=== PATIENT | male | born 1930 | race Hispanic/Latino ===

== ENCOUNTER 2017-12-21 03:59 | Inpatient (IN) | payer MEDICARE ==
[~2017-12-21] VITALS: Ht 188 cm; Wt 94.3 kg
[~2017-12-21 03:59] MED LIST: DIABETA5 M1; NOVOLOG100 UNIT/2; Z.0.DIOVAN160 MG; Z.0.NIASPAN500 MG; Z.0.PRINIVIL20 MG; [UNRECOGNIZED DRUG - OTHER]; [UNRECOGNIZED DRUG - OTHER]
[2017-12-21] MEDS ORDERED: LIDOCAINE JELLY 2% 10ML URO-JET TOP ONE (04:15)
[2017-12-21 04:27] LABS: BASOPHILS # (AUTO) 0.1 (0.0-0.1); BASOPHILS % 0.6 % (0.0-1.0); EOSINOPHILS # (AUTO) 0.3 (0.0-0.4); EOSINOPHILS % 3.3 % (0.0-6.0); HEMATOCRIT 40.2 % (38.2-49.6); HEMOGLOBIN 13.6 g/dL (14.0-18.0); LYMPHOCYTES # (AUTO) 3.2 (1.0-3.2); LYMPHOCYTES % 34.4 % (18.0-39.1); MEAN CORPUSCULAR HEMOGLOBIN 32.8 pg (28-32); MEAN CORPUSCULAR HGB CONC 33.8 g/dL (31-35); MEAN CORPUSCULAR VOLUME 96.9 fL (81-99); MONOCYTES % 10.9 % (4.4-11.3); NEUTROPHILS # (AUTO) 4.7 (2.1-6.9); NEUTROPHILS % 50.3 % (38.7-80.0); PLATELET COUNT 210 x10e3/uL (140-360); RED BLOOD COUNT 4.15 x10e6/uL (4.3-5.7)
[2017-12-21 04:31] LABS: INR 1.15; PROTHROMBIN TIME 13.8 seconds (11.9-14.5)
[2017-12-21 04:32] LABS: PARTIAL THROMBOPLASTIN TIME 32.1 seconds (23.8-35.5)
[2017-12-21 04:41] LABS: ANION GAP 17.8 mmol/L (8-16); CALCIUM 9.7 mg/dL (8.4-10.2); CREATININE, SERUM 2.23 mg/dL (0.72-1.25); POTASSIUM 3.8 mmol/L (3.5-5.1)
[2017-12-21] MEDS ORDERED: MORPHINE SULFATE 2 MG/ML SYR IV STA (05:17)
[2017-12-21] MEDS ORDERED: ONDANSETRON HCL INJ 2 MG/ML VIAL IV STA (05:20)
[2017-12-21] MEDS ORDERED: ONDANSETRON HCL INJ 2 MG/ML VIAL ONE (05:28)
[2017-12-21 05:29] LABS: CLARITY,URINE TURBID (CLEAR); COLOR,URINE RED (YELLOW); LEUKOCYTE ESTERASE ,URINE 1+ (NEGATIVE); NITRITE,URINE POSITIVE (NEGATIVE); PROTEIN,URINE DIPSTICK 3+ (NEGATIVE)
[2017-12-21 05:30] LABS: BACTERIA,URINE FEW /HPF; BILIRUBIN,URINE NEGATIVE (NEGATIVE); KETONES,URINE TRACE (NEGATIVE); RBC,URINE >50 /HPF (0-5); URINE UROBILINOGEN 1 mg/dL (0.2 - 1)
[2017-12-21] MEDS ORDERED: ONDANSETRON HCL 4 MG ORAL DISINTEGRATING TAB PO ONE (05:30)
[2017-12-21] MEDS: LEVOFLOXACIN 250MG/D5W 50ML 50 ML IV SCH (06:10)
[2017-12-21] MEDS ORDERED: DEXTROSE 50% SYRINGE 50 ML IV PRN (06:15)
[2017-12-21] MEDS ORDERED: NIFEDIPINE ER30 M1 PO (06:28)
[2017-12-21] MEDS ORDERED: ALLOPURINOL300 MG PO (06:28)
[2017-12-21] MEDS ORDERED: LORAZEPAM0.5 MG PO (06:28)
[2017-12-21] MEDS ORDERED: HYDRALAZINE HCL10 MG PO (06:28)
[2017-12-21] MEDS ORDERED: FUROSEMIDE20 MG PO (06:28)
[2017-12-21] MEDS ORDERED: DETROL LA4 MG PO (06:28)
[2017-12-21] MEDS ORDERED: MIRALAX17 GM (06:28)
[2017-12-21] MEDS ORDERED: TRADJENTA5 MG PO (06:28)
[2017-12-21] MEDS ORDERED: AVODART0.5 MG PO (06:28)
[2017-12-21] MEDS: INSULIN REGULAR, HUMAN 100 UNIT/1 ML 3ML VIAL SQ SCH ×4 (07:30→21:00)
[2017-12-21 08:00] VITALS: BP 157/72
[2017-12-21] MEDS: MORPHINE SULFATE 2 MG/ML SYR IV PRN ×2 (10:20→14:45)
[2017-12-21 12:00] VITALS: BP 133/62
[2017-12-21] MEDS: SODIUM CHLORIDE 0.9% 1000ML 1,000 ML IV SCH ×2 (12:24→14:45)
[2017-12-21] MEDS ORDERED: POLYETHYLENE GLYCOL 3350 17 GM PACK PO ONE (13:30)
[2017-12-21] MEDS ORDERED: DOCUSATE SODIUM 100 MG CAP PO ONE (13:30)
[2017-12-21 16:00] VITALS: BP 192/85
[2017-12-21] MEDS: HYDRALAZINE HCL 10 MG TAB PO SCH ×2 (17:15→20:59)
[2017-12-21] MEDS: LORAZEPAM 0.5 MG TAB PO SCH (17:44)
[2017-12-21 18:43] LABS: HEMATOCRIT 33.1 % (38.2-49.6); HEMOGLOBIN 11.1 g/dL (14.0-18.0)
[2017-12-21 20:00] VITALS: BP 152/67
--- NOTE | 2017-12-21 20:22 | History and Physical ---
CHIEF COMPLAINT: Bloody urination. 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 He came to us for further evaluation and management and also, had pelvic pain. PAST MEDICAL HISTORY: Prostate cancer, status post radiation therapy about 10 years ago, radiation cystitis with hematuria, diabetes mellitus type 2, hypertension, cigarette use. PAST SURGICAL HISTORY: Appendectomy, hernia repair. ALLERGIES: PER ELECTRONIC MEDICAL RECORD. FAMILY HISTORY/SOCIAL HISTORY: Patient is . He has 6 children. No illicit, alcohol. Remote history of smoking. MEDICATIONS: Per electronic medical record. REVIEW OF SYSTEMS: Denies any dizziness, chest pain, shortness of breath, fever, chills, nausea, vomiting, diarrhea, leg pain, back pain, headache, blurred vision. PHYSICAL EXAMINATION VITAL SIGNS: Reviewed. GENERAL: A tired-appearing man resting in bed. HEENT: Anicteric. Pupils react to light. No oral lesions. CARDIOVASCULAR: Normal S1, S2. He has a 3/6 systolic murmur most prominent in the left chest wall. LUNGS: Moderate breath sounds. ABDOMEN: Soft, nontender. : Benitez in place with pink to red-colored urine. EXTREMITIES: No edema. SKIN: Dry. PSYCHIATRIC: Flat affect. NEUROLOGIC: Alert and oriented times 3. Moving all extremities. LABS: Reviewed. MEDICATIONS: Reviewed. ASSESSMENT AND PLAN: An 87-year-old man. 1. Hematuria. 2. Radiation cystitis. 3. History of prostate cancer. 4. Normocytic anemia. 5. Acute kidney injury. 6. Urinary tract infection. 7. Hypertension. 8. Diabetes mellitus, type 2. 9. Overweight state. PLAN 1. Continue irrigation with Benitez. 2. Urology on board. 3. Follow up blood counts. 4. Continue antibiotics for treatment of the urinary tract infection. 5. Follow up cultures. 6. Use SCD, Pepcid for prophylaxis. 7. Disposition: Follow up labs. Reassess. Job#: [id number] CQ
[2017-12-21 23:45] VITALS: BP 157/72
[2017-12-22] VITALS (10 sets, daily range): BP systolic 126–176; BP diastolic 58–84
[2017-12-22] MEDS: SODIUM CHLORIDE 0.9% 1000ML 1,000 ML IV SCH ×4 (00:35→22:10)
[2017-12-22 05:03] LABS: BASOPHILS % 0.4 % (0.0-1.0); EOSINOPHILS # (AUTO) 0.2 (0.0-0.4); EOSINOPHILS % 2.2 % (0.0-6.0); HEMATOCRIT 33.3 % (38.2-49.6); HEMOGLOBIN 11.3 g/dL (14.0-18.0); LYMPHOCYTES # (AUTO) 2.9 (1.0-3.2); LYMPHOCYTES % 31.1 % (18.0-39.1); MEAN CORPUSCULAR HGB CONC 33.9 g/dL (31-35); MEAN CORPUSCULAR VOLUME 97.4 fL (81-99); MONOCYTES # (AUTO) 0.9 (0.2-0.8); MONOCYTES % 9.7 % (4.4-11.3); NEUTROPHILS # (AUTO) 5.3 (2.1-6.9); NEUTROPHILS % 56.2 % (38.7-80.0); PLATELET COUNT 184 x10e3/uL (140-360); RED BLOOD COUNT 3.42 x10e6/uL (4.3-5.7); RED CELL DISTRIBUTION WIDTH 13.2 % (11.7-14.4)
[2017-12-22] MEDS: MORPHINE SULFATE 2 MG/ML SYR IV PRN ×3 (05:16→19:10)
[2017-12-22] MEDS: LEVOFLOXACIN 250MG/D5W 50ML 50 ML IV SCH (05:20)
[2017-12-22 05:31] LABS: ALBUMIN 3.2 g/dL (3.5-5.0); ANION GAP 12.9 mmol/L (8-16); CALCIUM 8.4 mg/dL (8.4-10.2); CREATININE, SERUM 1.7 mg/dL (0.72-1.25); POTASSIUM 3.9 mmol/L (3.5-5.1)
[2017-12-22] MEDS: FAMOTIDINE 20 MG TAB PO SCH ×2 (07:30→16:30)
[2017-12-22] MEDS: INSULIN REGULAR, HUMAN 100 UNIT/1 ML 3ML VIAL SQ SCH ×4 (07:30→20:17)
[2017-12-22] MEDS: NIFEDIPINE CR 30 MG TAB PO SCH (08:51)
[2017-12-22] MEDS: DUTASTERIDE 0.5 MG CAP PO SCH (08:51)
[2017-12-22] MEDS: TOLTERODINE TARTRATE 4 MG CAPCR PO SCH (08:51)
[2017-12-22] MEDS: POLYETHYLENE GLYCOL 3350 17 GM PACK PO SCH (08:51)
[2017-12-22] MEDS: HYDRALAZINE HCL 10 MG TAB PO SCH ×3 (08:51→20:17)
[2017-12-22] MEDS: DOCUSATE SODIUM 100 MG CAP PO SCH (08:51)
[2017-12-22] MEDS: LORAZEPAM 0.5 MG TAB PO SCH ×2 (08:51→16:36)
[2017-12-22] MEDS: ALLOPURINOL 300 MG TAB PO SCH (08:52)
[2017-12-22] MEDS: ONDANSETRON HCL INJ 2 MG/ML VIAL IV PRN ×2 (14:20→19:10)
[2017-12-22] MEDS: OXYBUTYNIN CHLORIDE 5 MG TAB PO SCH (20:17)
[2017-12-23] VITALS (8 sets, daily range): BP systolic 134–189; BP diastolic 66–82
[2017-12-23] MEDS: MORPHINE SULFATE 2 MG/ML SYR IV PRN ×2 (00:13→09:50)
[2017-12-23] MEDS: LEVOFLOXACIN 250MG/D5W 50ML 50 ML IV SCH (05:45)
[2017-12-23] MEDS: SODIUM CHLORIDE 0.9% 1000ML 1,000 ML IV SCH ×3 (06:40→22:10)
[2017-12-23] MEDS: INSULIN REGULAR, HUMAN 100 UNIT/1 ML 3ML VIAL SQ SCH ×4 (07:30→20:32)
[2017-12-23] MEDS: FAMOTIDINE 20 MG TAB PO SCH ×2 (07:30→16:30)
[2017-12-23] MEDS: POLYETHYLENE GLYCOL 3350 17 GM PACK PO SCH (09:00)
[2017-12-23] MEDS: OXYBUTYNIN CHLORIDE 5 MG TAB PO SCH ×2 (09:00→17:00)
[2017-12-23] MEDS: DOCUSATE SODIUM 100 MG CAP PO SCH ×2 (09:00→17:00)
[2017-12-23] MEDS: NIFEDIPINE CR 30 MG TAB PO SCH (09:00)
[2017-12-23] MEDS: ALLOPURINOL 300 MG TAB PO SCH (09:00)
[2017-12-23] MEDS: LORAZEPAM 0.5 MG TAB PO SCH ×2 (09:00→17:00)
[2017-12-23] MEDS: DUTASTERIDE 0.5 MG CAP PO SCH (09:00)
[2017-12-23] MEDS: HYDRALAZINE HCL 10 MG TAB PO SCH ×3 (09:00→20:32)
[2017-12-23] MEDS: TOLTERODINE TARTRATE 4 MG CAPCR PO SCH (09:00)
[2017-12-23] MEDS: ONDANSETRON HCL INJ 2 MG/ML VIAL IV PRN (09:50)
[2017-12-23] MEDS: BISACODYL 5 MG TAB EC PO SCH (12:00)
[2017-12-23] MEDS: SENNA-S TABLET PO SCH ×2 (12:00→17:00)
[2017-12-23] MEDS ORDERED: COLACE100 M1 PO (16:57)
[2017-12-23] MEDS ORDERED: DULCOLAX5 MG PO (16:57)
[2017-12-23] MEDS ORDERED: FAMOTIDINE20 MG PO (16:57)
[2017-12-23] MEDS ORDERED: SENNA S TABLET1 EACH PO (16:57)
--- NOTE | 2017-12-23 17:05 | Progress Note ---
DATE: December 22, 2017 TIME: 8:15 a.m. OVERNIGHT: Less bloody urine. REVIEW OF SYSTEMS: Denies any dizziness, chest pain. VITAL SIGNS: Reviewed. PHYSICAL EXAMINATION GENERAL: A tired-appearing man resting in bed. HEENT: Anicteric. CARDIOVASCULAR: Normal S1, S2. LUNGS: Moderate breath sounds. ABDOMEN: Soft, nontender. : He has a Benitez in place with more yellow-colored urine. EXTREMITIES: No edema. SKIN: Dry. PSYCHIATRIC: Normal affect. LABS: Reviewed. MEDICATIONS: Reviewed. ASSESSMENT AND PLAN: An 87-year-old man. 1. Hematuria. 2. Radiation cystitis. 3. History of prostate cancer. 4. Normocytic anemia. 5. Acute kidney injury. 6. Urinary tract infection. 7. Hypertension. 8. Diabetes mellitus, type 2. 9. Overweight state. PLAN 1. Renal function improving. 2. Continue Benitez. 3. Follow up urology's recommendations. 4. Follow up cultures. Job#: [id number]
--- NOTE | 2017-12-23 17:13 | Progress Note ---
DATE: December 23, 2017 MEDICINE PROGRESS NOTE TIME OF SERVICE: 8:15 a.m. SUBJECTIVE: Overnight no events. REVIEW OF SYSTEMS: Denies any dizziness, chest pain, shortness of breath, fever, chills, sweats, nausea, vomiting, diarrhea. VITAL SIGNS: Reviewed. PHYSICAL EXAMINATION GENERAL APPEARANCE: A tired-appearing man resting in bed. HEENT: Anicteric. CARDIOVASCULAR: Normal S1/S2. A 3/6 systolic murmur. LUNGS: Moderate breath sounds. ABDOMEN: Soft, nontender. : He has Benitez in place with yellow-colored urine. EXTREMITIES: No edema. SKIN: Dry. PSYCHIATRIC: Normal affect. LABS: Reviewed. MEDICATIONS: Reviewed. ASSESSMENT: An 87-year-old man. 1. Hematuria. 2. Radiation cystitis. 3. History of prostate cancer. 4. Normocytic anemia. 5. Acute kidney injury. 6. Hypertension. 7. Diabetes mellitus type 2. 8. Overweight state. PLAN 1. Continue supportive care. 2. Urine is better. 3. Continue Benitez. 4. Will need to follow up outpatient. 5. Hemoglobin yesterday was stable. 6. Glucoses are stable. 7. Obtain labs today. If renal function continues to improve and hemoglobin is stable, patient can theoretically be discharged home later today. Job#: [id number] EV
[2017-12-23 17:16] LABS: HEMATOCRIT 32.3 % (38.2-49.6); HEMOGLOBIN 10.9 g/dL (14.0-18.0)
[2017-12-23 17:31] LABS: ANION GAP 15.2 mmol/L (8-16); CALCIUM 8.7 mg/dL (8.4-10.2); CREATININE, SERUM 1.64 mg/dL (0.72-1.25); POTASSIUM 4.2 mmol/L (3.5-5.1)
[2017-12-24] MEDS: SODIUM CHLORIDE 0.9% 1000ML 1,000 ML IV SCH ×4 (02:04→22:10)
[2017-12-24] MEDS: MORPHINE SULFATE 2 MG/ML SYR IV PRN ×2 (03:50→10:15)
[2017-12-24 04:05] VITALS: BP 135/65
[2017-12-24] MEDS: LEVOFLOXACIN 250MG/D5W 50ML 50 ML IV SCH (05:25)
[2017-12-24] MEDS: FAMOTIDINE 20 MG TAB PO SCH ×2 (07:45→17:25)
[2017-12-24 08:00] VITALS: BP 148/68
[2017-12-24] MEDS: INSULIN REGULAR, HUMAN 100 UNIT/1 ML 3ML VIAL SQ SCH ×4 (08:00→21:00)
[2017-12-24] MEDS: BISACODYL 5 MG TAB EC PO SCH (08:20)
[2017-12-24] MEDS: DUTASTERIDE 0.5 MG CAP PO SCH (08:20)
[2017-12-24] MEDS: TOLTERODINE TARTRATE 4 MG CAPCR PO SCH (08:20)
[2017-12-24] MEDS: ALLOPURINOL 300 MG TAB PO SCH (08:20)
[2017-12-24] MEDS: DOCUSATE SODIUM 100 MG CAP PO SCH ×2 (08:20→17:25)
[2017-12-24] MEDS: HYDRALAZINE HCL 10 MG TAB PO SCH ×3 (08:20→21:10)
[2017-12-24] MEDS: LORAZEPAM 0.5 MG TAB PO SCH ×2 (08:20→17:25)
[2017-12-24] MEDS: NIFEDIPINE CR 30 MG TAB PO SCH (08:20)
[2017-12-24] MEDS: POLYETHYLENE GLYCOL 3350 17 GM PACK PO SCH (08:20)
[2017-12-24] MEDS: OXYBUTYNIN CHLORIDE 5 MG TAB PO SCH ×2 (08:20→17:25)
[2017-12-24] MEDS: SENNA-S TABLET PO SCH ×2 (08:20→17:25)
[2017-12-24] MEDS: ONDANSETRON HCL INJ 2 MG/ML VIAL IV PRN (10:15)
[2017-12-24 12:00] VITALS: BP 153/67
[2017-12-24] MEDS ORDERED: MORPHINE SULFATE INJ 4 MG/ML INJ IV PRN (14:15)
[2017-12-24] MEDS: TRAMADOL/APAP 37.5MG-325MG TAB PO PRN (15:44)
[2017-12-24 16:00] VITALS: BP 183/88
--- NOTE | 2017-12-24 17:54 | Diagnostic Imaging Report ---
EXAMINATION: Renal ultrasound. CLINICAL HISTORY :Hematuria, bladder irrigation COMPARISON: <None available.> TECHNIQUE: Grayscale and color Doppler evaluation of the kidneys and bladder was performed in transverse and longitudinal planes. DISCUSSION: RIGHT KIDNEY: The right kidney measures 9.9 cm in length and shows increased echogenicity. No hydronephrosis, shadowing calculi or solid mass lesions. 2 cm and 1.8 cm renal cyst. LEFT KIDNEY: The left kidney measures 10.2 cm in length and shows increased echogenicity. No hydronephrosis, shadowing calculi or solid mass lesions. 2.4 cm renal cyst. BLADDER: Unremarkable. IMPRESSION: Mildly increased renal cortical echogenicity can be seen in medical renal disease. No obstruction. Simple renal cysts. Signed by: Dr. Antonio Medina M.D. on 12/24/2017 5:50 PM
[2017-12-24 20:00] VITALS: BP 155/69
[2017-12-24 20:25] VITALS: BP 155/69
[2017-12-25] VITALS (7 sets, daily range): BP systolic 126–172; BP diastolic 59–79
[2017-12-25] MEDS: TRAMADOL/APAP 37.5MG-325MG TAB PO PRN ×2 (03:43→10:50)
[2017-12-25] MEDS: LEVOFLOXACIN 250MG/D5W 50ML 50 ML IV SCH (05:40)
[2017-12-25] MEDS: SODIUM CHLORIDE 0.9% 1000ML 1,000 ML IV SCH ×3 (06:10→22:25)
[2017-12-25 06:39] LABS: HEMATOCRIT 29.1 % (38.2-49.6); HEMOGLOBIN 9.8 g/dL (14.0-18.0)
[2017-12-25 06:56] LABS: ANION GAP 13.2 mmol/L (8-16); CALCIUM 8.5 mg/dL (8.4-10.2); CREATININE, SERUM 1.63 mg/dL (0.72-1.25); POTASSIUM 4.2 mmol/L (3.5-5.1)
[2017-12-25] MEDS: INSULIN REGULAR, HUMAN 100 UNIT/1 ML 3ML VIAL SQ SCH ×4 (08:00→21:00)
[2017-12-25] MEDS: SENNA-S TABLET PO SCH ×2 (09:00→15:19)
[2017-12-25] MEDS: POLYETHYLENE GLYCOL 3350 17 GM PACK PO SCH (09:00)
[2017-12-25] MEDS: DOCUSATE SODIUM 100 MG CAP PO SCH ×2 (09:00→15:19)
[2017-12-25] MEDS: BISACODYL 5 MG TAB EC PO SCH (09:00)
[2017-12-25] MEDS: HYDRALAZINE HCL 10 MG TAB PO SCH ×3 (09:54→22:25)
[2017-12-25] MEDS: FAMOTIDINE 20 MG TAB PO SCH ×2 (09:54→17:02)
[2017-12-25] MEDS: DUTASTERIDE 0.5 MG CAP PO SCH (09:54)
[2017-12-25] MEDS: TOLTERODINE TARTRATE 4 MG CAPCR PO SCH (09:54)
[2017-12-25] MEDS: OXYBUTYNIN CHLORIDE 5 MG TAB PO SCH ×2 (09:54→15:19)
[2017-12-25] MEDS: LORAZEPAM 0.5 MG TAB PO SCH ×2 (09:54→17:02)
[2017-12-25] MEDS: NIFEDIPINE CR 30 MG TAB PO SCH (09:54)
[2017-12-25] MEDS: ALLOPURINOL 300 MG TAB PO SCH (09:54)
[2017-12-26] VITALS (10 sets, daily range): BP systolic 121–160; BP diastolic 57–76
[2017-12-26] MEDS: LEVOFLOXACIN 250MG/D5W 50ML 50 ML IV SCH (05:44)
[2017-12-26] MEDS: SODIUM CHLORIDE 0.9% 1000ML 1,000 ML IV SCH ×2 (06:10→13:11)
[2017-12-26] MEDS: INSULIN REGULAR, HUMAN 100 UNIT/1 ML 3ML VIAL SQ SCH ×4 (08:30→21:31)
[2017-12-26] MEDS: HYDRALAZINE HCL 10 MG TAB PO SCH ×3 (08:50→21:29)
[2017-12-26] MEDS: OXYBUTYNIN CHLORIDE 5 MG TAB PO SCH ×2 (08:50→16:51)
[2017-12-26] MEDS: TOLTERODINE TARTRATE 4 MG CAPCR PO SCH (08:50)
[2017-12-26] MEDS: BISACODYL 5 MG TAB EC PO SCH (08:50)
[2017-12-26] MEDS: LORAZEPAM 0.5 MG TAB PO SCH ×2 (08:50→16:51)
[2017-12-26] MEDS: DOCUSATE SODIUM 100 MG CAP PO SCH ×2 (08:50→11:15)
[2017-12-26] MEDS: DUTASTERIDE 0.5 MG CAP PO SCH (08:50)
[2017-12-26] MEDS: FAMOTIDINE 20 MG TAB PO SCH ×2 (08:50→16:51)
[2017-12-26] MEDS: SENNA-S TABLET PO SCH ×2 (08:51→11:15)
[2017-12-26] MEDS: ALLOPURINOL 300 MG TAB PO SCH (08:51)
[2017-12-26] MEDS: POLYETHYLENE GLYCOL 3350 17 GM PACK PO SCH (08:51)
[2017-12-26] MEDS: NIFEDIPINE CR 30 MG TAB PO SCH (08:51)
--- NOTE | 2017-12-26 12:41 | Progress Note ---
DATE: December 24, 2017 TIME: 07:15 a.m. SUBJECTIVE: Overnight, some blood-tinged urine. Has had constipation. No bowel movement. REVIEW OF SYSTEMS: Denies any dizziness, chest pain, shortness of breath, fever, chills, and sweats. PHYSICAL EXAMINATION VITAL SIGNS: Reviewed. GENERAL: A tired-appearing man, resting in bed. HEENT: Anicteric. CARDIOVASCULAR: Normal S1, S2. He has a 3/6 systolic murmur. LUNGS: Bilateral breath sounds. ABDOMEN: Soft, nontender. : He has a Benitez in place, pink-colored urine. EXTREMITIES: No edema. SKIN: Dry. PSYCHIATRIC: Flat affect. LABORATORY DATA: Reviewed. MEDICATIONS: Reviewed. ASSESSMENT: An 87-year-old man with; 1. Hematuria. 2. Radiation cystitis. 3. History of prostate cancer. 4. Normocytic anemia. 5. Acute kidney injury. 6. Hypertension. 7. Diabetes mellitus type 2. 8. Overweight state. PLAN 1. Obtain renal ultrasound. 2. Continue bladder irrigation. 3. Continue to monitor blood counts. 4. Keep hospitalized and monitor. Job#: [id number] TIFFANIE
--- NOTE | 2017-12-26 12:53 | Progress Note ---
DATE: December 26, 2017 TIME: 07:30 a.m. SUBJECTIVE: Overnight, had some spasms of the GI tract with the bowel regimen. REVIEW OF SYSTEMS: Denies any dizziness, chest pain, shortness of breath, fever, chills, sweats, nausea, vomiting, or headache. PHYSICAL EXAMINATION VITAL SIGNS: Have been reviewed. GENERAL: A tired-appearing man, resting in bed. HEENT: Anicteric. CARDIOVASCULAR: Normal S1, S2. He has a 3/6 systolic murmur. LUNGS: Moderate breath sounds. ABDOMEN: Soft, nontender. : He has Benitez in place. EXTREMITIES: No edema. SKIN: Dry. PSYCHIATRIC: Normal affect. LABORATORY DATA: Reviewed. MEDICATIONS: Reviewed. ASSESSMENT: An 87-year-old man with; 1. Hematuria. 2. Radiation cystitis. 3. History of prostate cancer. 4. Normocytic anemia. 5. Constipation. 6. Acute kidney injury. 7. Hypertension. 8. Diabetes mellitus type 2. 9. Overweight state. PLAN 1. Continue bladder irrigation. 2. Reduce bowel regimen as he is having some mild bowel spasms. 3. Renal ultrasound showed increased renal cortical echogenicity suggestive of medical renal disease. 4. 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 We will continue to monitor. 5. Continue irrigations and follow up per urology. Job#: [id number] TIFFANIE
--- NOTE | 2017-12-26 12:56 | Progress Note ---
DATE: December 25, 2017 TIME: 06:15 a.m. SUBJECTIVE: Overnight, no events. REVIEW OF SYSTEMS: Denies any dizziness, chest pain, shortness of breath, fever, chills, sweats, nausea, vomiting, or diarrhea. PHYSICAL EXAMINATION VITAL SIGNS: Reviewed. GENERAL: A tired-appearing man, resting in bed. HEENT: Anicteric. CARDIOVASCULAR: Normal S1 and S2. LUNGS: Moderate breath sounds. ABDOMEN: Soft and nontender. : He has a Benitez in place. EXTREMITIES: No edema or calf tenderness. NEUROLOGICAL: Alert and appropriate. Moving all extremities. SKIN: Dry. PSYCHIATRIC: Flat affect. LABORATORY DATA: Reviewed. MEDICATIONS: Reviewed. ASSESSMENT AND PLAN: An 87-year-old man with; 1. Hematuria. 2. Radiation cystitis. 3. History of prostate cancer. 4. Normocytic anemia. 5. Acute kidney injury. 6. Hypertension. 7. Diabetes mellitus type 2. 8. Overweight state. 9. Constipation. PLAN 1. Augment bowel regimen. 2. Continue bladder irrigation. 3. Continue monitor blood counts. 4. Follow up urology recommendation. 5. Continue Benitez. Job#: [id number] FRANNY
[2017-12-27] VITALS (7 sets, daily range): BP systolic 144–171; BP diastolic 71–89
[2017-12-27] MEDS: TRAMADOL/APAP 37.5MG-325MG TAB PO PRN (00:30)
[2017-12-27] MEDS: SODIUM CHLORIDE 0.9% 1000ML 1,000 ML IV SCH ×4 (01:32→23:33)
[2017-12-27] MEDS: LEVOFLOXACIN 250MG/D5W 50ML 50 ML IV SCH (05:34)
[2017-12-27] MEDS: INSULIN REGULAR, HUMAN 100 UNIT/1 ML 3ML VIAL SQ SCH ×4 (07:30→20:37)
[2017-12-27] MEDS: LORAZEPAM 0.5 MG TAB PO SCH ×2 (08:16→17:15)
[2017-12-27] MEDS: FAMOTIDINE 20 MG TAB PO SCH ×2 (08:16→17:15)
[2017-12-27] MEDS: HYDRALAZINE HCL 10 MG TAB PO SCH ×3 (08:16→20:38)
[2017-12-27] MEDS: SENNA-S TABLET PO SCH ×2 (08:22→17:15)
[2017-12-27] MEDS: POLYETHYLENE GLYCOL 3350 17 GM PACK PO SCH (08:22)
[2017-12-27] MEDS: ALLOPURINOL 300 MG TAB PO SCH (08:22)
[2017-12-27] MEDS: BISACODYL 5 MG TAB EC PO SCH (08:22)
[2017-12-27] MEDS: TOLTERODINE TARTRATE 4 MG CAPCR PO SCH (08:22)
[2017-12-27] MEDS: DOCUSATE SODIUM 100 MG CAP PO SCH ×2 (08:22→17:15)
[2017-12-27] MEDS: OXYBUTYNIN CHLORIDE 5 MG TAB PO SCH ×2 (08:22→17:15)
[2017-12-27] MEDS: DUTASTERIDE 0.5 MG CAP PO SCH (08:22)
[2017-12-27] MEDS: NIFEDIPINE CR 30 MG TAB PO SCH (08:22)
[2017-12-27 09:02] LABS: BASOPHILS % 0.4 % (0.0-1.0); EOSINOPHILS # (AUTO) 0.5 (0.0-0.4); EOSINOPHILS % 5.2 % (0.0-6.0); HEMATOCRIT 29.9 % (38.2-49.6); HEMOGLOBIN 10.1 g/dL (14.0-18.0); LYMPHOCYTES # (AUTO) 1.2 (1.0-3.2); LYMPHOCYTES % 11.8 % (18.0-39.1); MEAN CORPUSCULAR HEMOGLOBIN 33.1 pg (28-32); MEAN CORPUSCULAR HGB CONC 33.8 g/dL (31-35); MONOCYTES # (AUTO) 1.1 (0.2-0.8); MONOCYTES % 10.3 % (4.4-11.3); NEUTROPHILS # (AUTO) 7.5 (2.1-6.9); NEUTROPHILS % 71.6 % (38.7-80.0); PLATELET COUNT 254 x10e3/uL (140-360); RED BLOOD COUNT 3.05 x10e6/uL (4.3-5.7); RED CELL DISTRIBUTION WIDTH 13.7 % (11.7-14.4)
[2017-12-27 09:18] LABS: CREATININE, SERUM 1.68 mg/dL (0.72-1.25)
[2017-12-27] MEDS: ROPINIROLE HCL 1 MG TAB PO SCH (20:38)
[2017-12-27] MEDS: ZOLPIDEM TARTRATE 5 MG TAB PO SCH (20:38)
[2017-12-28] VITALS (7 sets, daily range): BP systolic 122–156; BP diastolic 63–83
[2017-12-28] MEDS: SODIUM CHLORIDE 0.9% 1000ML 1,000 ML IV SCH ×2 (07:17→14:11)
[2017-12-28] MEDS: INSULIN REGULAR, HUMAN 100 UNIT/1 ML 3ML VIAL SQ SCH ×4 (07:30→20:24)
[2017-12-28] MEDS: FAMOTIDINE 20 MG TAB PO SCH ×2 (08:28→16:36)
[2017-12-28] MEDS: BISACODYL 5 MG TAB EC PO SCH (08:50)
[2017-12-28] MEDS: OXYBUTYNIN CHLORIDE 5 MG TAB PO SCH ×2 (08:50→16:36)
[2017-12-28] MEDS: HYDRALAZINE HCL 10 MG TAB PO SCH ×3 (08:50→20:42)
[2017-12-28] MEDS: DUTASTERIDE 0.5 MG CAP PO SCH (08:50)
[2017-12-28] MEDS: TOLTERODINE TARTRATE 4 MG CAPCR PO SCH (08:50)
[2017-12-28] MEDS: LORAZEPAM 0.5 MG TAB PO SCH ×2 (08:50→20:42)
[2017-12-28] MEDS: DOCUSATE SODIUM 100 MG CAP PO SCH ×2 (08:50→16:36)
[2017-12-28] MEDS: NIFEDIPINE CR 30 MG TAB PO SCH (08:51)
[2017-12-28] MEDS: POLYETHYLENE GLYCOL 3350 17 GM PACK PO SCH (08:51)
[2017-12-28] MEDS: ROPINIROLE HCL 1 MG TAB PO SCH (08:51)
[2017-12-28] MEDS: SENNA-S TABLET PO SCH ×2 (08:51→16:36)
[2017-12-28] MEDS: ALLOPURINOL 300 MG TAB PO SCH (08:51)
[2017-12-28] MEDS: ZOLPIDEM TARTRATE 5 MG TAB PO SCH (16:56)
[2017-12-29] VITALS (34 sets, daily range): BP systolic 75–175; BP diastolic 48–87
[2017-12-29] MEDS: SODIUM CHLORIDE 0.9% 1000ML 1,000 ML IV SCH ×3 (01:01→14:10)
[2017-12-29 04:34] LABS: BASOPHILS % 0.5 % (0.0-1.0); EOSINOPHILS # (AUTO) 0.2 (0.0-0.4); EOSINOPHILS % 2.8 % (0.0-6.0); HEMATOCRIT 28.8 % (38.2-49.6); HEMOGLOBIN 9.6 g/dL (14.0-18.0); LYMPHOCYTES # (AUTO) 1.1 (1.0-3.2); LYMPHOCYTES % 12.1 % (18.0-39.1); MEAN CORPUSCULAR HEMOGLOBIN 32.1 pg (28-32); MEAN CORPUSCULAR HGB CONC 33.3 g/dL (31-35); MEAN CORPUSCULAR VOLUME 96.3 fL (81-99); MONOCYTES % 11.2 % (4.4-11.3); NEUTROPHILS # (AUTO) 6.3 (2.1-6.9); NEUTROPHILS % 72.7 % (38.7-80.0); PLATELET COUNT 296 x10e3/uL (140-360); RED BLOOD COUNT 2.99 x10e6/uL (4.3-5.7); RED CELL DISTRIBUTION WIDTH 13.4 % (11.7-14.4)
[2017-12-29 04:54] LABS: ANION GAP 14.6 mmol/L (8-16); CALCIUM 8.8 mg/dL (8.4-10.2); CREATININE, SERUM 1.42 mg/dL (0.72-1.25); POTASSIUM 3.6 mmol/L (3.5-5.1)
[2017-12-29] MEDS: INSULIN REGULAR, HUMAN 100 UNIT/1 ML 3ML VIAL SQ SCH ×3 (07:30→21:00)
[2017-12-29] MEDS: FAMOTIDINE 20 MG TAB PO SCH ×2 (07:30→16:30)
[2017-12-29] MEDS: HYDRALAZINE HCL 10 MG TAB PO SCH ×3 (09:00→21:00)
[2017-12-29] MEDS: LORAZEPAM 0.5 MG TAB PO SCH ×3 (09:35→21:00)
[2017-12-29] MEDS: POLYETHYLENE GLYCOL 3350 17 GM PACK PO SCH (09:35)
[2017-12-29] MEDS: DOCUSATE SODIUM 100 MG CAP PO SCH ×2 (09:35→17:00)
[2017-12-29] MEDS: DUTASTERIDE 0.5 MG CAP PO SCH (09:35)
[2017-12-29] MEDS: BISACODYL 5 MG TAB EC PO SCH (09:35)
[2017-12-29] MEDS: OXYBUTYNIN CHLORIDE 5 MG TAB PO SCH ×2 (09:35→17:00)
[2017-12-29] MEDS: TOLTERODINE TARTRATE 4 MG CAPCR PO SCH (09:35)
[2017-12-29] MEDS: ALLOPURINOL 300 MG TAB PO SCH (09:36)
[2017-12-29] MEDS: ROPINIROLE HCL 1 MG TAB PO SCH (09:36)
[2017-12-29] MEDS: NIFEDIPINE CR 30 MG TAB PO SCH (09:36)
[2017-12-29] MEDS: SENNA-S TABLET PO SCH ×2 (09:36→17:00)
[2017-12-29] MEDS: PROPOFOL IV EMULSION 10MG/ML 100 ML IV SCH ×2 (14:00→19:25)
[2017-12-29] MEDS ORDERED: PROPOFOL IV EMULSION 10MG/ML 100 ML IV SCH (14:15)
[2017-12-29] MEDS ORDERED: VANCOMYCIN 1GM/NS 250 ML 250 ML IV ONE (14:15)
[2017-12-29] MEDS ORDERED: CEFEPIME HCL 1 GM VIAL IV SCH (14:30)
[2017-12-29] MEDS ORDERED: SUCCINYLCHOLINE CHLORIDE 20 MG/ML 10ML VIAL ONE (14:31)
[2017-12-29] MEDS ORDERED: ETOMIDATE 40 MG/ 20ML VIAL IV ONE (14:31)
[2017-12-29] MEDS ORDERED: AZTREONAM 1 GM VIAL IV SCH (15:00)
[2017-12-29 15:04] LABS: BASOPHILS # (AUTO) 0.1 (0.0-0.1); BASOPHILS % 0.5 % (0.0-1.0); EOSINOPHILS # (AUTO) 0.1 (0.0-0.4); EOSINOPHILS % 0.8 % (0.0-6.0); HEMATOCRIT 30.6 % (38.2-49.6); HEMOGLOBIN 10.3 g/dL (14.0-18.0); LYMPHOCYTES # (AUTO) 2.7 (1.0-3.2); LYMPHOCYTES % 20.3 % (18.0-39.1); MEAN CORPUSCULAR HEMOGLOBIN 33.3 pg (28-32); MEAN CORPUSCULAR HGB CONC 33.7 g/dL (31-35); MONOCYTES # (AUTO) 1.4 (0.2-0.8); NEUTROPHILS # (AUTO) 9.1 (2.1-6.9); NEUTROPHILS % 67.4 % (38.7-80.0); PLATELET COUNT 338 x10e3/uL (140-360); RED BLOOD COUNT 3.09 x10e6/uL (4.3-5.7); RED CELL DISTRIBUTION WIDTH 13.6 % (11.7-14.4)
[2017-12-29 15:10] LABS: INR 1.33; PROTHROMBIN TIME 15.5 seconds (11.9-14.5)
[2017-12-29 15:16] LABS: ALBUMIN/GLOBULIN RATIO 0.8 (0.8-2.0); ANION GAP 16.3 mmol/L (8-16); CREATININE, SERUM 1.58 mg/dL (0.72-1.25); POTASSIUM 4.3 mmol/L (3.5-5.1)
[2017-12-29 16:06] LABS: CREATINE KINASE MB 9.1 ng/mL (0-5.0)
[2017-12-29 16:16] LABS: ABG HCO3 21 mmol/L (23-28); ABG PCO2 48 mmHg (41-51); ABG PH 7.26 (7.31-7.41); ABG PO2 298 mmHg (80-105)
[2017-12-29 16:48] LABS: ABG HCO3 22 mmol/L (23-28); ABG PCO2 37 mmHg (41-51); ABG PH 7.38 (7.31-7.41); ABG PO2 158 mmHg (80-105)
[2017-12-29] MEDS ORDERED: ENOXAPARIN SOD INJ 40 MG/0.4 ML SYR SC SCH (17:00)
--- NOTE | 2017-12-29 18:06 | Diagnostic Imaging Report ---
History: Unresponsive, CODE BLUE Comparison studies: None Technique: Axial images were obtained from the skull base to the vertex. Coronal and sagittal reconstructions obtained from the axial data. Dose modulation, iterative reconstruction, and/or weight based adjustment of the mA/kV was utilized to reduce the radiation dose to as low as reasonably achievable. Findings: Scalp/skull: No abnormalities. No fractures, blastic or lytic lesions. Extra-axial spaces: No masses. No fluid collections. Brain sulci: Mildly prominent. Ventricles: Mild compensatory dilatation. No hydrocephalus. Parenchyma: Ill defined confluent hypodensities in the supratentorial white matter are small vessel ischemic changes. No masses, hemorrhage, acute or chronic cortical vascular insults. Sellar/suprasellar region: No abnormalities Craniocervical junction: Patent foramen magnum. No Chiari one malformation. Incidental findings: Focal nonspecific inflammatory changes in the right mastoid cavity and in multiple mastoid air cells. Atherosclerotic calcifications in the carotid siphons. IMPRESSION: No acute abnormalities. Chronic findings: 1. Mild generalized volume loss. 2. Moderate supratentorial white matter small vessel ischemic changes. Signed by: Dr. Eben Hilario M.D. on 12/29/2017 6:02 PM
--- NOTE | 2017-12-29 18:09 | Consultation ---
DATE OF CONSULTATION: PULMONARY/CRITICAL CARE CONSULTATION REASON FOR CONSULTATION: Status post cardiac arrest and code. ATTENDING PHYSICIAN: Dr. Vidal Samson. HISTORY OF PRESENT ILLNESS: The patient is an 87-year-old man with a history of prostate cancer and radiation therapy about 10 years ago, who came in with hematuria, painful voiding, and lower abdominal pain. He was getting bladder irrigations. Apparently there was a plan to send him to care home. However, apparently over the past couple of days the patient has been having more and more anxiety and then today got very agitated. According to the daughter, there was some change in how he was breathing but he was able to get up, he was able to walk. His speech did change number operator the previous days, but again he could walk. There were no complaints of cough, sputum, chest pain, shortness of breath. Ultimately today at about 1310 a code was called. Initially he had no pulse. CPR was started, and at 1312 he had a pulse, a blood pressure of 120/67, a heart rate of 136, and his saturation was 92%. An IV was started, and he was subsequently intubated. He is now on the ventilator. PAST MEDICAL HISTORY: Again includes hypertension, diabetes mellitus, prostate cancer with radiation therapy, and radiation cystitis with subsequent hematuria. PAST SURGICAL HISTORY: Includes herniorrhaphy and appendectomy. DRUG ALLERGIES: NOTED. CURRENT MEDICATIONS: Reviewed. SOCIAL HISTORY: Smoked in the distant past, no alcohol. He is , has multiple children. FAMILY HISTORY: Noncontributory. REVIEW OF SYSTEMS: Unobtainable. PHYSICAL EXAMINATION VITAL SIGNS: Currently he is afebrile. His heart rate is 90 with a 1st-degree AV block on the greenkeeper. His saturation is 100%. His blood pressure is 125/69. He is receiving propofol infusion. GENERAL APPEARANCE: This is an elderly man. He does open his eyes to tactile stimuli. He does withdraw from pain. He does grimace to noxious stimuli. HEENT: His pupils are reactive. Sclerae are anicteric. He is orally intubated with an 8 endotracheal tube. NECK: Supple. Trachea is midline. CHEST: Has a few basilar crackles, more on the left than the right. HEART: Has a regular rate and rhythm with an apical murmur. ABDOMEN: Soft, nontender, nondistended. EXTREMITIES: Have no cyanosis, clubbing or edema. NEUROLOGICALLY: Again, he is sedated. X-ray shows endotracheal tube in place. There is a vague opacity at the right base. LABORATORY DATA: White count is 13, hemoglobin and hematocrit are 10 and 30 with platelets of 338,000. His coags today: His INR is 1.33. ABG has a pH of 7.26, pCO2 of 48, pO2 of 298 on 100%. Sodium 138, potassium 4.3, chloride 100, carbon dioxide 19, BUN and creatinine are 18 and 1.58 with an estimated GFR of 42. Glucose 194. AST mildly elevated at 36, ALT is normal, alk phos normal. He did have a CK of 335, a CK-MB of 9 and a troponin of 0.016 (normal) at 1340 immediately post arrest. Albumin is mildly low at 3.4. Urinalysis when he came in had greater than 50 red blood cells, 11-20 white blood cells, a few bacteria, nitrite positive with proteinuria and glucosuria. IMPRESSION 1. Cardiopulmonary arrest, possible acute respiratory arrest, status post cardiopulmonary resuscitation without requiring advanced cardiac drugs. 2. Acute respiratory failure. 3. Right lower lobe pneumonia, possible. 4. Chronic kidney disease. 5. Metabolic acidosis. 6. Hematuria with history of radiation cystitis. 7. Diabetes mellitus. 8. Dysphonia. RECOMMENDATIONS AND PLAN: He will be kept sedated. We have adjusted the ventilator. We will give him nebulized bronchodilators, culture his sputum and put him on Zosyn for aspiration pneumonia. He will get DVT prophylaxis with Lovenox 40. He will have a CT of the chest and head as well as an echocardiogram. He will have cardiac enzymes to rule out RI. We will evaluate him for weaning in the morning, and if he is not better during rounds we will start him on nutrition. Case was discussed with the nurse and respiratory therapist. The daughter and were also interviewed to the events of the preceding days. A chest x-ray and labs were reviewed. Total time spent in direct care of this patient 55 minutes. Job#: [id number] EV
--- NOTE | 2017-12-29 18:16 | Diagnostic Imaging Report ---
EXAM: CT Chest WITHOUT contrast INDICATION: \S\resp failure \[id number] \S\1720 COMPARISON: Chest x-ray of the same day TECHNIQUE: Chest was scanned utilizing a multidetector helical scanner from the lung apex through the level of the adrenal glands without administration of IV contrast. Absence of intravenous contrast decreases sensitivity for detection of lymphadenopathy and vascular pathology. Coronal and sagittal reformations were obtained. Routine protocol was performed. IV CONTRAST: None COMPLICATIONS: None RADIATION DOSE: Total DLP: 1606.4 mGy*cm Estimated effective dose: (DLP x 0.014 x size factor) mSv CTDIvol has been reviewed. It is below the limits set by the Radiation Protocol Committee (RPC). FINDINGS: Limited ascites and streak artifacts. LINES/ TUBES: Endotracheal tube in place with tip terminating in mid trachea. LUNGS AND AIRWAYS: Bilateral lower lobe consolidations with air bronchograms. There is also mild bibasilar scarring. 4 mm left apical nodule (series 3, image 22). 4 mm lingular nodule (3/78). Airways are normal. PLEURA: No significant pleural effusion or evidence of pneumothorax. Possible trace bilateral pleural effusions. Evaluation is limited due to streak artifacts. HEART AND MEDIASTINUM: The thyroid gland is normal. No mediastinal, hilar or axillary lymphadenopathy. Nonspecific scattered subcentimeter mediastinal lymph nodes. The heart is normal in size.. There is no pericardial effusion. Main pulmonary artery measures 3.8 cm, suggestive of pulmonary hypertension. Moderate atherosclerotic calcification of aortic arch and mild coronary artery calcification. Calcification aortic annulus. UPPER ABDOMEN: Right hepatic lobe calcified granuloma. Partially imaged 3 cm left renal superior pole hypodensity, likely a cyst. Partially imaged 1.2 cm left adrenal base nodule with internal density of 3 Hounsfield units, representing an adenoma. BONES: Degenerative changes of thoracic spine and shoulder joints. SOFT TISSUES: Unremarkable. IMPRESSION: 1. Bilateral lower lobe consolidations with air bronchograms, representing atelectasis and/or aspiration/pneumonia. 2. Enlarged main pulmonary artery, suggestive of pulmonary hypertension. 3. Nonspecific left lung nodules. Without risk factors, no follow-up is necessary. With risk factors, follow-up with low-dose chest CT in one year is recommended. Signed by: Dr. Ld Alarcon MD on 12/29/2017 6:12 PM
--- NOTE | 2017-12-29 18:22 | Diagnostic Imaging Report ---
EXAMINATION: CHEST SINGLE (PORTABLE) INDICATION: \S\post ett placement \S\[id number] \S\1415 COMPARISON: None FINDINGS: AP view TUBES and LINES: Endotracheal tube in place with tip terminating 4.9 cm above candy. LUNGS: Lungs are well inflated. Bilateral lower lung field consolidation. Mild vascular congestion. PLEURA: No significant pleural effusion or pneumothorax. HEART AND MEDIASTINUM: The cardiomediastinal silhouette is enlarged on this AP view. BONES AND SOFT TISSUES: No acute osseous lesion. Soft tissues are unremarkable. UPPER ABDOMEN: No free air under the diaphragm. IMPRESSION: Bilateral lower lung field consolidations, representing atelectasis and/or pneumonia. Enlarged cardiomediastinal silhouette on this AP view. Signed by: Dr. Ld Alarcon MD on 12/29/2017 6:19 PM
[2017-12-29] MEDS ORDERED: PROPOFOL IV EMULSION 10MG/ML 100 ML ONE (19:04)
[2017-12-29] MEDS ORDERED: VANCOMYCIN 1GM/NS 250 ML 250 ML ONE (19:12)
[2017-12-29] MEDS ORDERED: AZTREONAM 1 GM VIAL ONE ×2 (19:12→21:26)
[2017-12-29] MEDS ORDERED: SODIUM CHLORIDE 0.9% 250ML 250 ML ONE (19:13)
[2017-12-29] MEDS: AZTREONAM (AZACTAM) 0.5 GM in SODIUM CHLORIDE 0.9% 50ML 50 ML IV SCH ×2 (19:25→22:35)
[2017-12-29] MEDS: IPRATROPIUM BROMIDE 0.02% 2.5 ML NEB NEB SCH (19:50)
--- NOTE | 2017-12-29 21:13 | Progress Note ---
DATE: December 27, 2017 TIME: 7:00 a.m. Overnight, patient has restless legs and some confusion overnight. REVIEW OF SYSTEMS: Unreliable. PHYSICAL EXAMINATION VITAL SIGNS: Reviewed. GENERAL: A tired-appearing man, resting in bed. HEENT: Anicteric. CARDIOVASCULAR: Normal S1, S2. Without murmurs. ABDOMEN: Soft, nontender, nondistended. : Benitez has been removed. EXTREMITIES: No edema. SKIN: Dry. PSYCHIATRIC: Flat affect. NEUROLOGIC: Awake. Moves all extremities. LABS: Reviewed. MEDICATIONS: Reviewed. ASSESSMENT AND PLAN: An 87-year-old man. 1. Restless legs syndrome. 2. Sundowning. 3. Insomnia. 4. Hematuria. 5. Radiation cystitis. 6. History of prostate cancer. 7. Normocytic anemia. 8. Constipation. 9. Acute kidney injury. 10. Hypertension. 11. Diabetes mellitus, type 2. 12. Overweight state. PLAN 1. Will start him on Requip for restless legs syndrome. 2. Benitez has been removed. Will continue monitor for any further hematuria. 3. Avoid anticoagulants. 4. Consider Ambien for insomnia. 5. Physical therapy. 6. Discharge planning. Job#: [id number] CQ
--- NOTE | 2017-12-29 21:20 | Progress Note ---
DATE: December 28, 2017 TIME: 10:00 a.m. OVERNIGHT: No events. REVIEW OF SYSTEMS: Unreliable. PHYSICAL EXAMINATION: VITAL SIGNS: Reviewed. GENERAL APPEARANCE: Tired-appearing man resting in bed. HEENT: Anicteric. CARDIOVASCULAR: Normal S1 and S2. LUNGS: Moderate breath sounds. ABDOMEN: Soft, nontender. : Benitez is absent. EXTREMITIES: No edema. SKIN: Dry. PSYCHIATRIC: Flat affect, confused appearing. LABS: Reviewed. MEDICATIONS: Reviewed. ASSESSMENT: This is an 87-year-old man. 1. Restless leg syndrome. 2. Insomnia. 3. Hematuria. 4. Radiation cystitis. 5. History of prostate cancer. 6. Normocytic anemia. 7. Constipation. 8. Acute kidney injury. 9. Hypertension. 10. Diabetes mellitus type 2. 11. Overweight state. 12. Sundowning. PLAN: 1. Monitor closely. 2. Continue medications for sundowning, and lorazepam re-initiation per his . 3. Continue physical therapy. 4. No further hematuria at this time. 5. Discharge planning, possible discharge tomorrow. Job#: [id number]
--- NOTE | 2017-12-29 21:23 | Progress Note ---
DATE: December 29, 2017 TIME: 3:00 p.m. Overnight, patient had a cardiac arrest on the floor. Cheryle dhaliwal was called. Patient intubated, moved to the ICU. REVIEW OF SYSTEMS: Unobtainable. PHYSICAL EXAMINATION VITAL SIGNS: Reviewed. GENERAL: A tired-appearing man, resting in bed. HEENT: ET tube in place. CARDIOVASCULAR: Normal S1, S2. LUNGS: He has moderate breath sounds, reduced at the base. ABDOMEN: Soft, nontender. : Benitez absent. EXTREMITIES: No edema. SKIN: Dry. PSYCHIATRIC: Unable to assess. NEUROLOGIC: Not interactive. LABS: Reviewed. MEDICATIONS: Reviewed. ASSESSMENT AND PLAN: An 87-year-old man. 1. Hematuria. 2. Radiation cystitis. 3. History of prostate cancer. 4. Normocytic anemia. 5. Constipation. 6. Acute kidney injury. 7. Hypertension. 8. Diabetes mellitus, type 2. 9. Overweight state. 10. Restless legs syndrome. 11. cardiac arrest . 12. Insomnia. 13. Sundowning. PLAN 1. Continue vent support. 2. Follow up labs. 3. Imaging pending. 4. Avoid anticoagulants. This could lead to recurrence of hematuria. 5. Consider condom catheter. Will avoid Benitez catheter if not needed. 6. Monitor closely in the ICU. CRITICAL CARE TIME: More than 35 minutes. Job#: [id number] CQ
[2017-12-29] MEDS ORDERED: NS IV SCH (22:00)
[2017-12-29] MEDS ORDERED: AZTREONAM IV SCH (22:00)
[2017-12-29] MEDS: PIPERACILLIN/TAZO 2.25 GM 50 ML IV SCH (23:57)
[2017-12-30] VITALS (94 sets, daily range): BP systolic 92–140; BP diastolic 50–93
[2017-12-30] MEDS: IPRATROPIUM BROMIDE 0.02% 2.5 ML NEB NEB SCH ×4 (01:25→20:35)
[2017-12-30] MEDS: PROPOFOL IV EMULSION 10MG/ML 100 ML IV SCH ×2 (01:42→07:48)
[2017-12-30] MEDS ORDERED: PROPOFOL IV EMULSION 10 MG/ML 50 ML VIAL IV SCH (01:45)
[2017-12-30] MEDS: AZTREONAM (AZACTAM) 0.5 GM in SODIUM CHLORIDE 0.9% 50ML 50 ML IV SCH ×3 (05:00→22:00)
[2017-12-30 05:03] LABS: BASOPHILS % 0.3 % (0.0-1.0); EOSINOPHILS # (AUTO) 0.2 (0.0-0.4); EOSINOPHILS % 2.2 % (0.0-6.0); HEMATOCRIT 27.2 % (38.2-49.6); HEMOGLOBIN 9.2 g/dL (14.0-18.0); LYMPHOCYTES # (AUTO) 1.5 (1.0-3.2); LYMPHOCYTES % 14.5 % (18.0-39.1); MEAN CORPUSCULAR HGB CONC 33.8 g/dL (31-35); MEAN CORPUSCULAR VOLUME 97.5 fL (81-99); MONOCYTES # (AUTO) 1.2 (0.2-0.8); MONOCYTES % 11.5 % (4.4-11.3); NEUTROPHILS # (AUTO) 7.5 (2.1-6.9); NEUTROPHILS % 70.9 % (38.7-80.0); PLATELET COUNT 308 x10e3/uL (140-360); RED BLOOD COUNT 2.79 x10e6/uL (4.3-5.7); RED CELL DISTRIBUTION WIDTH 13.6 % (11.7-14.4)
[2017-12-30 05:41] LABS: CREATINE KINASE MB 5.1 ng/mL (0-5.0)
[2017-12-30 05:57] LABS: ANION GAP 12.6 mmol/L (8-16); CALCIUM 8.8 mg/dL (8.4-10.2); CREATININE, SERUM 1.64 mg/dL (0.72-1.25); POTASSIUM 3.6 mmol/L (3.5-5.1)
[2017-12-30 06:02] LABS: ABG HCO3 23 mmol/L (23-28); ABG PCO2 39 mmHg (41-51); ABG PH 7.37 (7.31-7.41); ABG PO2 59 mmHg (80-105)
[2017-12-30] MEDS: SODIUM CHLORIDE 0.9% 1000ML 1,000 ML IV SCH ×2 (06:10→15:47)
[2017-12-30] MEDS: PIPERACILLIN/TAZO 2.25 GM 50 ML IV SCH ×3 (06:13→22:00)
--- NOTE | 2017-12-30 06:29 | Diagnostic Imaging Report ---
EXAMINATION: CHEST SINGLE (PORTABLE) INDICATION: Respiratory failure COMPARISON: 12/29/2017 FINDINGS: AP view TUBES and LINES: Endotracheal tube in place with tip terminating 6.2 cm above candy. LUNGS: Lungs are well inflated. Interval improvement in bibasilar predominantly right consolidation. There is mild prominence of the central pulmonary vasculature, consistent with pulmonary venous congestion. PLEURA: No significant pleural effusion or pneumothorax. HEART AND MEDIASTINUM: Cardiac size is moderately enlarged. The aorta is ectatic with atherosclerotic calcifications. BONES AND SOFT TISSUES: No acute osseous lesion. Soft tissues are unremarkable. UPPER ABDOMEN: No free air under the diaphragm. IMPRESSION: 1. Improving lower lung field consolidations, representing atelectasis and/or pneumonia. 2. Stable cardiomediastinal silhouette on this AP view. Signed by: Dr. Jose Juan George M.D. on 12/30/2017 6:26 AM
--- NOTE | 2017-12-30 07:23 | Progress Note ---
DATE: December 30, 2017 TIME: 6:09 a.m. SUBJECTIVE: Overnight, no change. Remains intubated. REVIEW OF SYSTEMS: Unobtainable. PHYSICAL EXAMINATION VITAL SIGNS: Reviewed. GENERAL: A tired-appearing man, resting in bed. HEENT: ET tube in place. CARDIOVASCULAR: Normal S1, S2. LUNGS: Moderate breath sounds. ABDOMEN: Soft, nontender, nondistended. : No Benitez in place. EXTREMITIES: SCDs. SKIN: Dry. PSYCHIATRIC: Unable to assess. NEUROLOGIC: Sedated. LABS: Reviewed. MEDICATIONS: Reviewed. ASSESSMENT: An 87-year-old man. 1. Acute respiratory failure. 2. Cardiopulmonary arrest. 3. Hematuria. 4. Right lung healthcare associated pneumonia. 5. Hematuria. 6. Radiation cystitis. 7. History of prostate cancer. 8. Normocytic anemia. 9. Acute kidney injury. 10. Diabetes mellitus type 2. Hemoglobin A1c is 6.7, LDL 107. 11. Restless legs syndrome. 12. Sundowning. 13. Urinary tract infection. PLAN 1. Continue vent support. 2. Patient is currently on 50% FiO2. 3. Continue to follow renal function when stable. 4. If the patient needs Benitez, will need to contact urology. 5. Cardiac enzymes are negative. 6. Leukocytosis has resolved on IV aztreonam and 1 dose of vancomycin. The patient has also received Zosyn. 7. Cultures remain negative today. 8. Continue supportive care in the ICU. CRITICAL CARE TIME: More than 35 minutes. Job#: [id number]
[2017-12-30] MEDS: INSULIN REGULAR, HUMAN 100 UNIT/1 ML 3ML VIAL SQ SCH ×4 (07:30→21:00)
[2017-12-30] MEDS: FAMOTIDINE 20 MG TAB PO SCH ×2 (07:30→16:30)
[2017-12-30] MEDS: HYDRALAZINE HCL 10 MG TAB PO SCH ×3 (08:16→21:00)
[2017-12-30] MEDS: TOLTERODINE TARTRATE 4 MG CAPCR PO SCH (08:17)
[2017-12-30] MEDS: BISACODYL 5 MG TAB EC PO SCH (08:17)
[2017-12-30] MEDS: OXYBUTYNIN CHLORIDE 5 MG TAB PO SCH ×2 (08:17→16:35)
[2017-12-30] MEDS: LORAZEPAM 0.5 MG TAB PO SCH ×3 (08:17→21:00)
[2017-12-30] MEDS: SENNA-S TABLET PO SCH ×2 (08:17→16:35)
[2017-12-30] MEDS: NIFEDIPINE CR 30 MG TAB PO SCH (08:17)
[2017-12-30] MEDS: DUTASTERIDE 0.5 MG CAP PO SCH (08:17)
[2017-12-30] MEDS: POLYETHYLENE GLYCOL 3350 17 GM PACK PO SCH (08:17)
[2017-12-30] MEDS: DOCUSATE SODIUM 100 MG CAP PO SCH ×2 (08:17→16:35)
[2017-12-30] MEDS: ALLOPURINOL 300 MG TAB PO SCH (08:18)
[2017-12-30] MEDS: ROPINIROLE HCL 1 MG TAB PO SCH (08:18)
[2017-12-30 08:57] LABS: ABG HCO3 25 mmol/L (23-28); ABG PCO2 40 mmHg (41-51); ABG PH 7.39 (7.31-7.41); ABG PO2 164 mmHg (80-105)
[2017-12-30 12:40] LABS: CREATINE KINASE MB 3.3 ng/mL (0-5.0)
[2017-12-30 16:50] LABS: ABG HCO3 20 mmol/L (23-28); ABG PCO2 29 mmHg (41-51); ABG PH 7.44 (7.31-7.41); ABG PO2 86 mmHg (80-105)
[2017-12-30] MEDS ORDERED: ACETAMINOPHEN 1000 MG/100 ML IV PRN (20:45)
[2017-12-30] MEDS ORDERED: VANCOMYCIN 1GM/NS 250 ML 250 ML IV ONE (22:30)
[2017-12-30 23:34] LABS: CREATINE KINASE MB 1.7 ng/mL (0-5.0)
[2017-12-31] VITALS (50 sets, daily range): BP systolic 76–151; BP diastolic 49–85
[2017-12-31] MEDS: SODIUM CHLORIDE 0.9% 1000ML 1,000 ML IV SCH ×2 (00:38→08:53)
[2017-12-31] MEDS: IPRATROPIUM BROMIDE 0.02% 2.5 ML NEB NEB SCH ×4 (02:20→19:55)
[2017-12-31 04:56] LABS: BASOPHILS % 0.3 % (0.0-1.0); EOSINOPHILS # (AUTO) 0.1 (0.0-0.4); EOSINOPHILS % 0.9 % (0.0-6.0); HEMATOCRIT 26.1 % (38.2-49.6); HEMOGLOBIN 8.8 g/dL (14.0-18.0); LYMPHOCYTES # (AUTO) 1.5 (1.0-3.2); LYMPHOCYTES % 12.8 % (18.0-39.1); MEAN CORPUSCULAR HEMOGLOBIN 33.2 pg (28-32); MEAN CORPUSCULAR HGB CONC 33.7 g/dL (31-35); MEAN CORPUSCULAR VOLUME 98.5 fL (81-99); MONOCYTES # (AUTO) 1.6 (0.2-0.8); MONOCYTES % 13.8 % (4.4-11.3); NEUTROPHILS # (AUTO) 8.2 (2.1-6.9); NEUTROPHILS % 71.6 % (38.7-80.0); PLATELET COUNT 313 x10e3/uL (140-360); RED BLOOD COUNT 2.65 x10e6/uL (4.3-5.7)
[2017-12-31 05:24] LABS: ANION GAP 13.6 mmol/L (8-16); CALCIUM 8.2 mg/dL (8.4-10.2); CREATININE, SERUM 1.67 mg/dL (0.72-1.25); POTASSIUM 3.6 mmol/L (3.5-5.1)
[2017-12-31] MEDS: AZTREONAM (AZACTAM) 0.5 GM in SODIUM CHLORIDE 0.9% 50ML 50 ML IV SCH ×3 (06:00→21:11)
[2017-12-31] MEDS: PIPERACILLIN/TAZO 2.25 GM 50 ML IV SCH ×3 (06:00→21:11)
[2017-12-31] MEDS: INSULIN REGULAR, HUMAN 100 UNIT/1 ML 3ML VIAL SQ SCH ×4 (07:30→20:59)
[2017-12-31] MEDS: LORAZEPAM 0.5 MG TAB PO SCH ×3 (08:26→20:43)
[2017-12-31] MEDS: TOLTERODINE TARTRATE 4 MG CAPCR PO SCH (08:26)
[2017-12-31] MEDS: DOCUSATE SODIUM 100 MG CAP PO SCH ×2 (08:26→17:06)
[2017-12-31] MEDS: OXYBUTYNIN CHLORIDE 5 MG TAB PO SCH ×2 (08:26→17:06)
[2017-12-31] MEDS: POLYETHYLENE GLYCOL 3350 17 GM PACK PO SCH (08:27)
[2017-12-31] MEDS: FAMOTIDINE 20 MG TAB PO SCH ×2 (08:27→16:45)
[2017-12-31] MEDS: ROPINIROLE HCL 1 MG TAB PO SCH (08:27)
[2017-12-31] MEDS: DUTASTERIDE 0.5 MG CAP PO SCH (08:27)
[2017-12-31] MEDS: NIFEDIPINE CR 30 MG TAB PO SCH (08:27)
[2017-12-31] MEDS: ALLOPURINOL 300 MG TAB PO SCH (08:28)
[2017-12-31] MEDS: SENNA-S TABLET PO SCH ×2 (08:59→17:06)
[2017-12-31] MEDS: BISACODYL 5 MG TAB EC PO SCH (08:59)
[2017-12-31] MEDS: HYDRALAZINE HCL 10 MG TAB PO SCH ×3 (09:00→20:43)
[2017-12-31] MEDS ORDERED: POTASSIUM CHLORIDE 20 MEQ TAB CR PO STA (10:32)
--- NOTE | 2017-12-31 13:11 | Diagnostic Imaging Report ---
Examination: MRI BRAIN WITHOUT CONTRAST History: Left-sided weakness. Comparison studies: Head CT performed March 30, 2018 Technique: Sagittal T2; axial DWI, FLAIR, GRE or SWI, T1, Coronal FLAIR. Intravenous contrast: None Findings: Scalp: No abnormal signal. No masses. Bone marrow: Normal in signal intensity. Brain volume: Mild volume loss. Ventricles: Ex vacuo dilatation. No hydrocephalus. Extra-axial spaces: No abnormalities. Parenchyma: There are patchy and confluent areas of T2/FLAIR hyperintensity in the periventricular and subcortical white matter, nonspecific. No masses, hemorrhage, or acute vascular insults. Suprasellar and sellar region: No abnormalities. Craniocervical junction: No abnormalities. The foramen magnum is patent. No Chiari malformations. Vessels: Normal flow-voids in the arteries and sinuses. Additional findings:Opacified right mastoid air cells. Mild T2 signal in the left mastoid air cells. Partially visualized grade I anterolisthesis of C3 on C4. IMPRESSION: 1. No acute intracranial abnormality, specifically, no acute infarct. 2. Unchanged mild chronic microvascular ischemic change. 3. Unchanged moderate volume loss. Signed by: Dr. Kesha Brock M.D. on 12/31/2017 1:07 PM
[2017-12-31] MEDS ORDERED: SUCCINYLCHOLINE CHLORIDE 20 MG/ML 10ML VIAL ONE (14:31)
[2017-12-31] MEDS ORDERED: SODIUM CHLORIDE FLUSH 10 ML SYR ONE (14:31)
[2018-01-01] VITALS (17 sets, daily range): BP systolic 101–159; BP diastolic 56–91
[2018-01-01] MEDS: IPRATROPIUM BROMIDE 0.02% 2.5 ML NEB NEB SCH ×3 (02:00→13:48)
[2018-01-01 04:46] LABS: HEMATOCRIT 28.6 % (38.2-49.6); HEMOGLOBIN 9.5 g/dL (14.0-18.0); MEAN CORPUSCULAR HEMOGLOBIN 32.3 pg (28-32); MEAN CORPUSCULAR HGB CONC 33.2 g/dL (31-35); MEAN CORPUSCULAR VOLUME 97.3 fL (81-99); PLATELET COUNT 345 x10e3/uL (140-360); RED BLOOD COUNT 2.94 x10e6/uL (4.3-5.7); RED CELL DISTRIBUTION WIDTH 13.6 % (11.7-14.4)
[2018-01-01 05:14] LABS: ANION GAP 14.6 mmol/L (8-16); CALCIUM 8.8 mg/dL (8.4-10.2); CREATININE, SERUM 1.37 mg/dL (0.72-1.25); POTASSIUM 3.6 mmol/L (3.5-5.1)
[2018-01-01] MEDS: PIPERACILLIN/TAZO 2.25 GM 50 ML IV SCH ×3 (05:48→22:11)
[2018-01-01] MEDS: AZTREONAM (AZACTAM) 0.5 GM in SODIUM CHLORIDE 0.9% 50ML 50 ML IV SCH ×3 (05:48→22:00)
[2018-01-01] MEDS: INSULIN REGULAR, HUMAN 100 UNIT/1 ML 3ML VIAL SQ SCH ×4 (07:30→21:44)
--- NOTE | 2018-01-01 08:12 | Progress Note ---
DATE: December 31, 2017 TIME: 7:15 a.m. OVERNIGHT: The patient was extubated yesterday. He had fever overnight. Chest x-ray shows improvement. REVIEW OF SYSTEMS: Unobtainable. PHYSICAL EXAMINATION VITAL SIGNS: Reviewed. GENERAL: A tired-appearing man, resting in bed. HEENT: Pupils are responsive to light. No oral lesions. CARDIOVASCULAR: Normal S1, S2. LUNGS: Moderate breath sounds. ABDOMEN: Soft, nontender, nondistended. EXTREMITIES: SCDs bilaterally. SKIN: Dry. PSYCHIATRIC: Flat affect. NEUROLOGIC: Awake, but not interactive. LABS: Reviewed. MEDICATIONS: Reviewed. ASSESSMENT: This is an 87-year-old man. 1. Acute respiratory failure. 2. Cardiopulmonary arrest. 3. Hematuria. 4. Right lung healthcare associated pneumonia. 5. Radiation cystitis. 6. History of prostate cancer. 7. Normocytic anemia. 8. Acute kidney injury. 9. Diabetes mellitus, type 2. Hemoglobin A1c is 6.7. 10. Restless legs syndrome. 11. . 12. Urinary tract infection. PLAN 1. Continue supportive care. 2. He was extubated yesterday. Continue oxygen support via nasal cannula. 3. Physical therapy. 4. Continue antibiotics. 5. Keep in the ICU today. Monitor closely. 6. Critical care time more than 35 minutes. Job#: [id number]
[2018-01-01] MEDS: LORAZEPAM 0.5 MG TAB PO SCH ×3 (08:16→20:36)
[2018-01-01] MEDS: FAMOTIDINE 20 MG TAB PO SCH ×2 (08:16→16:11)
[2018-01-01] MEDS: DOCUSATE SODIUM 100 MG CAP PO SCH ×2 (08:16→16:13)
[2018-01-01] MEDS: DUTASTERIDE 0.5 MG CAP PO SCH (08:16)
[2018-01-01] MEDS: TOLTERODINE TARTRATE 4 MG CAPCR PO SCH (08:16)
[2018-01-01] MEDS: HYDRALAZINE HCL 10 MG TAB PO SCH ×3 (08:16→20:36)
[2018-01-01] MEDS: SENNA-S TABLET PO SCH ×2 (08:17→16:11)
[2018-01-01] MEDS: ROPINIROLE HCL 1 MG TAB PO SCH (08:17)
[2018-01-01] MEDS: POLYETHYLENE GLYCOL 3350 17 GM PACK PO SCH (08:17)
[2018-01-01] MEDS: BISACODYL 5 MG TAB EC PO SCH (08:17)
[2018-01-01] MEDS: ALLOPURINOL 300 MG TAB PO SCH (08:17)
[2018-01-01] MEDS: NIFEDIPINE CR 30 MG TAB PO SCH (08:17)
[2018-01-01] MEDS: OXYBUTYNIN CHLORIDE 5 MG TAB PO SCH ×2 (08:17→16:13)
--- NOTE | 2018-01-01 08:34 | Progress Note ---
DATE: January 01, 2018 TIME: 7:47 a.m. OVERNIGHT: No events. Patient had physical therapy yesterday. REVIEW OF SYSTEMS: Unreliable at this time. PHYSICAL EXAMINATION: GENERAL APPEARANCE: Tired-appearing man resting in bed. HEENT: Anicteric. CARDIOVASCULAR: Normal S1 and S2. LUNGS: Moderate breath sounds. ABDOMEN: Soft, nontender. EXTREMITIES: No edema or calf tenderness. : No Benitez. EXTREMITIES: SCDs. SKIN: Dry. PSYCHIATRIC: Flat affect. NEUROLOGICAL: Awake. Moving extremities, not fully interactive. Still having some cognitive deficits. LABS: Reviewed. MEDICATIONS: Reviewed. ASSESSMENT: An 87-year-old man. 1. Acute respiratory failure. 2. Cardiopulmonary arrest. 3. Hematuria. 4. Right lung healthcare-associated pneumonia. 5. Radiation cystitis. 6. History of prostate cancer. 7. Normocytic anemia. 8. Acute kidney injury. 9. Diabetes mellitus type 2. Hemoglobin A1c 6.7, LDL 107. 10. Restless leg syndrome. 11. ing. 12. Urinary tract infection. PLAN: 1. Continue supportive care. 2. Continue oxygen support. 3. Transition to the medical floor with . 4. Continue physical therapy. 5. Continue antibiotics. 6. Discharge planning. 7. No leukocytosis at this time. Renal function continues to improve. Job#: [id number]
[2018-01-01] MEDS ORDERED: POTASSIUM CHLORIDE 20 MEQ TAB CR PO NR (12:00)
[2018-01-01] MEDS ORDERED: SODIUM CHLORIDE 0.9% 250ML 250 ML ONE (21:01)
--- NOTE | 2018-01-01 21:44 | Diagnostic Imaging Report ---
EXAMINATION: CHEST 2 VIEWS INDICATION: Pneumonia COMPARISON: 12/30/2017 FINDINGS: TUBES and LINES: Endotracheal tube has been removed. LUNGS: Lungs are not well inflated. Persistent, relatively unchanged predominantly right lower lobe airspace disease with air bronchogram. There is mild prominence of the central pulmonary vasculature, consistent with pulmonary venous congestion. PLEURA: No pleural effusion or pneumothorax. HEART AND MEDIASTINUM: Cardiac size is mildly enlarged. The aorta is ectatic with atherosclerotic calcifications. BONES AND SOFT TISSUES: No acute osseous lesion. Soft tissues are unremarkable. UPPER ABDOMEN: No free air under the diaphragm. IMPRESSION: Stable confluence predominantly involving the right lower lobe suggestive of persistent infection. Signed by: Dr. Jose Juan George M.D. on 01/01/2018 9:41 PM
[2018-01-02] VITALS: BP 127/68
[2018-01-02 02:30] VITALS: BP 149/66
[2018-01-02 03:30] VITALS: BP 139/89
[2018-01-02 04:30] VITALS: BP 106/48
[2018-01-02] MEDS: PIPERACILLIN/TAZO 2.25 GM 50 ML IV SCH (05:30)
[2018-01-02 06:00] VITALS: BP 138/68
[2018-01-02] MEDS: AZTREONAM (AZACTAM) 0.5 GM in SODIUM CHLORIDE 0.9% 50ML 50 ML IV SCH (06:04)
[2018-01-02] MEDS: INSULIN REGULAR, HUMAN 100 UNIT/1 ML 3ML VIAL SQ SCH (07:30)
[2018-01-02 08:00] VITALS: BP 171/72
[2018-01-02] MEDS: POLYETHYLENE GLYCOL 3350 17 GM PACK PO SCH (09:00)
[2018-01-02] MEDS: FAMOTIDINE 20 MG TAB PO SCH (09:02)
[2018-01-02] MEDS: TOLTERODINE TARTRATE 4 MG CAPCR PO SCH (09:03)
[2018-01-02] MEDS: NIFEDIPINE CR 30 MG TAB PO SCH (09:03)
[2018-01-02] MEDS: DUTASTERIDE 0.5 MG CAP PO SCH (09:03)
[2018-01-02] MEDS: LORAZEPAM 0.5 MG TAB PO SCH (09:03)
[2018-01-02] MEDS: BISACODYL 5 MG TAB EC PO SCH (09:03)
[2018-01-02] MEDS: ROPINIROLE HCL 1 MG TAB PO SCH (09:03)
[2018-01-02] MEDS: DOCUSATE SODIUM 100 MG CAP PO SCH (09:03)
[2018-01-02] MEDS: OXYBUTYNIN CHLORIDE 5 MG TAB PO SCH (09:03)
[2018-01-02] MEDS: HYDRALAZINE HCL 10 MG TAB PO SCH (09:03)
[2018-01-02] MEDS: ALLOPURINOL 300 MG TAB PO SCH (09:04)
[2018-01-02] MEDS: SENNA-S TABLET PO SCH (09:04)
== END 2018-01-02 11:44 | DRG 698 ==
LOC: ER 03:59 → ERHOLD 06:22 → MED/SURG2 07:14 → ICU 12-29 13:57 → IMCU 01-01 14:43
PROVIDERS: ADMIT Internal Medicine; ATTEND Internal Medicine
PROC: 0BH17EZ Insertion of Endotracheal Airway into Trachea, Via Natural or Artificial Opening (ICD-10-PCS; principal; 2017-12-29)
PROC: 5A1935Z Respiratory Ventilation, Less than 24 Consecutive Hours (ICD-10-PCS; 2017-12-29)
DX: N30.41 Irradiation cystitis with hematuria (principal); I46.9 Cardiac arrest, cause unspecified; J18.9 Pneumonia, unspecified organism; J96.01 Acute respiratory failure with hypoxia; J69.0 Pneumonitis due to inhalation of food and vomit; N17.9 Acute kidney failure, unspecified; F05 Delirium due to known physiological condition; E87.2 Acidosis; R31.0 Gross hematuria; G25.81 Restless legs syndrome; Z85.46 Personal history of malignant neoplasm of prostate; D64.9 Anemia, unspecified; Z79.891 Long term (current) use of opiate analgesic; R49.0 Dysphonia; E66.9 Obesity, unspecified; Z68.26 Body mass index [BMI] 26.0-26.9, adult; K59.00 Constipation, unspecified; N40.1 Benign prostatic hyperplasia with lower urinary tract symptoms; G47.00 Insomnia, unspecified; N13.9 Obstructive and reflux uropathy, unspecified; R33.9 Retention of urine, unspecified; E11.22 Type 2 diabetes mellitus with diabetic chronic kidney disease; I12.9 Hypertensive chronic kidney disease with stage 1 through stage 4 chronic kidney disease, or unspecified chronic kidney disease; N18.9 Chronic kidney disease, unspecified; Z79.4 Long term (current) use of insulin
CPT/HCPCS: 31500; 36415; 36600; 51703; 70450; 70551; 71045; 71046; 71250; 76770; 80048; 80053; 80061; 81001; 82550; 82553; 82805; 82948; 83036; 83880; 84484; 85007; 85014; 85018; 85025; 85027; 85610; 85730; 87040; 87070; 87086; 87205; 92950; 93005; 93306; 94002; 94003; 94640; 96360; 96361; 97139; 99284; J0330; J1650; J1956; J2270; J2405; J2543; J3370; J7030; J7050

== ENCOUNTER 2018-02-28 08:09 | Inpatient (IN) | payer MEDICARE ==
[~2018-02-28] VITALS: Ht 188 cm; Wt 89.9 kg
[~2018-02-28 08:09] MED LIST changes: +ALLOPURINOL300 MG PO; +AVODART0.5 MG PO; +COLACE100 M1 PO; +DETROL LA4 MG PO; +DULCOLAX5 MG PO; +FAMOTIDINE20 MG PO; +FUROSEMIDE20 MG PO; +HYDRALAZINE HCL10 MG PO; +LORAZEPAM0.5 MG PO; +MIRALAX17 GM; +NIFEDIPINE ER30 M1 PO; +SENNA S TABLET1 EACH PO; +TRADJENTA5 MG PO
[2018-02-28 09:24] LABS: CLARITY,URINE CLOUDY (CLEAR); COLOR,URINE RED (YELLOW); LEUKOCYTE ESTERASE ,URINE 2+ (NEGATIVE); NITRITE,URINE POSITIVE (NEGATIVE); PROTEIN,URINE DIPSTICK 3+ (NEGATIVE)
[2018-02-28 09:25] LABS: BILIRUBIN,URINE NEGATIVE (NEGATIVE); KETONES,URINE 1+ (NEGATIVE); URINE UROBILINOGEN 4 mg/dL (0.2 - 1)
--- NOTE | 2018-02-28 09:25 | Diagnostic Imaging Report ---
EXAM: XR CHEST 1 VIEW DATE: 02/28/2018 8:32 AM INDICATION: Pain COMPARISON: 01/01/2018 radiograph and 12/29/2017 CT, no report available FINDINGS: Lines and Tubes: None Heart and Mediastinum: The heart is mildly enlarged. Mild aortic vascular calcifications are present. Prominence of the mediastinum and right peritracheal soft tissues correspond with confluent vascular structures. Pulmonary arteries dilated. Lungs and Pleura: Patchy basilar opacities. Bones and Soft Tissues: No acute findings. IMPRESSION: 1. Basilar opacities could represent atelectasis or pneumonia. Component of mild edema possible. 2. Dilated pulmonary arteries suggesting pulmonary hypertension. Signed by: Dr. Jose Lee MD on 02/28/2018 9:22 AM
[2018-02-28 09:29] LABS: BACTERIA,URINE FEW /HPF; EPITHELIAL CELLS,URINE FEW /LPF; RBC,URINE >50 /HPF (0-5)
[2018-02-28 09:30] LABS: MUCUS,URINE FEW (RARE)
[2018-02-28 09:36] LABS: BASOPHILS # (AUTO) 0.1 (0.0-0.1); BASOPHILS % 0.8 % (0.0-1.0); EOSINOPHILS # (AUTO) 0.1 (0.0-0.4); EOSINOPHILS % 2.2 % (0.0-6.0); HEMATOCRIT 33.3 % (38.2-49.6); HEMOGLOBIN 11.1 g/dL (14.0-18.0); INR 1.06; LYMPHOCYTES # (AUTO) 1.3 (1.0-3.2); LYMPHOCYTES % 20.7 % (18.0-39.1); MEAN CORPUSCULAR HEMOGLOBIN 31.7 pg (28-32); MEAN CORPUSCULAR HGB CONC 33.3 g/dL (31-35); MEAN CORPUSCULAR VOLUME 95.1 fL (81-99); MONOCYTES # (AUTO) 0.6 (0.2-0.8); MONOCYTES % 9.3 % (4.4-11.3); NEUTROPHILS # (AUTO) 4.3 (2.1-6.9); NEUTROPHILS % 66.5 % (38.7-80.0); PLATELET COUNT 227 x10e3/uL (140-360); PROTHROMBIN TIME 14.8 seconds (11.9-14.5)
[2018-02-28 09:37] LABS: PARTIAL THROMBOPLASTIN TIME 30.3 seconds (23.8-35.5)
[2018-02-28 09:45] LABS: ALBUMIN/GLOBULIN RATIO 1.1 (0.8-2.0); ANION GAP 16.1 mmol/L (8-16); CALCIUM 9.6 mg/dL (8.4-10.2); CREATININE, SERUM 1.92 mg/dL (0.72-1.25); MAGNESIUM 2.9 MG/DL (1.3-2.1); POTASSIUM 4.1 mmol/L (3.5-5.1)
[2018-02-28 09:51] LABS: CREATINE KINASE MB 0.7 ng/mL (0-5.0)
[2018-02-28] MEDS ORDERED: MEROPENEM 1GRAM 1 GM in SODIUM CHLORIDE 0.9% 100 ML 100 ML IV SCH (10:00)
[2018-02-28] MEDS ORDERED: MEROPENEM 1 GM VIAL ONE (10:21)
[2018-02-28] MEDS ORDERED: SODIUM CHLORIDE 0.9% 1000ML 1,000 ML IV ONE (10:30)
[2018-02-28] MEDS ORDERED: DEXTROSE 50% SYRINGE 50 ML IV PRN (10:30)
[2018-02-28] MEDS ORDERED: TRAMADOL HCL 50 MG TAB PO PRN (10:30)
[2018-02-28] MEDS ORDERED: ONDANSETRON HCL INJ 2 MG/ML VIAL IV PRN (10:30)
[2018-02-28] MEDS: MEROPENEM 1 GM VIAL IV SCH ×2 (11:19→22:30)
[2018-02-28 11:40] VITALS: BP 161/72
[2018-02-28] MEDS: INSULIN LISPRO 100 UNIT/1 ML 3ML VIAL SQ SCH ×4 (12:00→21:56)
[2018-02-28 12:30] VITALS: BP 161/72
[2018-02-28] MEDS ORDERED: FINASTERIDE5 MG PO (13:59)
[2018-02-28] MEDS ORDERED: CRESTOR10 MG PO (13:59)
[2018-02-28 16:00] VITALS: BP 162/72
[2018-02-28] MEDS ORDERED: DIPHENHYDRAMINE HCL 25 MG CAP PO PRN (16:15)
[2018-02-28] MEDS ORDERED: DIPHENHYDRAMINE HCL INJ 50 MG/ML VIAL IV PRN (16:15)
[2018-02-28] MEDS: DOCUSATE SODIUM 100 MG CAP PO SCH (17:00)
[2018-02-28] MEDS: SENNA-S TABLET PO SCH (17:00)
[2018-02-28] MEDS ORDERED: LORAZEPAM 0.5 MG TAB PO SCH (17:00)
[2018-02-28] MEDS: BELLADONNA/OPIUM 60 MG SUPP PR PRN (17:34)
[2018-02-28] MEDS: FUROSEMIDE 20 MG TAB PO SCH (17:34)
[2018-02-28] MEDS: HYDRALAZINE HCL 10 MG TAB PO SCH (17:35)
[2018-02-28] MEDS: FAMOTIDINE 20 MG TAB PO SCH (17:36)
[2018-02-28 20:00] VITALS: BP 134/62
[2018-02-28] MEDS: SIMVASTATIN 20 MG TAB PO SCH (21:55)
[2018-02-28] MEDS: LORAZEPAM 0.5 MG TAB PO SCH (21:55)
[2018-03-01] VITALS (8 sets, daily range): BP systolic 133–156; BP diastolic 62–69
[2018-03-01] MEDS: FAMOTIDINE 20 MG TAB PO SCH ×2 (05:44→17:35)
[2018-03-01 06:26] LABS: BASOPHILS % 0.3 % (0.0-1.0); EOSINOPHILS # (AUTO) 0.1 (0.0-0.4); EOSINOPHILS % 1.8 % (0.0-6.0); HEMATOCRIT 29.2 % (38.2-49.6); HEMOGLOBIN 9.5 g/dL (14.0-18.0); LYMPHOCYTES # (AUTO) 2.4 (1.0-3.2); LYMPHOCYTES % 31.1 % (18.0-39.1); MEAN CORPUSCULAR HGB CONC 32.5 g/dL (31-35); MEAN CORPUSCULAR VOLUME 95.4 fL (81-99); MONOCYTES # (AUTO) 0.8 (0.2-0.8); MONOCYTES % 10.8 % (4.4-11.3); NEUTROPHILS # (AUTO) 4.2 (2.1-6.9); NEUTROPHILS % 55.6 % (38.7-80.0); PLATELET COUNT 208 x10e3/uL (140-360); RED BLOOD COUNT 3.06 x10e6/uL (4.3-5.7); RED CELL DISTRIBUTION WIDTH 13.3 % (11.7-14.4)
[2018-03-01 06:43] LABS: ALANINE AMINOTRANSFERASE < 6 IU/L (0-55); ALBUMIN 3.2 g/dL (3.5-5.0); ALKALINE PHOSPHATASE 59 IU/L (40-150); ANION GAP 12.9 mmol/L (8-16); BLOOD UREA NITROGEN 22 mg/dL (7-26); BUN/CREATININE RATIO 15 (6-25); CARBON DIOXIDE 24 mmol/L (22-29); CHLORIDE 103 mmol/L (98-107); EST GLOMERULAR FILTRATION RATE 44 ML/MIN (60-); GLUCOSE 136 mg/dL (74-118); POTASSIUM 3.9 mmol/L (3.5-5.1); SODIUM 136 mmol/L (136-145)
[2018-03-01] MEDS: INSULIN LISPRO 100 UNIT/1 ML 3ML VIAL SQ SCH ×4 (07:30→21:00)
[2018-03-01] MEDS: SENNA-S TABLET PO SCH ×2 (09:00→17:00)
[2018-03-01] MEDS: DOCUSATE SODIUM 100 MG CAP PO SCH ×2 (09:00→17:00)
[2018-03-01] MEDS: BISACODYL 10 MG SUPP PR SCH (09:00)
[2018-03-01] MEDS: FUROSEMIDE 20 MG TAB PO SCH ×2 (09:07→17:36)
[2018-03-01] MEDS: HYDRALAZINE HCL 10 MG TAB PO SCH ×2 (09:07→17:36)
[2018-03-01] MEDS: TOLTERODINE TARTRATE 4 MG CAPCR PO SCH (09:07)
[2018-03-01] MEDS: DUTASTERIDE 0.5 MG CAP PO SCH (09:07)
[2018-03-01] MEDS: LORAZEPAM 0.5 MG TAB PO SCH ×2 (09:07→21:18)
[2018-03-01] MEDS: ALLOPURINOL 300 MG TAB PO SCH (09:08)
[2018-03-01] MEDS: NIFEDIPINE CR 30 MG TAB PO SCH (09:08)
[2018-03-01] MEDS: FINASTERIDE 5 MG TAB PO SCH (09:08)
[2018-03-01] MEDS: BELLADONNA/OPIUM 60 MG SUPP PR PRN (11:00)
[2018-03-01] MEDS: MEROPENEM 1 GM VIAL IV SCH ×2 (11:45→23:40)
[2018-03-01] MEDS: SIMVASTATIN 20 MG TAB PO SCH (21:18)
[2018-03-02] VITALS: BP 138/63
[2018-03-02 04:00] VITALS: BP 124/60
[2018-03-02] MEDS: INSULIN LISPRO 100 UNIT/1 ML 3ML VIAL SQ SCH ×4 (07:30→21:00)
[2018-03-02 07:39] VITALS: BP 131/63
[2018-03-02 09:21] VITALS: BP 131/63
[2018-03-02] MEDS: TOLTERODINE TARTRATE 4 MG CAPCR PO SCH (09:37)
[2018-03-02] MEDS: FAMOTIDINE 20 MG TAB PO SCH ×2 (09:37→16:36)
[2018-03-02] MEDS: DOCUSATE SODIUM 100 MG CAP PO SCH ×2 (09:37→16:37)
[2018-03-02] MEDS: HYDRALAZINE HCL 10 MG TAB PO SCH ×2 (09:37→16:37)
[2018-03-02] MEDS: LORAZEPAM 0.5 MG TAB PO SCH ×2 (09:37→21:05)
[2018-03-02] MEDS: DUTASTERIDE 0.5 MG CAP PO SCH (09:37)
[2018-03-02] MEDS: SENNA-S TABLET PO SCH ×2 (09:38→16:37)
[2018-03-02] MEDS: ALLOPURINOL 300 MG TAB PO SCH (09:38)
[2018-03-02] MEDS: FUROSEMIDE 20 MG TAB PO SCH ×2 (09:38→16:37)
[2018-03-02] MEDS: FINASTERIDE 5 MG TAB PO SCH (09:38)
[2018-03-02] MEDS: NIFEDIPINE CR 30 MG TAB PO SCH (09:38)
[2018-03-02] MEDS: BISACODYL 10 MG SUPP PR SCH (09:48)
[2018-03-02] MEDS: MEROPENEM 1 GM VIAL IV SCH ×2 (12:54→23:37)
[2018-03-02 13:11] VITALS: BP 141/60
[2018-03-02 15:28] LABS: CHOL/HDL RATIO 3.1 (3.9-4.7)
[2018-03-02 20:32] VITALS: BP 128/61
[2018-03-02] MEDS: SIMVASTATIN 20 MG TAB PO SCH (21:05)
[2018-03-03 00:53] VITALS: BP 112/54
[2018-03-03 06:41] VITALS: BP 110/59
[2018-03-03] MEDS: DUTASTERIDE 0.5 MG CAP PO SCH (08:05)
[2018-03-03] MEDS: FAMOTIDINE 20 MG TAB PO SCH ×2 (08:05→17:40)
[2018-03-03] MEDS: DOCUSATE SODIUM 100 MG CAP PO SCH ×2 (08:05→17:40)
[2018-03-03] MEDS: TOLTERODINE TARTRATE 4 MG CAPCR PO SCH (08:05)
[2018-03-03] MEDS: FUROSEMIDE 20 MG TAB PO SCH ×2 (08:05→17:40)
[2018-03-03] MEDS: NIFEDIPINE CR 30 MG TAB PO SCH (08:05)
[2018-03-03] MEDS: LORAZEPAM 0.5 MG TAB PO SCH ×2 (08:05→20:47)
[2018-03-03] MEDS: HYDRALAZINE HCL 10 MG TAB PO SCH ×2 (08:05→17:00)
[2018-03-03] MEDS: SENNA-S TABLET PO SCH ×2 (08:06→17:40)
[2018-03-03] MEDS: ALLOPURINOL 300 MG TAB PO SCH (08:06)
[2018-03-03] MEDS: BISACODYL 10 MG SUPP PR SCH (08:06)
[2018-03-03] MEDS: FINASTERIDE 5 MG TAB PO SCH (08:06)
[2018-03-03] MEDS: INSULIN LISPRO 100 UNIT/1 ML 3ML VIAL SQ SCH ×4 (08:39→20:50)
[2018-03-03 11:47] VITALS: BP 107/57
[2018-03-03] MEDS: MEROPENEM 1 GM VIAL IV SCH ×2 (12:36→23:52)
[2018-03-03 16:38] VITALS: BP 141/60
[2018-03-03 20:18] VITALS: BP 142/60
[2018-03-03] MEDS: SIMVASTATIN 20 MG TAB PO SCH (20:47)
[2018-03-04 00:35] VITALS: BP 129/59
[2018-03-04 05:59] VITALS: BP 120/56
[2018-03-04] MEDS ORDERED: LEVAQUIN500 MG PO (07:33)
[2018-03-04 08:00] VITALS: BP 108/55
[2018-03-04] MEDS: DOCUSATE SODIUM 100 MG CAP PO SCH (09:49)
[2018-03-04] MEDS: LORAZEPAM 0.5 MG TAB PO SCH (09:49)
[2018-03-04] MEDS: SENNA-S TABLET PO SCH (09:49)
[2018-03-04] MEDS: ALLOPURINOL 300 MG TAB PO SCH (09:49)
[2018-03-04] MEDS: TOLTERODINE TARTRATE 4 MG CAPCR PO SCH (09:49)
[2018-03-04] MEDS: FAMOTIDINE 20 MG TAB PO SCH (09:49)
[2018-03-04] MEDS: DUTASTERIDE 0.5 MG CAP PO SCH (09:49)
[2018-03-04] MEDS: HYDRALAZINE HCL 10 MG TAB PO SCH (09:49)
[2018-03-04] MEDS: FINASTERIDE 5 MG TAB PO SCH (09:49)
[2018-03-04] MEDS: FUROSEMIDE 20 MG TAB PO SCH (09:49)
[2018-03-04] MEDS: NIFEDIPINE CR 30 MG TAB PO SCH (09:49)
[2018-03-04 10:00] VITALS: BP 108/55
== END 2018-03-04 10:46 | disposition home or self-care (01) | DRG 699 ==
LOC: ER 08:15 → ERHOLD 09:38 → MED/SURG2 11:40
PROVIDERS: ADMIT Internal Medicine; ATTEND Internal Medicine
DX: N30.41 Irradiation cystitis with hematuria (principal); N17.9 Acute kidney failure, unspecified; D64.9 Anemia, unspecified; E83.41 Hypermagnesemia; N40.0 Benign prostatic hyperplasia without lower urinary tract symptoms; N32.89 Other specified disorders of bladder; I12.9 Hypertensive chronic kidney disease with stage 1 through stage 4 chronic kidney disease, or unspecified chronic kidney disease; E11.22 Type 2 diabetes mellitus with diabetic chronic kidney disease; N18.3 Chronic kidney disease, stage 3 (moderate); K59.00 Constipation, unspecified; E78.5 Hyperlipidemia, unspecified; I45.10 Unspecified right bundle-branch block; Z85.46 Personal history of malignant neoplasm of prostate; E66.3 Overweight; Z68.25 Body mass index [BMI] 25.0-25.9, adult
CPT/HCPCS: 36415; 51700; 71045; 80053; 80061; 81001; 82550; 82553; 82948; 83036; 83735; 84484; 85025; 85610; 85730; 86850; 86870; 86880; 86900; 86905; 87086; 93005; 99001; 99284; J2185; J7030

== ENCOUNTER 2018-04-12 08:42 | Emergency (ER) | payer MEDICARE ==
[~2018-04-12] VITALS: Ht 188 cm; Wt 90.3 kg
[~2018-04-12 08:42] MED LIST changes: +CRESTOR10 MG PO; +FINASTERIDE5 MG PO; +LEVAQUIN500 MG PO
--- NOTE | 2018-04-12 09:42 | Diagnostic Imaging Report ---
EXAMINATION: CHEST 2 VIEWS INDICATION: ^SOB ^[id number] ^[id number] COMPARISON: 02/28/2018 FINDINGS: PA and lateral views TUBES and LINES: None. LUNGS: Lungs are well inflated. Mild left basilar hazy opacification. PLEURA: No pleural effusion or pneumothorax. HEART AND MEDIASTINUM: The cardiomediastinal silhouette is unremarkable. BONES AND SOFT TISSUES: No acute osseous lesion. Degenerative changes of thoracic spine and right glenohumeral joint. Soft tissues are unremarkable. UPPER ABDOMEN: No free air under the diaphragm. IMPRESSION: Mild left basilar hazy opacification, likely subsegmental atelectasis. Otherwise, unremarkable. Signed by: Dr. Ld Alarcon MD on 04/12/2018 9:39 AM
--- NOTE | 2018-04-12 09:59 | NUR ---
RT notified of ordered breathing treatment.
[2018-04-12] MEDS ORDERED: ALBUTEROL/IPRATROPIUM 3 ML NEB NEB ONE (10:00)
[2018-04-12 10:33] LABS: BASOPHILS % 0.5 % (0.0-1.0); EOSINOPHILS # (AUTO) 0.2 (0.0-0.4); EOSINOPHILS % 2.6 % (0.0-6.0); HEMATOCRIT 34.1 % (38.2-49.6); HEMOGLOBIN 11.1 g/dL (14.0-18.0); LYMPHOCYTES # (AUTO) 1.8 (1.0-3.2); LYMPHOCYTES % 23.9 % (18.0-39.1); MEAN CORPUSCULAR HEMOGLOBIN 29.9 pg (28-32); MEAN CORPUSCULAR HGB CONC 32.6 g/dL (31-35); MEAN CORPUSCULAR VOLUME 91.9 fL (81-99); MONOCYTES # (AUTO) 0.6 (0.2-0.8); MONOCYTES % 8.2 % (4.4-11.3); NEUTROPHILS # (AUTO) 4.8 (2.1-6.9); NEUTROPHILS % 64.5 % (38.7-80.0); PLATELET COUNT 247 x10e3/uL (140-360); RED BLOOD COUNT 3.71 x10e6/uL (4.3-5.7); RED CELL DISTRIBUTION WIDTH 13.4 % (11.7-14.4)
[2018-04-12 10:58] LABS: ANION GAP 14.4 mmol/L (8-16); CALCIUM 9.4 mg/dL (8.4-10.2); CREATININE, SERUM 1.92 mg/dL (0.72-1.25); POTASSIUM 4.4 mmol/L (3.5-5.1)
[2018-04-12 11:06] LABS: CREATINE KINASE MB 1.6 ng/mL (0-5.0)
[2018-04-12 11:35] VITALS: BP 133/65
== END 2018-04-12 11:55 | disposition home or self-care (01) ==
LOC: ER 08:42
DX: R05 Cough (principal); R06.00 Dyspnea, unspecified; J20.8 Acute bronchitis due to other specified organisms; N18.9 Chronic kidney disease, unspecified; I10 Essential (primary) hypertension; E11.9 Type 2 diabetes mellitus without complications; I25.10 Atherosclerotic heart disease of native coronary artery without angina pectoris
CPT/HCPCS: 36415; 71046; 80048; 82550; 82553; 83880; 84484; 85025; 93005; 94640; 99284

== ENCOUNTER 2018-07-09 08:59 | Inpatient (IN) | payer MEDICARE ==
[~2018-07-09] VITALS: Ht 188 cm; Wt 90.3 kg
[2018-07-09] MEDS ORDERED: LIDOCAINE JELLY 2% 10ML URO-JET TOP ONE (10:15)
--- NOTE | 2018-07-09 11:00 | NUR ---
GOLDBERG CATHETER INSERTED FOR BLOOD AND BLOOD CLOTS IN URINE CONTINUOUS IRRIGATION TILL CLEAR PER MD GOLDBERG INSERTED AND CONTINUOUS IRRIGATION STARTED NO ADVERSE REACTIONS NOTED PER TAUGHT TO NOTIFY NURSE IMMEDIATELY IF HE STARTS TO FEEL PAIN OR IF BLADDER FEELS FULL
[2018-07-09 11:38] LABS: CLARITY,URINE TURBID (CLEAR); COLOR,URINE RED (YELLOW); PROTEIN,URINE DIPSTICK 3+ (NEGATIVE)
[2018-07-09 11:39] LABS: BILIRUBIN,URINE NEGATIVE (NEGATIVE); KETONES,URINE NEGATIVE (NEGATIVE); LEUKOCYTE ESTERASE ,URINE NEGATIVE (NEGATIVE); NITRITE,URINE NEGATIVE (NEGATIVE); URINE UROBILINOGEN 0.2 mg/dL (0.2 - 1)
[2018-07-09 11:50] LABS: RBC,URINE >50 /HPF (0-5)
[2018-07-09] MEDS ORDERED: SODIUM CHLORIDE FLUSH 10 ML SYR INJ PRN (12:45)
--- NOTE | 2018-07-09 15:17 | NUR ---
CONTINUOUS BLADDER IRRIGATION WITH NS RESTARTED PER MD ORDERS
[2018-07-09] MEDS: HYOSCYAMINE 0.125 MG TAB PO PRN ×2 (16:24→20:18)
--- NOTE | 2018-07-09 19:15 | NUR ---
Report received from AM RN. Patient admitted unit @ 3652 by stretcher. Patient alert/oriented x3. Patient complained around bladder are. patient had continuous bladder irrigation,had bright red urine in Benitez bag. Assisted to irrigation with 50ml syringe. large blood clot noted during irrigation. V/S WNL. Given pain medicines ordered. at the bedside. Head to toe assessment completed. No skin breakdown noted.Bed in lower position,locked. Call ralph within reach.
--- NOTE | 2018-07-09 21:36 | NUR ---
Assisted multiple times to irrigated bladder, still large clots noted during irrigation. Patient tolerated well. Will continue to monitor.
[2018-07-09 22:23] VITALS: BP 121/82
[2018-07-09 23:11] VITALS: BP 121/82
--- NOTE | 2018-07-09 23:17 | NUR ---
Patient urine turn pink in color and more clear in Benitez catheter bag at this time. Will continue to monitor.
[2018-07-10] VITALS (8 sets, daily range): BP systolic 129–159; BP diastolic 70–81
[2018-07-10] MEDS: HYOSCYAMINE 0.125 MG TAB PO PRN ×2 (03:05→10:52)
--- NOTE | 2018-07-10 04:43 | NUR ---
H&P CHIEF COMPLAINT: Bloody urination HISTORY OF PRESENT ILLNESS: This is an 87-year-old man with the history of radiation cystitis after radiation treatment for prostate cancer about 10 years ago, and multiple admissions for hematuria, now with recurrence of hematuria. PAST MEDICAL HISTORY: Prostate cancer, status post radiation therapy about 10 years ago, radiation cystitis with hematuria, diabetes mellitus type 2, hypertension, cigarette use, Hematuria due to radiation cystitis, acute respiratory failure, CKD3 PAST SURGICAL HISTORY: Appendectomy, hernia repair. ALLERGIES: PER ELECTRONIC MEDICAL RECORD. FAMILY HISTORY/SOCIAL HISTORY: Patient is . He has 6 children. No illicit, alcohol. Remote history of smoking. MEDICATIONS: Per electronic medical record. REVIEW OF SYSTEMS: Denies any dizziness, chest pain, shortness of breath, fever, chills, nausea, vomiting, diarrhea, leg pain, back pain, headache, blurred vision. PHYSICAL EXAMINATION VITAL SIGNS: Reviewed. GENERAL: A tired-appearing man resting in bed. HEENT: Anicteric. Pupils react to light. No oral lesions. CARDIOVASCULAR: Normal S1, S2. He has a 3/6 systolic murmur most prominent in the left chest wall. LUNGS: Moderate breath sounds. ABDOMEN: Soft, nontender. : Benitez in place with pink to red-colored urine. EXTREMITIES: No edema. SKIN: Dry. PSYCHIATRIC: Flat affect. NEUROLOGIC: Alert and oriented times 3. Moving all extremities. LABS: Reviewed. MEDICATIONS: Reviewed. ASSESSMENT AND PLAN: An 87-year-old man. 1. Hematuria. 2. Radiation cystitis. 3. History of prostate cancer. 4. Normocytic anemia. 5. CKD3 due to DM2 6. Hypertension. 7.Overweight state. 8. HLD 9.COnstipation PLAN 1. Bladder irrigation 2.urology consult 3. Use SCD, Pepcid for prophylaxis. Disposition: Follow up labs this am. Vidal Samson MD, PhD.
[2018-07-10 05:22] LABS: BASOPHILS % 0.3 % (0.0-1.0); EOSINOPHILS # (AUTO) 0.1 (0.0-0.4); EOSINOPHILS % 0.9 % (0.0-6.0); HEMATOCRIT 32.9 % (38.2-49.6); HEMOGLOBIN 10.6 g/dL (14.0-18.0); LYMPHOCYTES % 22.5 % (18.0-39.1); MEAN CORPUSCULAR HEMOGLOBIN 29.8 pg (28-32); MEAN CORPUSCULAR HGB CONC 32.2 g/dL (31-35); MEAN CORPUSCULAR VOLUME 92.4 fL (81-99); MONOCYTES % 11.3 % (4.4-11.3); NEUTROPHILS # (AUTO) 5.7 (2.1-6.9); NEUTROPHILS % 64.7 % (38.7-80.0); PLATELET COUNT 227 x10e3/uL (140-360); RED BLOOD COUNT 3.56 x10e6/uL (4.3-5.7); RED CELL DISTRIBUTION WIDTH 14.5 % (11.7-14.4)
--- NOTE | 2018-07-10 05:31 | NUR ---
Dr.James contreras in the patient room.
[2018-07-10 05:32] LABS: INR 1.01; PARTIAL THROMBOPLASTIN TIME 30.1 seconds (23.8-35.5); PROTHROMBIN TIME 13.8 seconds (11.9-14.5)
[2018-07-10 05:39] LABS: ANION GAP 9.5 mmol/L (8-16); CALCIUM 9.7 mg/dL (8.4-10.2); CREATININE, SERUM 2.07 mg/dL (0.72-1.25); POTASSIUM 4.5 mmol/L (3.5-5.1)
--- NOTE | 2018-07-10 07:20 | NUR ---
Walking rounds done. CBI infusing, patient c/o supra pubic pain, and manual irrigation done with several clots removed. POC discussed. Patient instructed to call for assistance as needed and verbalized understanding. Call ralph within reach.
--- NOTE | 2018-07-10 07:28 | NUR ---
Report given to AM RN,walking round done.
[2018-07-10] MEDS: LINAGLIPTIN 5 MG PO SCH (08:18)
[2018-07-10] MEDS ORDERED: DEXTROSE 50% SYRINGE 50 ML IV PRN (08:30)
[2018-07-10] MEDS: DOCUSATE SODIUM 100 MG CAP PO SCH ×2 (08:39→16:40)
[2018-07-10] MEDS: FAMOTIDINE 20 MG TAB PO SCH ×2 (08:39→16:39)
[2018-07-10] MEDS: HYDRALAZINE HCL 10 MG TAB PO SCH ×2 (08:39→16:40)
[2018-07-10] MEDS: DUTASTERIDE 0.5 MG CAP PO SCH (08:39)
[2018-07-10] MEDS: FINASTERIDE 5 MG TAB PO SCH (08:40)
[2018-07-10] MEDS: TOLTERODINE TARTRATE 4 MG CAPCR PO SCH (08:40)
[2018-07-10] MEDS: NIFEDIPINE CR 30 MG TAB PO SCH (08:40)
[2018-07-10] MEDS: ALLOPURINOL 300 MG TAB PO SCH (08:40)
[2018-07-10] MEDS: BISACODYL 5 MG TAB EC PO SCH (08:40)
[2018-07-10] MEDS: FUROSEMIDE 20 MG TAB PO SCH ×2 (08:40→16:40)
--- NOTE | 2018-07-10 08:41 | NUR ---
Patient refused insulin states he would call to bring his Tradjenta.
[2018-07-10] MEDS ORDERED: NON-FORMULARY MEDICATION (Linagliptin (Tradjenta) 5 MG) PO SCH (09:00)
[2018-07-10] MEDS ORDERED: BISACODYL 10 MG PO SCH (09:00)
[2018-07-10 09:04] LABS: CHOL/HDL RATIO 2.9 (3.9-4.7)
[2018-07-10] MEDS: INSULIN REGULAR, HUMAN 100 UNIT/1 ML 3ML VIAL SQ SCH ×3 (11:30→20:35)
--- NOTE | 2018-07-10 16:46 | NUR ---
WOUND CARE CONSULTATION: THIS IS AN 87 YEAR OLD MALE ADMITTED TO [facility] FOR HEMATURIA, AND URINARY RETENTION. HEAD TO TOE SKIN ASSESSMENT PERFORMED. PATIENT HAS A RESOLVING RASH TO HIS UPPER BACK; RASH IS BARELY VISIBLE. PATIENT STATED "THE ITCHING HAS RESOLVED AND THE RASH IS PRETTY MUCH GONE". NO OTHER WOUND NOTED WITH ASSESSMENT. LABS: WBC 8.75 [id number] URINE CULTURE PENDING. RECOMMENDATION: -APPLY ALTERNATING PRESSURE RELIEF MATTRESS. -APPLY BILATERAL HEEL PROTECTORS WITH PILLOW SUSPENSION. -ENCOURAGE PATIENT TO TURN EVERY 2 HOURS AND PRN. -NURSING TO APPLY HYDROCORTISONE CREAM TO UPPER BACK TID PRN FOR ITCHING. THANK YOU FOR THIS WOUND CARE CONSULT. Addendum: 07/10/18 at 1656 by Edilia Collazo RN Amended: Links added.
[2018-07-10] MEDS ORDERED: HYDROCORTISONE 1% CREAM 30 GM TUBE TOP PRN (17:00)
--- NOTE | 2018-07-10 18:00 | NUR ---
Patient moved to room 101 via bed with all belongings. Patient will call to notify of room change later
--- NOTE | 2018-07-10 18:05 | NUR ---
Patient arrived on unit via hospital bed. A&Ox3. Lungs clear. Bowel sounds active. Continuous Bladder Irrigation in place at low rate. Extra materials and fluids at bedside. Urine draining clear, no blood noted. No pain reported at this time. Patient reports pain from bladder spasms when passing gas. Skin intact - some irritation noted on back, relieved with moisturizing cream. Hydrocortisone cream ordered for future use. Patient oriented to room, bed locked in lowest position, call light in reach, personal items close, anti-skid socks on feet.
--- NOTE | 2018-07-10 19:00 | NUR ---
received patient aaox3, resting in bed. walker cath intact to CBI- urine clear and yellow. denies pain, denies needs. call light within easy reach, bed locked and in lowest position.
[2018-07-10] MEDS: SIMVASTATIN 20 MG TAB PO SCH (20:35)
[2018-07-10] MEDS ORDERED: SIMVASTATIN 40 MG TAB PO SCH (21:00)
[2018-07-11] VITALS (9 sets, daily range): BP systolic 119–151; BP diastolic 59–73
[2018-07-11] MEDS: INSULIN REGULAR, HUMAN 100 UNIT/1 ML 3ML VIAL SQ SCH ×4 (07:30→21:00)
[2018-07-11] MEDS: FAMOTIDINE 20 MG TAB PO SCH ×2 (07:30→17:04)
[2018-07-11] MEDS: HYDRALAZINE HCL 10 MG TAB PO SCH ×2 (08:31→17:05)
[2018-07-11] MEDS: FUROSEMIDE 20 MG TAB PO SCH ×2 (08:32→17:05)
[2018-07-11] MEDS: ALLOPURINOL 300 MG TAB PO SCH (08:32)
[2018-07-11] MEDS: LINAGLIPTIN 5 MG PO SCH (08:32)
[2018-07-11] MEDS: DOCUSATE SODIUM 100 MG CAP PO SCH ×2 (08:32→17:05)
[2018-07-11] MEDS: NIFEDIPINE CR 30 MG TAB PO SCH (08:32)
[2018-07-11] MEDS: TOLTERODINE TARTRATE 4 MG CAPCR PO SCH (08:32)
[2018-07-11] MEDS: DUTASTERIDE 0.5 MG CAP PO SCH (08:32)
[2018-07-11] MEDS: FINASTERIDE 5 MG TAB PO SCH (08:32)
[2018-07-11] MEDS: BISACODYL 5 MG TAB EC PO SCH (08:32)
[2018-07-11] MEDS ORDERED: MAGNESIUM HYDROXIDE 30 ML UDC PO ONE (10:00)
--- NOTE | 2018-07-11 10:33 | NUR ---
Patient medicated with MOM PO due to 3 days no BM, OOB and assisted to bathroom at this time, slow steady gait with walker, on CBI and walker in place, clear urine output, will monitor
--- NOTE | 2018-07-11 13:53 | NUR ---
IMprogress note O/N; no events REVIEW OF SYSTEMS: Denies any dizziness, chest pain, shortness of breath, fever, chills, nausea, vomiting, diarrhea, leg pain, back pain, headache, blurred vision. PHYSICAL EXAMINATION VITAL SIGNS: Reviewed. GENERAL: A tired-appearing man resting in bed. HEENT: Anicteric. Pupils react to light. No oral lesions. CARDIOVASCULAR: Normal S1, S2. He has a 3/6 systolic murmur most prominent in the left chest wall. LUNGS: Moderate breath sounds. ABDOMEN: Soft, nontender. : Benitez in place with pink to red-colored urine. EXTREMITIES: No edema. SKIN: Dry. PSYCHIATRIC: Flat affect. NEUROLOGIC: Alert and oriented times 3. Moving all extremities. LABS: Reviewed. MEDICATIONS: Reviewed. ASSESSMENT AND PLAN: An 87-year-old man. 1. Hematuria. 2. Radiation cystitis. 3. History of prostate cancer. 4. Normocytic anemia. 5. CKD3 due to DM2 6. Hypertension. 7.Overweight state. 8. HLD 9.COnstipation PLAN 1. Bladder irrigation 2.urology consult 3. Use SCD, Pepcid for prophylaxis. Disposition: Follow up labs this am. 07/11 check labs; Vidal Samson MD, PhD.
--- NOTE | 2018-07-11 14:02 | NUR ---
Nutrition Screen Note RD Recommendation for Physician: Continue diet as ordered Plan of Care: RD following, monitoring for adequacy and tolerance Nutrition reason for involvement: Nutrition Risk Trigger - MST Primary Diagnose(s):hematuria Ht:74 in Wt:199lbs BMI:25.5 kg/m2 IBW:190lbs RD Assessment:(07/11/18) Initial encounter with patient. Pt is eating well. Pt denies any difficulty chewing or swallowing nor has any N,V,D. Pt states he has experienced some wt loss. Current Diet: Cardiac Malnutrition Evaluation (07/11/18l) The patient does not meet criteria for a specified degree of malnutrition at this time. Will re-evaluate at follow-up as appropriate. Diet Education Needs Assessment: Diet education not indicated. Diet Adequacy: Meeting calorie needs, Meeting protein needs, Meeting fluid needs Tolerance: Tolerating PO Nutrition Care Level:Prashanth Miranda RD, LD, CNSC
[2018-07-11 15:14] LABS: BASOPHILS # (AUTO) 0.1 (0.0-0.1); BASOPHILS % 0.5 % (0.0-1.0); EOSINOPHILS # (AUTO) 0.1 (0.0-0.4); EOSINOPHILS % 1.2 % (0.0-6.0); HEMATOCRIT 36.3 % (38.2-49.6); LYMPHOCYTES # (AUTO) 1.4 (1.0-3.2); LYMPHOCYTES % 14.4 % (18.0-39.1); MEAN CORPUSCULAR HEMOGLOBIN 30.2 pg (28-32); MEAN CORPUSCULAR HGB CONC 33.1 g/dL (31-35); MEAN CORPUSCULAR VOLUME 91.2 fL (81-99); MONOCYTES # (AUTO) 1.2 (0.2-0.8); MONOCYTES % 12.5 % (4.4-11.3); NEUTROPHILS # (AUTO) 6.8 (2.1-6.9); PLATELET COUNT 238 x10e3/uL (140-360); RED BLOOD COUNT 3.98 x10e6/uL (4.3-5.7); RED CELL DISTRIBUTION WIDTH 14.4 % (11.7-14.4)
[2018-07-11 15:44] LABS: ANION GAP 13.2 mmol/L (8-16); CALCIUM 9.7 mg/dL (8.4-10.2); CREATININE, SERUM 2.51 mg/dL (0.72-1.25); POTASSIUM 4.2 mmol/L (3.5-5.1)
--- NOTE | 2018-07-11 17:56 | NUR ---
Patient alert and responsive, VSS and rounds by Dr. Reyna, will remove Benitez tomorrow and discharge patient tomorrow. Assisted back to bed and denies any pains
--- NOTE | 2018-07-11 19:06 | NUR ---
RECEIVED PATIENT AAOX3, STABLE CONDITION, RESTING IN BED. GOLDBERG, WITH CBI- OUTPUT CLEAR AND YELLOW. NO NEEDS VOICED, NO PAIN VOICED. BED LOCKED AND IN LOWEST POSITION, CALL LIGHT WITHIN REACH.
[2018-07-11] MEDS: SIMVASTATIN 20 MG TAB PO SCH (21:26)
[2018-07-12] VITALS: BP 110/57
[2018-07-12 04:00] VITALS: BP 133/55
--- NOTE | 2018-07-12 06:45 | NUR ---
Discharge summary ASSESSMENT AND PLAN: An 87-year-old man. 1. Hematuria. 2. Radiation cystitis. 3. History of prostate cancer. 4. Normocytic anemia. 5. CKD3 due to DM2 6. Hypertension. 7.Overweight state. 8. HLD 9.COnstipation PLAN 1. Bladder irrigation 2.urology consult 3. Use SCD, Pepcid for prophylaxis. Disposition: Follow up labs this am. 07/11 check labs; urine clear 07/12 check lytes; d/c planning; walker removed yesterday d/c home stable f/u pcp 1 week and urology 2 weeks d/c >35mins Vidal Samson MD, PhD.
--- NOTE | 2018-07-12 06:54 | NUR ---
walker cath removed at 0651, cath tip intact. patient tolerated well. urinal at bedside. cups provided for serial urines. call light within reach, bed locked and in lowest position.
[2018-07-12] MEDS: INSULIN REGULAR, HUMAN 100 UNIT/1 ML 3ML VIAL SQ SCH ×2 (07:30→11:46)
[2018-07-12 07:46] LABS: ANION GAP 12.6 mmol/L (8-16); CALCIUM 9.1 mg/dL (8.4-10.2); CREATININE, SERUM 2.23 mg/dL (0.72-1.25); MAGNESIUM 2.2 MG/DL (1.3-2.1); PHOSPHORUS 3.1 MG/DL (2.3-4.7); POTASSIUM 3.6 mmol/L (3.5-5.1)
[2018-07-12 08:20] VITALS: BP 128/62
[2018-07-12] MEDS: LINAGLIPTIN 5 MG PO SCH (08:35)
[2018-07-12] MEDS: FAMOTIDINE 20 MG TAB PO SCH (08:35)
[2018-07-12] MEDS: FUROSEMIDE 20 MG TAB PO SCH (08:35)
[2018-07-12] MEDS: HYDRALAZINE HCL 10 MG TAB PO SCH (08:35)
[2018-07-12] MEDS: BISACODYL 5 MG TAB EC PO SCH (08:35)
[2018-07-12] MEDS: TOLTERODINE TARTRATE 4 MG CAPCR PO SCH (08:35)
[2018-07-12] MEDS: DUTASTERIDE 0.5 MG CAP PO SCH (08:35)
[2018-07-12] MEDS: DOCUSATE SODIUM 100 MG CAP PO SCH (08:35)
[2018-07-12] MEDS: ALLOPURINOL 300 MG TAB PO SCH (08:36)
[2018-07-12] MEDS: NIFEDIPINE CR 30 MG TAB PO SCH (08:36)
[2018-07-12] MEDS: FINASTERIDE 5 MG TAB PO SCH (08:36)
[2018-07-12 08:47] VITALS: BP 128/62
--- NOTE | 2018-07-12 11:49 | NUR ---
Call to Dr. Reyna for clearance to discharge patient and stated will be coming in to see patient first.
[2018-07-12 11:57] VITALS: BP 109/56
--- NOTE | 2018-07-12 14:32 | NUR ---
Dr. Reyna cleared patient for discharge, f/u appts set up already, no prescriptions, voiding well, patient discharged and provided with discharge documentation.
== END 2018-07-12 14:15 | disposition home or self-care (01) | DRG 700 ==
LOC: ER 08:59 → ERHOLD 13:37 → IMCU 18:58 → OBSVTOIN 07-10 13:32 → MED/SURG 07-10 18:00
PROVIDERS: ADMIT Internal Medicine; ATTEND Internal Medicine
DX: N30.41 Irradiation cystitis with hematuria (principal); Y63.3 Inadvertent exposure of patient to radiation during medical care; D64.9 Anemia, unspecified; E11.22 Type 2 diabetes mellitus with diabetic chronic kidney disease; I12.9 Hypertensive chronic kidney disease with stage 1 through stage 4 chronic kidney disease, or unspecified chronic kidney disease; N18.3 Chronic kidney disease, stage 3 (moderate); E66.3 Overweight; Z68.25 Body mass index [BMI] 25.0-25.9, adult; E78.5 Hyperlipidemia, unspecified; K59.00 Constipation, unspecified; Z85.46 Personal history of malignant neoplasm of prostate
CPT/HCPCS: 36415; 51703; 80048; 80061; 81001; 82948; 83036; 83735; 84100; 85025; 85610; 85730; 87086; 99283; G0378

== ENCOUNTER 2018-07-22 12:11 | Inpatient (IN) | payer MEDICARE ==
[~2018-07-22] VITALS: Ht 188 cm; Wt 91.7 kg
--- NOTE | 2018-07-22 12:17 | NUR ---
PATIENT HAD TO GO TO BATHROOM DURING TRIAGE
[2018-07-22 15:06] LABS: CLARITY,URINE TURBID (CLEAR); COLOR,URINE RED (YELLOW)
[2018-07-22 15:07] LABS: BILIRUBIN,URINE NEGATIVE (NEGATIVE); KETONES,URINE NEGATIVE (NEGATIVE); LEUKOCYTE ESTERASE ,URINE TRACE (NEGATIVE); NITRITE,URINE NEGATIVE (NEGATIVE); PROTEIN,URINE DIPSTICK 2+ (NEGATIVE); URINE UROBILINOGEN 0.2 mg/dL (0.2 - 1)
[2018-07-22 15:08] LABS: RBC,URINE >50 /HPF (0-5); WBC,URINE (MAN) 0-5 /HPF (0-5)
[2018-07-22 16:07] LABS: BASOPHILS # (AUTO) 0.1 (0.0-0.1); BASOPHILS % 0.5 % (0.0-1.0); EOSINOPHILS # (AUTO) 0.1 (0.0-0.4); EOSINOPHILS % 1.4 % (0.0-6.0); HEMATOCRIT 34.6 % (38.2-49.6); HEMOGLOBIN 11.1 g/dL (14.0-18.0); LYMPHOCYTES # (AUTO) 2.2 (1.0-3.2); LYMPHOCYTES % 23.9 % (18.0-39.1); MEAN CORPUSCULAR HEMOGLOBIN 29.8 pg (28-32); MEAN CORPUSCULAR HGB CONC 32.1 g/dL (31-35); MEAN CORPUSCULAR VOLUME 92.8 fL (81-99); MONOCYTES # (AUTO) 0.7 (0.2-0.8); NEUTROPHILS % 65.4 % (38.7-80.0); PLATELET COUNT 279 x10e3/uL (140-360); RED BLOOD COUNT 3.73 x10e6/uL (4.3-5.7); RED CELL DISTRIBUTION WIDTH 14.1 % (11.7-14.4)
[2018-07-22 16:30] LABS: ALBUMIN 3.7 g/dL (3.5-5.0); ALBUMIN/GLOBULIN RATIO 0.9 (0.8-2.0); ALKALINE PHOSPHATASE 95 IU/L (40-150); BLOOD UREA NITROGEN 30 mg/dL (7-26); BUN/CREATININE RATIO 11 (6-25); CALCIUM 9.7 mg/dL (8.4-10.2); CARBON DIOXIDE 27 mmol/L (22-29); CHLORIDE 102 mmol/L (98-107); CREATININE, SERUM 2.74 mg/dL (0.72-1.25); EST GLOMERULAR FILTRATION RATE 22 ML/MIN (60-); GLUCOSE 184 mg/dL (74-118); SODIUM 137 mmol/L (136-145)
[2018-07-22 16:33] LABS: ALANINE AMINOTRANSFERASE < 6 IU/L (0-55)
[2018-07-22] MEDS ORDERED: LIDOCAINE JELLY 2% 10ML URO-JET TOP ONE (17:15)
[2018-07-22] MEDS ORDERED: DEXTROSE 50% SYRINGE 50 ML IV PRN (19:30)
[2018-07-22] MEDS ORDERED: ONDANSETRON HCL INJ 2MG/ML 2ML 2 MG/ML VIAL IV PRN (19:30)
[2018-07-22] MEDS: SODIUM CHLORIDE 0.9% 1000ML 1,000 ML IV SCH (19:50)
[2018-07-22 19:57] LABS: INR 0.96; PROTHROMBIN TIME 13.3 seconds (11.9-14.5)
[2018-07-22 19:58] LABS: PARTIAL THROMBOPLASTIN TIME 26.5 seconds (23.8-35.5)
--- NOTE | 2018-07-22 20:15 | NUR ---
RECEIVED REPORT FROM ER ON PATIENT FOR GROSS HEMATURIA. [facility] CALLED AND CONSULTED TO CONFIRM FOR CONTINUOUS IRRIGATION AND MANUAL IRRIGATION PRN TO PREVENT BLOOD CLOT. CALLED CHARGE NURSE TO GET CYTOPSCOPY KIT TO START CONTINUOUS IRRIGATION. RIGHT AC IV IS INFILTRATED. IV REMOVED. WILL START NEW IV. IRRIGATION BEGAN AND FLOWING.
[2018-07-22 20:30] VITALS: BP 129/60
[2018-07-22 20:57] VITALS: BP 127/65
[2018-07-22] MEDS: INSULIN LISPRO 100 UNIT/1 ML 3ML VIAL SQ SCH (21:39)
[2018-07-23] VITALS (8 sets, daily range): BP systolic 114–153; BP diastolic 56–71
[2018-07-23] MEDS: SODIUM CHLORIDE 0.9% 1000ML 1,000 ML IV SCH ×3 (03:22→19:00)
[2018-07-23 06:21] LABS: BASOPHILS # (AUTO) 0.1 (0.0-0.1); BASOPHILS % 0.6 % (0.0-1.0); EOSINOPHILS # (AUTO) 0.3 (0.0-0.4); EOSINOPHILS % 3.4 % (0.0-6.0); HEMATOCRIT 29.2 % (38.2-49.6); HEMOGLOBIN 9.6 g/dL (14.0-18.0); LYMPHOCYTES # (AUTO) 1.8 (1.0-3.2); LYMPHOCYTES % 21.5 % (18.0-39.1); MEAN CORPUSCULAR HEMOGLOBIN 30.8 pg (28-32); MEAN CORPUSCULAR HGB CONC 32.9 g/dL (31-35); MEAN CORPUSCULAR VOLUME 93.6 fL (81-99); MONOCYTES # (AUTO) 0.8 (0.2-0.8); MONOCYTES % 9.6 % (4.4-11.3); NEUTROPHILS # (AUTO) 5.3 (2.1-6.9); NEUTROPHILS % 64.5 % (38.7-80.0); PLATELET COUNT 249 x10e3/uL (140-360); RED BLOOD COUNT 3.12 x10e6/uL (4.3-5.7)
[2018-07-23 06:40] LABS: CALCIUM 8.8 mg/dL (8.4-10.2); CREATININE, SERUM 2.11 mg/dL (0.72-1.25)
--- NOTE | 2018-07-23 07:15 | NUR ---
PT ASLEEP RESP EVEN AND UNLABORED AT THIS TIME NO DISTRESS NOTED AT THIS TIME, PT HAS CBI INFUSING , AND TOLERATING WELL, PT HAS FAMILY MEMBER AT BEDSIDE, CALL LIGHT IN REACH.
--- NOTE | 2018-07-23 08:00 | NUR ---
H&P CHIEF COMPLAINT: Bloody urination HISTORY OF PRESENT ILLNESS: This is an 87-year-old man, with hx radiation cystitis after radiation treatment for prostate cancer about 10 years ago, recently admitted with hematuria, now with recurrence; not on ASA or anticoagulants/antiplatelets; PAST MEDICAL HISTORY: Prostate cancer, status post radiation therapy about 10 years ago, radiation cystitis with hematuria, diabetes mellitus type 2, hypertension, cigarette use, Hematuria due to radiation cystitis, acute respiratory failure, CKD3 PAST SURGICAL HISTORY: Appendectomy, hernia repair. ALLERGIES: PER ELECTRONIC MEDICAL RECORD. FAMILY HISTORY/SOCIAL HISTORY: Patient is . He has 6 children. No illicit, alcohol. Remote history of smoking. MEDICATIONS: Per electronic medical record. REVIEW OF SYSTEMS: Denies any dizziness, chest pain, shortness of breath, fever, chills, nausea, vomiting, diarrhea, leg pain, back pain, headache, blurred vision. PHYSICAL EXAMINATION VITAL SIGNS: Reviewed. GENERAL: A tired-appearing man resting in bed. HEENT: Anicteric. Pupils react to light. No oral lesions. CARDIOVASCULAR: Normal S1, S2. He has a 3/6 systolic murmur most prominent in the left chest wall. LUNGS: Moderate breath sounds. ABDOMEN: Soft, nontender. : Benitez in place with pink to pink-colored urine. EXTREMITIES: No edema. SKIN: Dry. PSYCHIATRIC: Flat affect. NEUROLOGIC: Alert and oriented times 3. Moving all extremities. LABS: Reviewed. MEDICATIONS: Reviewed. ASSESSMENT AND PLAN: An 87-year-old man. Hematuria Hx Radiation cystitis Right renal stone- non-obx Right renal mass GAGAN in CKD3 CKD3 due to DM2 Hx prostate cancer HTN Overweight state BMI 25.3 Consitpation HLD PLAN Bladder irrigation+urology consult Will need mass protocol for further eval right renal mass- await urology Home meds scd/ppi Vidal Samson MD, PhD.
[2018-07-23] MEDS: (Linagliptin (Tradjenta) 5 MG) PO SCH (09:00)
[2018-07-23] MEDS: DUTASTERIDE 0.5 MG CAP PO SCH (09:00)
[2018-07-23] MEDS: FINASTERIDE 5 MG TAB PO SCH (09:00)
[2018-07-23] MEDS ORDERED: BISACODYL 10 MG PO SCH (09:00)
--- NOTE | 2018-07-23 09:23 | Diagnostic Imaging Report ---
EXAM: CT ABDOMEN AND PELVIS without IV CONTRAST DATE: 07/23/2018 Time stamp on Exam: 8:44 AM INDICATION: Hematuria COMPARISON: None TECHNIQUE: The abdomen and pelvis were scanned using a multidetector helical scanner. Coronal and sagittal reformations were obtained. Renal stone protocol was utilized. Technique modification was accomplished to maintain the lowest dose possible to the patient. IV Contrast: None Oral Contrast: None Radiation Dose: Total DLP 488.79 mGy*cm Estimated effective dose: DLP x 0.015 x size factor FINDINGS: LOWER THORAX: No consolidations. Aortic and coronary artery calcification. LIVER: No masses with scattered granulomatous calcification. BILIARY: The gallbladder is unremarkable. No ductal dilatation. SPLEEN: No masses PANCREAS: No masses ADRENALS: No nodules KIDNEYS: No hydronephrosis. Small right lower pole renal stone. Multiple hypodense lesions within the kidneys likely are cysts but difficult to characterize without IV contrast. Contour abnormality with a possible right lower pole 3.1 cm solid mass. Renal mass protocol CT is recommended for further evaluation. GI TRACT: No distention, wall thickening or evidence of obstruction. VESSELS: Vascular calcification. PERITONEUM/RETROPERITONEUM: No free air or fluid LYMPH NODES: No lymphadenopathy REPRODUCTIVE ORGANS: Unremarkable BLADDER: Catheter present within the bladder. SOFT TISSUES: Fat-containing left inguinal hernia. BONES: No suspicious bone lesions. Extensive degenerative changes of the spine.1 IMPRESSION: 1. Multiple hypodense lesions in both kidneys likely are cysts. 2. Contour abnormality of the right lower renal pole suggests a solid mass. 3. Nonobstructing small right renal stone. 4. CT scan with contrast (renal mass protocol) is recommended for further renal characterization especially in a patient with hematuria. 5.. Fat-containing left inguinal hernia. Signed by: Dr. Jonn Chen DO on 07/23/2018 9:20 AM
[2018-07-23] MEDS: HYDRALAZINE HCL 10 MG TAB PO SCH ×2 (10:06→18:19)
[2018-07-23] MEDS: BISACODYL 5 MG TAB EC PO SCH (10:06)
[2018-07-23] MEDS: DOCUSATE SODIUM 100 MG CAP PO SCH ×2 (10:06→18:19)
[2018-07-23] MEDS: ALLOPURINOL 300 MG TAB PO SCH (10:07)
[2018-07-23] MEDS: NIFEDIPINE CR 30 MG TAB PO SCH (10:07)
[2018-07-23] MEDS: TOLTERODINE TARTRATE 4 MG CAPCR PO SCH (10:30)
[2018-07-23] MEDS ORDERED: BELLADONNA/OPIUM 30 MG SUPP RC PRN (11:15)
[2018-07-23] MEDS: INSULIN LISPRO 100 UNIT/1 ML 3ML VIAL SQ SCH ×4 (11:19→21:36)
--- NOTE | 2018-07-23 11:26 | NUR ---
CASE MANAGEMENT ASSESSMENT 3D Animator to bedside to discuss plan of care with patient/family. CM/SW role and care transitions discussed. Anticipated discharge plan discussed along with duration of care. CM/SW discussed patients right to make decisions in care. CM/SW work hours given. Patient lives: with Admit/Transfer: thru ED Hospital/ER visits since last admit: 1, was last admitted July 09, 2018 and discharged on July 12. POA/Emergency contact: Jessica Barbour [phone] Current/Previous Home Health: none PCP/Follow-up Care: Dr. Clif Martell - PCP, Dr. Reyna - urology; pt was advised to follow up with MD within 5 days of discharge. His at bedside stated she will make follow up appointments for him Current/Previous DME: uses his 's rollator at home, cane when out of the house. requesting a rollator for himself. Medications (referring to index hospitalization or the first time you were in the hospital) a. Were changes made in your medications when you were in the hospital on July 09? none b. Did you understand the changes? n/a c. Were you able to obtain your new medications right away? n/a d. Were you able to take your medications like the doctor wanted you to? n/a e. Did the hospital give you an accurate, easy to understand list of medications when you left? n/a Scale of 1-10 how comfortable does patient feel with disease management in outpatient settin Other Services: none Employment Status: retired Areas of Concerns: hematuria Referral Needs: may need home health Education Needs: medical management IMM/MCGEE given and signed (if applicable): MCGEE given on admission Goal for discharge: home CM/SW left business card at the bedside with contact information. Name and number was also written on the patients whiteboard. Patient verbalized understanding of discussion. CM will follow-up with ongoing discharge and transition of care needs.
--- NOTE | 2018-07-23 14:00 | NUR ---
pt received b/o suppository, and tolerated well.
[2018-07-23] MEDS ORDERED: FAMOTIDINE 20 MG TAB PO SCH (16:30)
[2018-07-23] MEDS: FAMOTIDINE 20 MG TAB PO SCH (18:20)
--- NOTE | 2018-07-23 18:57 | NUR ---
report given to oncoming nurse for continued care.
--- NOTE | 2018-07-23 19:00 | NUR ---
Dr Samson was called for Milk of Magnesia, it was declined , senna was given instead.
[2018-07-23] MEDS ORDERED: SIMVASTATIN 40 MG TAB PO SCH (21:00)
[2018-07-23] MEDS: SIMVASTATIN 20 MG TAB PO SCH (21:33)
[2018-07-24] VITALS (7 sets, daily range): BP systolic 118–132; BP diastolic 57–62
[2018-07-24] MEDS: SODIUM CHLORIDE 0.9% 1000ML 1,000 ML IV SCH ×3 (03:12→21:00)
[2018-07-24 06:23] LABS: BASOPHILS # (AUTO) 0.1 (0.0-0.1); BASOPHILS % 0.6 % (0.0-1.0); EOSINOPHILS # (AUTO) 0.4 (0.0-0.4); EOSINOPHILS % 3.9 % (0.0-6.0); HEMATOCRIT 32.2 % (38.2-49.6); HEMOGLOBIN 10.3 g/dL (14.0-18.0); LYMPHOCYTES # (AUTO) 1.9 (1.0-3.2); LYMPHOCYTES % 20.4 % (18.0-39.1); MEAN CORPUSCULAR VOLUME 93.9 fL (81-99); MONOCYTES % 10.6 % (4.4-11.3); NEUTROPHILS # (AUTO) 5.8 (2.1-6.9); NEUTROPHILS % 64.1 % (38.7-80.0); PLATELET COUNT 248 x10e3/uL (140-360); RED BLOOD COUNT 3.43 x10e6/uL (4.3-5.7); RED CELL DISTRIBUTION WIDTH 13.9 % (11.7-14.4)
[2018-07-24 06:45] LABS: ANION GAP 11.2 mmol/L (8-16); CALCIUM 8.9 mg/dL (8.4-10.2); CREATININE, SERUM 1.52 mg/dL (0.72-1.25); POTASSIUM 4.2 mmol/L (3.5-5.1)
--- NOTE | 2018-07-24 07:14 | NUR ---
Received patient resting in bed, no signs of distress. Call light in reach, will continue to monitor.
[2018-07-24] MEDS: INSULIN LISPRO 100 UNIT/1 ML 3ML VIAL SQ SCH ×5 (07:30→21:10)
--- NOTE | 2018-07-24 08:20 | NUR ---
Removed Benitez, catheter tip intact, patient due to void.
[2018-07-24] MEDS: FAMOTIDINE 20 MG TAB PO SCH ×2 (08:36→16:26)
[2018-07-24] MEDS: DOCUSATE SODIUM 100 MG CAP PO SCH ×2 (08:37→16:26)
[2018-07-24] MEDS: HYDRALAZINE HCL 10 MG TAB PO SCH ×2 (08:37→16:26)
[2018-07-24] MEDS: TOLTERODINE TARTRATE 4 MG CAPCR PO SCH (08:37)
[2018-07-24] MEDS: (Linagliptin (Tradjenta) 5 MG) PO SCH (08:37)
[2018-07-24] MEDS: DUTASTERIDE 0.5 MG CAP PO SCH (08:37)
[2018-07-24] MEDS: BISACODYL 5 MG TAB EC PO SCH (08:37)
[2018-07-24] MEDS: ALLOPURINOL 300 MG TAB PO SCH (08:38)
[2018-07-24] MEDS: NIFEDIPINE CR 30 MG TAB PO SCH (08:38)
[2018-07-24] MEDS: FINASTERIDE 5 MG TAB PO SCH (08:38)
[2018-07-24] MEDS: SENNOSIDES 8.6 MG TAB PO SCH ×2 (08:38→16:27)
--- NOTE | 2018-07-24 09:30 | NUR ---
PATIENT A/O X3, EVEN RESPIRATIONS ON RA. BOWEL SOUNDS ACTIVE, SKIN INTACT, NO EDEMA. LEFT FA 20 GAUGE WITH NS @ 125 CC/HR. GOLDBERG REMOVED THIS AM, COLLECTING SERIAL URINES. PATIENT AMBULATORY WITH ASSISTANCE. NO SIGNS OF DISTRESS OR DISCOMFORT AT THIS TIME. CALL LIGHT IN REACH, WILL CONTINUE TO MONITOR.
--- NOTE | 2018-07-24 12:23 | NUR ---
PATIENT HAS VOIDED SINCE GOLDBERG REMOVAL.
--- NOTE | 2018-07-24 13:12 | NUR ---
SPOKE ABOUT PT IN ROUNDS PT IS ON SERIAL URINES, IF HE GOES 3 TIMES CLEARLY HE WILL DISCHARGE HOME TODAY WITH NO NEEDS
--- NOTE | 2018-07-24 13:53 | NUR ---
SPOKE WITH DOCTOR GOT ORDER FOR ROLLATOR FAXED TO JAMMIE WITH [employer] [phone]. HE STATES IF APPROVED IT WILL BE DELIVERED TO THE PT HOME.
--- NOTE | 2018-07-24 17:35 | NUR ---
IM- progress note O/N: no events REVIEW OF SYSTEMS: Denies any dizziness, chest pain, shortness of breath, fever, chills, nausea, vomiting, diarrhea, leg pain, back pain, headache, blurred vision. PHYSICAL EXAMINATION VITAL SIGNS: Reviewed. GENERAL: A tired-appearing man resting in bed. HEENT: Anicteric. Pupils react to light. No oral lesions. CARDIOVASCULAR: Normal S1, S2. He has a 3/6 systolic murmur most prominent in the left chest wall. LUNGS: Moderate breath sounds. ABDOMEN: Soft, nontender. : Walker in place with pink to pink-colored urine. EXTREMITIES: No edema. SKIN: Dry. PSYCHIATRIC: Flat affect. NEUROLOGIC: Alert and oriented times 3. Moving all extremities. LABS: Reviewed. MEDICATIONS: Reviewed. ASSESSMENT AND PLAN: An 87-year-old man. 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 Vidal Samson MD, PhD.
--- NOTE | 2018-07-24 21:10 | NUR ---
AAOX3.VOIDED.NO RESP.DISTRESS.NO PAIN VOICED.SERIAL URINE COLLECTING.CLEAR.BED LOCKED AND IN LOWEST POSITION.BED ALARM ON.ALL THE BELONGINGS WITHIN REACH.INSTRUCTED TO CALL FOR ASSISTANCE NEEDED.
[2018-07-24] MEDS: SIMVASTATIN 20 MG TAB PO SCH (21:30)
[2018-07-25] VITALS: BP 147/67
[2018-07-25 04:00] VITALS: BP 136/64
[2018-07-25] MEDS: SODIUM CHLORIDE 0.9% 1000ML 1,000 ML IV SCH ×2 (04:54→11:17)
[2018-07-25 05:54] LABS: BASOPHILS % 0.5 % (0.0-1.0); EOSINOPHILS # (AUTO) 0.5 (0.0-0.4); EOSINOPHILS % 6.7 % (0.0-6.0); HEMATOCRIT 32.4 % (38.2-49.6); HEMOGLOBIN 10.3 g/dL (14.0-18.0); LYMPHOCYTES # (AUTO) 2.4 (1.0-3.2); LYMPHOCYTES % 30.4 % (18.0-39.1); MEAN CORPUSCULAR HEMOGLOBIN 29.9 pg (28-32); MEAN CORPUSCULAR HGB CONC 31.8 g/dL (31-35); MEAN CORPUSCULAR VOLUME 93.9 fL (81-99); MONOCYTES # (AUTO) 0.7 (0.2-0.8); MONOCYTES % 9.4 % (4.4-11.3); NEUTROPHILS # (AUTO) 4.1 (2.1-6.9); NEUTROPHILS % 52.6 % (38.7-80.0); PLATELET COUNT 253 x10e3/uL (140-360); RED BLOOD COUNT 3.45 x10e6/uL (4.3-5.7)
[2018-07-25 06:20] LABS: ANION GAP 9.7 mmol/L (8-16); CALCIUM 9.2 mg/dL (8.4-10.2); CREATININE, SERUM 1.64 mg/dL (0.72-1.25); POTASSIUM 4.7 mmol/L (3.5-5.1)
--- NOTE | 2018-07-25 07:00 | NUR ---
REPORT GIVEN TO MORNING RN.WALKING ROUNDS DONE.STABLE CONDITION.
[2018-07-25] MEDS: INSULIN LISPRO 100 UNIT/1 ML 3ML VIAL SQ SCH ×2 (07:30→12:42)
--- NOTE | 2018-07-25 07:51 | NUR ---
RECEIVED PATIENT AWAKE IN BED NO SIGNS OF DISTRESS. CALL LIGHT IN REACH, WILL CONTINUE TO MONITOR.
[2018-07-25 08:00] VITALS: BP 146/65
[2018-07-25] MEDS: NIFEDIPINE CR 30 MG TAB PO SCH (08:19)
[2018-07-25] MEDS: HYDRALAZINE HCL 10 MG TAB PO SCH (08:19)
[2018-07-25] MEDS: FINASTERIDE 5 MG TAB PO SCH (08:19)
[2018-07-25] MEDS: TOLTERODINE TARTRATE 4 MG CAPCR PO SCH (08:19)
[2018-07-25] MEDS: FAMOTIDINE 20 MG TAB PO SCH (08:19)
[2018-07-25] MEDS: BISACODYL 5 MG TAB EC PO SCH (08:19)
[2018-07-25] MEDS: DUTASTERIDE 0.5 MG CAP PO SCH (08:19)
[2018-07-25] MEDS: DOCUSATE SODIUM 100 MG CAP PO SCH (08:19)
[2018-07-25] MEDS: (Linagliptin (Tradjenta) 5 MG) PO SCH (08:19)
[2018-07-25] MEDS: SENNOSIDES 8.6 MG TAB PO SCH (08:19)
[2018-07-25] MEDS: ALLOPURINOL 300 MG TAB PO SCH (08:20)
[2018-07-25 09:41] VITALS: BP 146/65
[2018-07-25] MEDS ORDERED: CIPRO500 MG PO (10:08)
--- NOTE | 2018-07-25 10:09 | NUR ---
Discharge summary ASSESSMENT AND PLAN: An 87-year-old man. 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 Enterococcus UTi- cipro. d/c home f/u pcp 1 week and urology 2 weeks stable d/c>35mins Vidal Samson MD, PhD.
--- NOTE | 2018-07-25 10:12 | NUR ---
EDUCATED ABOUT IMM, SIGNED, FILED IN CHART, WITH COPY LEFT WITH FAMILY AT BEDSIDE.
[2018-07-25 12:00] VITALS: BP 155/70
[2018-07-25] MEDS ORDERED: CIPROFLOXACIN250 MG PO (15:38)
--- NOTE | 2018-07-25 17:06 | NUR ---
REMOVED PATIENTS IV. CATHETER TIP INTACT AND PRESSURE DRESSING APPLIED.
--- NOTE | 2018-07-25 17:16 | NUR ---
PATIENT DISCHARGED FROM FACILITY. PATIENT GATHERED ALL BELONGINGS AND DISCHARGE INSTRUCTIONS. PRESCRIPTIONS AND FOLLOW UP INFORMATION GIVEN TO PATIENT. NO SIGNS OF DISTRESS WHEN LEAVING FACILITY.
[2018-07-25 17:20] VITALS: BP 131/63
== END 2018-07-25 17:16 | disposition home or self-care (01) | DRG 699 ==
LOC: ER 12:11 → ERHOLD 19:25 → MED/SURG 21:00 → OBSVTOIN 07-23 13:07
PROVIDERS: ADMIT Internal Medicine; ATTEND Internal Medicine
DX: N30.41 Irradiation cystitis with hematuria (principal); N17.9 Acute kidney failure, unspecified; B95.2 Enterococcus as the cause of diseases classified elsewhere; Y84.2 Radiological procedure and radiotherapy as the cause of abnormal reaction of the patient, or of later complication, without mention of misadventure at the time of the procedure; E11.22 Type 2 diabetes mellitus with diabetic chronic kidney disease; I12.9 Hypertensive chronic kidney disease with stage 1 through stage 4 chronic kidney disease, or unspecified chronic kidney disease; N18.3 Chronic kidney disease, stage 3 (moderate); Z79.84 Long term (current) use of oral hypoglycemic drugs; N20.0 Calculus of kidney; Z85.46 Personal history of malignant neoplasm of prostate; K59.00 Constipation, unspecified; E78.5 Hyperlipidemia, unspecified; Z87.891 Personal history of nicotine dependence; N28.89 Other specified disorders of kidney and ureter; D64.9 Anemia, unspecified; N32.89 Other specified disorders of bladder
CPT/HCPCS: 36415; 51700; 51703; 74176; 80048; 80053; 81001; 82948; 85025; 85610; 85730; 87086; 87186; 96360; 99284; G0378; J7030

== ENCOUNTER → 2018-10-12 | Outpatient (CLI) | payer MEDICARE ==
[~2018-10-12] MED LIST changes: +CIPRO500 MG PO; +CIPROFLOXACIN250 MG PO
[2018-10-12 13:33] LABS: CREATININE, SERUM 2.62 mg/dL (0.72-1.25)
== END ==
LOC: MRI 12:34
PROVIDERS: ATTEND Urology
DX: D44.10 Neoplasm of uncertain behavior of unspecified adrenal gland (principal); R31.0 Gross hematuria
CPT/HCPCS: 36415; 82565; 84520

== ENCOUNTER 2018-10-13 12:10 | Emergency (ER) | payer MEDICARE ==
[~2018-10-13] VITALS: Ht 188 cm; Wt 88.9 kg
[2018-10-13 13:08] VITALS: BP 132/67
== END 2018-10-13 13:11 | disposition home or self-care (01) ==
LOC: FSED 12:10
DX: S61.401A Unspecified open wound of right hand, initial encounter (principal); W22.8XXA Striking against or struck by other objects, initial encounter; Y92.003 Bedroom of unspecified non-institutional (private) residence as the place of occurrence of the external cause; E11.9 Type 2 diabetes mellitus without complications; I10 Essential (primary) hypertension; J45.909 Unspecified asthma, uncomplicated; E78.5 Hyperlipidemia, unspecified; F41.9 Anxiety disorder, unspecified; M19.90 Unspecified osteoarthritis, unspecified site; Z79.84 Long term (current) use of oral hypoglycemic drugs
CPT/HCPCS: 99283

== ENCOUNTER → 2018-10-21 | Outpatient (CLI) | payer MEDICARE ==
--- NOTE | 2018-10-21 15:48 | Diagnostic Imaging Report ---
EXAM: MRI of the abdomen and pelvis without contrast. INDICATION: Gross hematuria. COMPARISON: CT dated 07/23/2018. TECHNIQUE: Multiplanar and multisequence imaging was performed of the abdomen and pelvis without administration of intravenous contrast. DISCUSSION: Limited study due to motion artifact and lack of intravenous contrast. LOWER THORAX: Unremarkable. HEPATOBILIARY: No definite focal hepatic lesions visualized. No biliary ductal dilation. GALLBLADDER: No radio-opaque stones or sludge. No wall thickening. SPLEEN: No splenomegaly. PANCREAS: No focal masses or ductal dilatation. ADRENALS: No adrenal nodules KIDNEYS/URETERS: Multiple bilateral renal T2 hyperintense, T1 hypointense lesions, likely cysts, the largest in the left superior pole measuring 2.8 x 2.7 cm and in the right midpole measuring 3.3 x 2.7 cm. No definite right renal inferior pole mass visualized. No hydronephrosis. GI TRACT: Visualized bowel loops are unremarkable. No evidence of bowel obstruction. Colonic diverticulosis without evidence of diverticulitis. PELVIS: Bladder is under distended, limiting evaluation. There is a small right posterior bladder diverticulum, seen on pelvic series 15, image 14, measuring 1.1 cm. LYMPH NODES: No lymphadenopathy. VESSELS: Unremarkable. BONES: Degenerative changes of spine. 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 SOFT TISSUES: Unremarkable. IMPRESSION: Multiple bilateral renal T2 hyperintense lesions, likely cysts, measuring up to 3.3 cm. No definite right renal inferior pole mass visualized. However evaluation is very limited due to motion and without intravenous contrast. Recommend renal ultrasound for further evaluation. Colonic diverticulosis without evidence of diverticulitis. Under distended bladder, demonstrating wall thickening. A small right posterior bladder diverticulum visualized. Signed by: Dr. Ld Alarcon MD on 10/21/2018 3:45 PM
== END ==
LOC: MRI 08:49
PROVIDERS: ATTEND Urology
DX: R31.0 Gross hematuria (principal)
CPT/HCPCS: 72195; 74181

== ENCOUNTER → 2019-08-16 | Outpatient (CLI) | payer MEDICARE ==
--- NOTE | 2019-08-16 12:48 | Diagnostic Imaging Report ---
EXAM: Renal Ultrasound INDICATION: ^[id number] ^[id number] ^GROSS HEMATURIA COMPARISON: None TECHNIQUE: Transverse and longitudinal images of the kidneys and bladder were obtained. FINDINGS: Right Kidney: Length: 9.9 cm Appearance: Normal echogenicity. Collecting system: No hydronephrosis Stones: None Cyst/Mass: Upper pole 2.5 x 2.2 x 2.4 cm anechoic simple cyst. Left Kidney: Length: 10.2 cm Appearance: Normal echogenicity. Collecting system: No hydronephrosis Stones: None Cyst/Mass: Upper pole 2.6 x 2.9 x 2.6 cm anechoic simple cyst. Bladder: Empty bladder limits evaluation. The patient voided prior to the exam. IMPRESSION: No hydronephrosis or renal calculi. Bilateral simple renal cysts. Decompressed bladder limits evaluation. Signed by: Jo Clay MD on 08/16/2019 12:45 PM
== END ==
LOC: US 11:49
PROVIDERS: ATTEND Urology
DX: R31.0 Gross hematuria (principal)
CPT/HCPCS: 76770

== ENCOUNTER 2019-08-24 09:37 | Emergency (ER) | payer MEDICARE ==
[~2019-08-24] VITALS: Ht 188 cm; Wt 88.9 kg
[2019-08-24 10:18] LABS: BASOPHILS # (AUTO) 0.1 (0.0-0.1); EOSINOPHILS # (AUTO) 0.1 (0.0-0.4); EOSINOPHILS % 2.1 % (0.0-6.0); LYMPHOCYTES # (AUTO) 1.6 (1.0-3.2); LYMPHOCYTES % 29.8 % (18.0-39.1); MEAN CORPUSCULAR HEMOGLOBIN 31.6 pg (28-32); MEAN CORPUSCULAR HGB CONC 33.3 g/dL (31-35); MEAN CORPUSCULAR VOLUME 94.7 fL (81-99); MONOCYTES # (AUTO) 0.5 (0.2-0.8); MONOCYTES % 10.2 % (4.4-11.3); NEUTROPHILS # (AUTO) 2.9 (2.1-6.9); NEUTROPHILS % 56.3 % (38.7-80.0); PLATELET COUNT 229 x10e3/uL (140-360); RED CELL DISTRIBUTION WIDTH 13.2 % (11.7-14.4)
[2019-08-24 10:32] LABS: CLARITY,URINE TURBID (CLEAR); COLOR,URINE RED (YELLOW)
[2019-08-24 10:33] LABS: KETONES,URINE 3+ (NEGATIVE); LEUKOCYTE ESTERASE ,URINE LARGE (NEGATIVE); NITRITE,URINE NEGATIVE (NEGATIVE); PROTEIN,URINE DIPSTICK >=300 (NEGATIVE)
[2019-08-24 10:34] LABS: BILIRUBIN,URINE LARGE (NEGATIVE)
[2019-08-24 10:36] LABS: ALBUMIN 3.8 g/dL (3.5-5.0); ALBUMIN/GLOBULIN RATIO 1.2 (0.8-2.0); ANION GAP 13.5 mmol/L (8-16); CALCIUM 9.7 mg/dL (8.4-10.2); CREATININE, SERUM 1.82 mg/dL (0.72-1.25); POTASSIUM 4.5 mmol/L (3.5-5.1)
[2019-08-24 10:59] LABS: BACTERIA,URINE FEW /HPF; EPITHELIAL CELLS,URINE FEW /LPF; RBC,URINE >50 /HPF (0-5); WBC,URINE (MAN) >50 /HPF (0-5)
--- NOTE | 2019-08-24 11:13 | Diagnostic Imaging Report ---
CT of the abdomen and pelvis, without contrast. History: Hematuria. Comparison: Renal ultrasound from 08/16/2019, MRI from 10/21/2018, CT abdomen/pelvis without contrast from 07/23/2018. Technique: Multidetector CT scanning of the abdomen and pelvis was performed from the level of the lung bases to the inferior pubic rami without the use of contrast. Coronal and sagittal multiplanar reformations were obtained. RADIATION DOSE: Total DLP: 703.77 mGy*cm Dose modulation, iterative reconstruction, and/or weight based adjustment of the mA/kV was utilized to reduce the radiation dose to as low as reasonably achievable. FINDINGS: The lung bases are grossly unremarkable. The liver is normal in size and attenuation with scattered granulomatous calcifications. The gallbladder is unremarkable. There is no biliary ductal dilatation. The stomach, spleen, pancreas, and right adrenal gland demonstrate an unremarkable noncontrast appearance. There is a 1.1 cm left adrenal nodule with attenuation values compatible with a benign adenoma, unchanged from prior examinations. The kidneys are normal in size and location. There are multiple hypodensities present bilaterally likely reflecting cysts and better characterized on prior ultrasound and MRI examinations. The largest measures up to 3.2 cm and is located within the left upper pole. A stable 4 mm area of calcification is identified adjacent to a cyst within the upper pole the right kidney which likely reflects a small amount peripheral calcification. No other renal stones/calcifications are identified. There is no evidence for hydronephrosis. No ureteral stone or dilatation is appreciated. There is asymmetrical wall thickening and/or debris identified along the posterior wall of the urinary bladder. The prostate is grossly unremarkable. The abdominal ureters normal in course and caliber with after cirrhotic calcifications. The IVC is normal in caliber. Please note evaluation the bowel is limited without the use of enteric contrast material. The visualized loops of small and large bowel demonstrate no evidence of obstruction or inflammation. Extensive diverticula are noted throughout the colon. There is no ascites or intraperitoneal free air. No abnormally enlarged lymph nodes are identified within the abdomen or pelvis. Tiny fat-containing umbilical hernia noted. Left greater than right sided fat-containing inguinal hernias noted. There are multilevel degenerative changes of the thoracolumbar spine. The osseous structures otherwise demonstrate no evidence for acute fracture or destructive process. IMPRESSION: 1. Wall thickening and/or debris noted along the posterior wall the urinary bladder. Findings may reflect blood products in this patient with reported hematuria. However, a bladder wall lesion cannot be entirely excluded on the basis of this examination. 2. Bilateral renal hypodensities likely reflecting cysts. Subcentimeter calcification noted within the right kidney likely reflecting a cyst with thin peripheral calcification. No evidence for nephrolithiasis, hydronephrosis, or obstructive uropathy. 3. Diverticulosis coli without evidence for acute diverticulitis. 4. Additional stable findings as above. Signed by: Dr. Royce Lawton MD on 08/24/2019 11:09 AM
== END 2019-08-24 12:01 | disposition home or self-care (01) ==
LOC: ER 09:37
DX: N30.01 Acute cystitis with hematuria (principal); N28.1 Cyst of kidney, acquired
CPT/HCPCS: 36415; 74176; 80053; 81001; 85025; 87086; 99284

== ENCOUNTER → 2019-09-24 | Day surgery (SDC) | payer MEDICARE, OTHER ==
[2019-09-21 17:54] LABS: BASOPHILS # (AUTO) 0.1 (0.0-0.1); BASOPHILS % 0.9 % (0.0-1.0); EOSINOPHILS # (AUTO) 0.3 (0.0-0.4); EOSINOPHILS % 3.5 % (0.0-6.0); HEMATOCRIT 38.3 % (38.2-49.6); HEMOGLOBIN 12.2 g/dL (14.0-18.0); LYMPHOCYTES # (AUTO) 2.1 (1.0-3.2); LYMPHOCYTES % 22.8 % (18.0-39.1); MEAN CORPUSCULAR HEMOGLOBIN 30.2 pg (28-32); MEAN CORPUSCULAR HGB CONC 31.9 g/dL (31-35); MEAN CORPUSCULAR VOLUME 94.8 fL (81-99); MONOCYTES % 10.3 % (4.4-11.3); NEUTROPHILS # (AUTO) 5.7 (2.1-6.9); NEUTROPHILS % 61.6 % (38.7-80.0); PLATELET COUNT 255 x10e3/uL (140-360); RED BLOOD COUNT 4.04 x10e6/uL (4.3-5.7); RED CELL DISTRIBUTION WIDTH 13.3 % (11.7-14.4)
--- NOTE | 2019-09-21 18:07 | Diagnostic Imaging Report ---
EXAMINATION: CHEST 2 VIEWS INDICATION: ^PREOP ^[id number] ^[id number] COMPARISON: 04/12/2018. FINDINGS: TUBES and LINES: None. LUNGS: Lungs are well inflated. Lungs are clear. There is no evidence of pneumonia or pulmonary edema. PLEURA: No pleural effusion or pneumothorax. HEART AND MEDIASTINUM: The cardiomediastinal silhouette is unremarkable. There are atherosclerotic calcifications within the aorta. Surgical clips projected on the superior mediastinum. BONES AND SOFT TISSUES: No acute osseous lesion. Degenerative changes of the right shoulder joint with elevation of the right humeral head suggestive of chronic rotator cuff pathology. Degenerative changes of the thoracic spine. UPPER ABDOMEN: No free air under the diaphragm. IMPRESSION: No acute thoracic abnormality. Signed by: Dr. Jessica Sheikh M.D. on 09/21/2019 6:04 PM
[2019-09-21 18:09] LABS: ANION GAP 13.5 mmol/L (8-16); CALCIUM 9.7 mg/dL (8.4-10.2); CREATININE, SERUM 2.1 mg/dL (0.72-1.25); POTASSIUM 4.5 mmol/L (3.5-5.1)
[~2019-09-24] MED LIST changes: +B&O 60MG R/S 60 MG SUPP PR ONE; +ETOMIDATE 2 MG/ML 10 ML INJ IV ONE; +FENTANYL CITRATE/PF 100MCG/2 ML INJ ONE; +IOPAMIDOL 300MG/ML 50ML INFUS..BTL IV ONE; +LEVOFLOXACIN 250MG/D5W 50ML 50 ML ONE; +LIDOCAINE HCL 2% LOCAL INJ 5 ML SDV VIAL INJ ONE; +SERTRALINE HCL50 MG PO; +SEVOFLURANE INHAL SOLN 250 ML PEN BTL ONE
[2019-09-24 11:05] VITALS: BP 142/68
--- NOTE | 2019-09-24 15:44 | Diagnostic Imaging Report ---
OR Fluoroscopy: IMPRESSION: Fluoroscopy service provided in the OR. Interpretation not requested. Signed by: Wilder Rudolph MD on 09/24/2019 3:40 PM
--- NOTE | 2019-09-26 21:55 | Operative Report ---
DATE OF PROCEDURE: 09/24/2019 SURGEON: Manuel Reyna MD PREOPERATIVE DIAGNOSES: 1. Gross hematuria. 2. Chronic renal insufficiency. 3. Urinary tract infections. POSTOPERATIVE DIAGNOSES: 1. Gross hematuria. 2. Chronic renal insufficiency. 3. Urinary tract infections. 4. Bladder diverticula. OPERATIONS PERFORMED: 1. Cystourethroscopy with bilateral ureteral catheterization and retrograde ureteropyelography. 2. Interpretation of retrograde ureteropyelography. 3. Supervision of fluoroscopy, no radiologist present. 4. Interpretation of cystography, no radiologist present. ANESTHESIA: General. COMPLICATIONS: None. CLINICAL SUMMARY: Jose Juan Barbour is a complicated 89-year-old man with prostate cancer. The patient has had recurrent bouts of gross hematuria. Prior to management of his cancer, he had a transurethral resection of the prostate. The patient has not had problems with lower tract obstructive symptoms, although he has had severely overactive bladder. The patient has had gross hematuria before and hemorrhagic cystitis before and wants to proceed with hyperbaric oxygen therapy for management. The patient had another bout of gross hematuria and was brought to the operating room today for evaluation. The patient definitely needs to proceed with hyperbaric oxygen therapy in hopes of decreasing his gross hematuria episode, which required multiple hospitalizations and numerous ER visits. OPERATIVE PROCEDURE IN DETAIL: Informed consent was verified. Jose Juan Barbour was properly identified, taken to the operating room and placed on the cystoscopy table in supine position. Anesthesia was uneventfully begun. The patient was then carefully and gently repositioned in dorsal lithotomy position with all pressure points were well padded. His genitalia were prepared and draped in usual sterile fashion. The cystoscope sheath with the visual obturator in place was atraumatically inserted into the patient's urethra, it was guided down to the relatively unremarkable. Distal urethra through the normal sphincteric region through the prostate bed, which was significant for being wide open status post transurethral prostatectomy. There was minimal amount of erythema, most notably from the left lateral prostatic urethra. We entered the patient's bladder, where there were obvious signs of hemorrhagic cystitis. No tumors, no suspicious lesions were identified. Heavy trabeculations were noted as well. Ureteral catheter was used to cannulate each ureter and retrograde pyelograms were performed. Interpretation of retrograde ureteropyelography contrast was instilled in retrograde fashion bilaterally. There were no tumors and no stones in the upper tract diverticula. Unobstructed drainage was observed fluoroscopically. There were multiple small diverticula, but there was one was more prominent off the right lateral wall; therefore, a cystogram was indicated. The cystoscope was withdrawn. A Benitez catheter was then placed, it was irrigated to and fro to ensure it worked properly. Contrast was injected in retrograde fashion by the Benitez catheter. Vesicoureteric reflux cannot be judged. There is a cavity due to the patient's previous transurethral prostatectomy, which is wide open and should not cause any voiding obstruction. There was a small diverticulum, heavy trabeculations, but there was one larger diverticulum off the right side of the bladder. The Benitez catheter balloon was in excellent position. The bladder was draining properly. Belladonna and opium suppository were placed, revealing a flat prostate without any obvious nodules. The patient was then uneventfully reversed from anesthesia and taken to recovery room in stable condition. No complications to the procedure. He tolerated the procedure well. Explicit postoperative instructions were given. Plans will be to follow the patient up in the office in approximately 10 days to remove his Benitez catheter. The patient needs hyperbaric oxygen therapy. The patient has post radiation hemorrhagic cystitis, there is required numerous hospitalizations in form or emergency room visits. The patient needs to undergo at least a month of hyperbaric oxygen therapy to see whether that modality will help decrease his problems and complications from this is very challenging to manage condition. Manuel Reyna MD [place]/MODL /[id number]
== END | disposition home or self-care (01) ==
LOC: OR 07:12
PROVIDERS: ATTEND Urology
DX: N30.41 Irradiation cystitis with hematuria (principal); C61 Malignant neoplasm of prostate; N32.3 Diverticulum of bladder; N32.89 Other specified disorders of bladder; E11.22 Type 2 diabetes mellitus with diabetic chronic kidney disease; I12.9 Hypertensive chronic kidney disease with stage 1 through stage 4 chronic kidney disease, or unspecified chronic kidney disease; N18.9 Chronic kidney disease, unspecified; G47.33 Obstructive sleep apnea (adult) (pediatric); I44.0 Atrioventricular block, first degree; F03.90 Unspecified dementia, unspecified severity, without behavioral disturbance, psychotic disturbance, mood disturbance, and anxiety; F41.9 Anxiety disorder, unspecified; Z88.6 Allergy status to analgesic agent; Z88.1 Allergy status to other antibiotic agents; Z01.810 Encounter for preprocedural cardiovascular examination; Z01.812 Encounter for preprocedural laboratory examination; Z01.818 Encounter for other preprocedural examination; Z11.59 Encounter for screening for other viral diseases; Z79.84 Long term (current) use of oral hypoglycemic drugs; Z98.890 Other specified postprocedural states; Z87.891 Personal history of nicotine dependence
CPT/HCPCS: 36415 ×2; 52005; 71046; 74420; 80048; 82948; 85025; 87635; 93005; C1758; J1956; J2001; J3010; Q9967

== ENCOUNTER 2019-10-04 18:59 | Emergency (ER) | payer MEDICARE, OTHER ==
[~2019-10-04] VITALS: Ht 188 cm; Wt 88.9 kg
[~2019-10-04 18:59] MED LIST changes: -B&O 60MG R/S 60 MG SUPP PR ONE; -ETOMIDATE 2 MG/ML 10 ML INJ IV ONE; -FENTANYL CITRATE/PF 100MCG/2 ML INJ ONE; -IOPAMIDOL 300MG/ML 50ML INFUS..BTL IV ONE; -LEVOFLOXACIN 250MG/D5W 50ML 50 ML ONE; -LIDOCAINE HCL 2% LOCAL INJ 5 ML SDV VIAL INJ ONE; -SEVOFLURANE INHAL SOLN 250 ML PEN BTL ONE
--- NOTE | 2019-10-04 22:55 | NUR ---
Irrigation attempted. Unable to irrigate all clots. ER MD notifed.
[2019-10-04] MEDS ORDERED: LIDOCAINE JELLY 2% 10ML URO-JET ONE (23:08)
[2019-10-04] MEDS ORDERED: LIDOCAINE JELLY 2% 10ML URO-JET TOP ONE (23:15)
--- NOTE | 2019-10-04 23:27 | NUR ---
aporx 20 mL of dark red urine noted with catheter insertion. Bladder scan revealed 47 mL of urine. ER notified.
[2019-10-05 00:40] LABS: CLARITY,URINE CLOUDY (CLEAR); COLOR,URINE RED (YELLOW); KETONES,URINE NEGATIVE (NEGATIVE); LEUKOCYTE ESTERASE ,URINE TRACE (NEGATIVE); NITRITE,URINE NEGATIVE (NEGATIVE); PROTEIN,URINE DIPSTICK >=300 (NEGATIVE)
[2019-10-05 00:41] LABS: BACTERIA,URINE FEW /HPF; BILIRUBIN,URINE NEGATIVE (NEGATIVE); EPITHELIAL CELLS,URINE FEW /LPF; RBC,URINE >50 /HPF (0-5); URINE UROBILINOGEN 0.2 mg/dL (0.2 - 1)
--- NOTE | 2019-10-05 01:00 | Diagnostic Imaging Report ---
EXAM: CT Abdomen and Pelvis WITHOUT contrast INDICATION: Hematuria COMPARISON: Abdominal CT 08/24/2019, Report from Abdominal CT 03/06/2009 TECHNIQUE: Abdomen and pelvis were scanned utilizing a multidetector helical scanner from the lung base to the pubic symphysis without administration of IV contrast. Absence of intravenous contrast decreases sensitivity for detection of focal lesions and vascular pathology. Coronal and sagittal reformations were obtained. Routine protocol was performed. IV CONTRAST: None ORAL CONTRAST: None COMPLICATIONS: None RADIATION DOSE: Total DLP: 676 mGy*cm Estimated effective dose: (DLP x 0.015 x size factor) mSv CTDIvol has been reviewed. It is below the limits set by the Radiation Protocol Committee (RPC). Dose modulation, iterative reconstruction, and/or weight based adjustment of the mA/kV was utilized to reduce the radiation dose to as low as reasonably achievable. FINDINGS: LINES and TUBES: Urinary bladder Benitez catheter in place, tip in the bladder lumen. LOWER THORAX: Unremarkable HEPATOBILIARY: No focal hepatic lesions. No biliary ductal dilation. GALLBLADDER: No radio-opaque stones or sludge. No wall thickening. SPLEEN: No splenomegaly. PANCREAS: No focal masses or ductal dilatation. ADRENALS: No adrenal nodules KIDNEYS/URETERS: Multiple small bilateral renal cysts, largest is in the right renal superior pole measures 2.7 cm, similar compared to 08/24/2019. No hydronephrosis. No stones. GI TRACT: No abnormal distention, wall thickening, or evidence of bowel obstruction. Colonic diverticulosis. Appendix is normal. PELVIC ORGANS/BLADDER: Urinary bladder Benitez catheter in place, tip and retention balloon in the bladder lumen. LYMPH NODES: No lymphadenopathy. VESSELS: Arterial calcifications. PERITONEUM / RETROPERITONEUM: No free air or fluid. BONES: Degenerative changes. Osseous demineralization. SOFT TISSUES: Fat-containing left inguinal hernia. IMPRESSION: 1. Urinary bladder Benitez catheter in place, tip and retention balloon in the bladder lumen. 2. Slightly complex right renal cyst is similar compared to the description from 2009 CT report , likely benign. 3. Colonic diverticulosis without evidence of acute diverticular as. Signed by: Constantino Stewart DO on 10/05/2019 12:57 AM
--- NOTE | 2019-10-05 01:03 | NUR ---
Benitez irrigated again at this time with approx 500mL. Small clots noted. ER notified.
--- NOTE | 2019-10-05 01:03 | Emergency Department Note ---
History of Present Illnes History of Present Illness Chief Complaint: Genitourinary History of Present Illness This is a 89 year old male presents with complaint of pulling catheter not draining for the last few hours. Tatgris is leaking urine around the catheter. States his doctor is Dr. Reyna. Denies fever chills abdominal pain. States has had hematuria over the last couple days.. Historian: Patient Arrival Mode: Car Onset (how long ago): hour(s) (5) Location: [facility] Quality: GOLDBERG NOT DRAINING, BLOOD IN URINE Radiation: Reports non-radiation Severity: moderate Onset quality: sudden Duration (how long): hour(s) (5) Timing of current episode: constant Progression: unchanged Chronicity: recurrent Context: Reports recent surgery (TURP LAST WEEK) Relieving factors: none Exacerbating factors: none Associated symptoms: Reports denies other symptoms Past Medical/Family History Physician Review I have reviewed the patient's past medical and family history. Any updates have been documented here. Past Medical History Recent Fever: No Clinical Suspicion of Infectio: No New/Unexplained Change in Ment: No Past Medical History: Hypertension, Diabetes, Asthma, Cancer, Kidney Stones, Anxiety, GERD, Hyperlipedemia, Osteoarthritis Other Medical History: bilateral shoulder, hernia, Past Surgical History: Appendectomy, T&A, Hernia Repair, Cataract Removal Other Surgery: kidney stone surgery Parathyroid surgery, turp, hernia removal, right shoulder surgery Social History Smoking Cessation: Unknown if ever smoked Counseling Performed: No Alcohol Use: None Any Illegal Drug Use: No TB Exposure/Symptoms: No Physically hurt or threatened: No Other Last Tetanus: UTD Any Pre-Existing Lines (PICC,: No Is patient up to date on immun: No Last Flu: unk Last Pneumovax: unk Review of Systems Review of Systems Constitutional: Reports no symptoms EENTM: Reports no symptoms Cardiovascular: Reports no symptoms Respiratory: Reports no symptoms Gastrointestinal: Reports no symptoms Genitourinary: Reports as per HPI Musculoskeletal: Reports no symptoms Integumentary: Reports no symptoms Neurological: Reports no symptoms Psychological: Reports no symptoms Endocrine: Reports no symptoms Hematological/Lymphatic: Reports no symptoms Physical Exam Related Data Allergies: Coded Allergies: cephalexin (Verified Allergy, Unknown, 08/24/19) morphine (Verified Allergy, Unknown, 08/24/19) Triage Vital Signs Vital Signs Date Time Temp Pulse Resp B/P (MAP) Pulse Ox O2 Delivery O2 Flow Rate FiO2 10/04/19 19:24 97.5 77 18 154/86 97 Vital signs reviewed: Yes Physical Exam CONSTITUTIONAL Constitutional: Present well-developed, Present well-nourished HENT HENT: Present normocephalic, Present atraumatic, Present oropharynx clear/moist, Present nose normal HENT L/R: Present left ext ear normal, Present right ext ear normal EYES Eyes: Reports PERRL, Reports conjunctivae normal NECK Neck: Present ROM normal PULMONARY Pulmonary: Present effort normal, Present breath sounds normal CARDIOVASCULAR Cardiovascular: Present regular rhythm, Present heart sounds normal, Present capillary refill normal, Present normal rate GASTROINTESTINAL Abdominal: Present soft, Present nontender, Present bowel sounds normal GENITOURINARY Genitourinary: Present other (INDWELLING GOLDBERG IN PLACE, NO URINE DRAINING) SKIN Skin: Present warm, Present dry MUSCULOSKELETAL Musculoskeletal: Present ROM normal NEUROLOGICAL Neurological: Present alert, Present oriented x 3, Present no gross motor or sensory deficits PSYCHOLOGICAL Psychological: Present mood/affect normal, Present judgement normal Results Laboratory Laboratory Laboratory Tests Test 10/04/19 23:30 Urine Color Red (YELLOW) Urine Clarity Cloudy (CLEAR) Urine pH 6.5 (5 - 7) Urine Specific [place] >=1.030 (1.010-1.025) Urine Protein >=300 (NEGATIVE) Urine Glucose (UA) Negative (NEGATIVE) Urine Ketones Negative (NEGATIVE) Urine Blood 4+ (NEGATIVE) Urine Nitrite Negative (NEGATIVE) Urine Bilirubin Negative (NEGATIVE) Urine Urobilinogen 0.2 mg/dL (0.2 - 1) Urine Leukocyte Esterase Trace (NEGATIVE) Urine RBC >50 /HPF (0-5) Urine WBC 6-10 /HPF (0-5) Urine Epithelial Cells Few /LPF (NONE) Urine Bacteria Few /HPF (NONE) Lab results reviewed: Yes Imaging Imaging results reviewed: Yes Impressions CT ABD/PELVIS IMPRESSION: 1. Urinary bladder Goldberg catheter in place, tip and retention balloon in the bladder lumen. 2. Slightly complex right renal cyst is similar compared to the description from 2009 CT report , likely benign. 3. Colonic diverticulosis without evidence of acute diverticular as. Assessment & Plan Medical Decision Making MDM Patient with clogged Goldberg catheter we attempted to area catheter unsuccessfully. Spoke with Dr. Reyna states Mitchell hematuria catheter 24 M[place]ese and patient will catheter placed multiple blood clots irrigated out will watch patient and make sure urinary output continues. CT ABD/PELVIS ORDERED TO EVAL FOR LARGE BLOOD CLOT IN BLADDER At 01 50 6 AM patient's urine is now light pink in color no more clots patient will be discharged home follow Dr. Reyna as scheduled. Assessment & Plan Final Impression: (1) Hematuria (2) Urinary retention Last Vital Signs Date Time Temp Pulse Resp B/P (MAP) Pulse Ox O2 Delivery O2 Flow Rate FiO2 10/05/19 00:17 65 18 171/72 100 10/04/19 19:24 97.5 Home Meds Active Scripts Famotidine (FAMOTIDINE) 20 Mg Tab, 20 MG PO BIDAC for 30 Days, TAB Prov:JOSÉ MIGUEL COWAN MD 12/23/17 Reported Medications Sertraline Hcl (SERTRALINE HCL) 50 Mg Tablet, 50 MG PO HS, #30 TAB 09/22/19 Rosuvastatin Calcium (CRESTOR) 10 Mg Tab, 10 MG PO HS THERAPEUTICALLY SUBSTITUTED WITH SIMVASTATIN 40MG 02/28/18 Tolterodine Tartrate (DETROL LA) 4 Mg Cap.er.24h, 4 MG PO DAILY, #30 CAP 12/21/17 Dutasteride (AVODART) 0.5 Mg Capsule, 0.5 MG PO DAILY, #30 CAP 12/21/17 Furosemide (FUROSEMIDE) 20 Mg Tablet, 20 MG PO BID 12/21/17 Linagliptin (TRADJENTA) 5 Mg Tablet, 5 MG PO DAILY 12/21/17 Allopurinol (ALLOPURINOL) 300 Mg Tablet, 300 MG PO DAILY, #30 TAB 12/21/17 Medications in the ED Lidocaine HCl 10 ml STK-MED ONCE .ROUTE ; Start 10/04/19 at 23:08; Stop 10/04/19 at 23:02; Status DC Lidocaine HCl 10 ml ONCE ONCE TOP Last administered on 10/04/19at 23:15; Admin Dose 10 ML; Start 10/04/19 at 23:15; Stop 10/04/19 at 23:16; Status DC PAPI OWENS MD Oct 05, 2019 01:03
--- NOTE | 2019-10-05 01:54 | NUR ---
No further clots noted at this time. Patient has areli-aid colored urine at this time. ER MD aware.
[2019-10-05 01:56] VITALS: BP 158/86
== END 2019-10-05 02:13 | disposition home or self-care (01) ==
LOC: ER 18:59
DX: Z46.6 Encounter for fitting and adjustment of urinary device (principal); R33.9 Retention of urine, unspecified; R31.9 Hematuria, unspecified; I10 Essential (primary) hypertension; E11.9 Type 2 diabetes mellitus without complications; E78.5 Hyperlipidemia, unspecified; K21.9 Gastro-esophageal reflux disease without esophagitis
CPT/HCPCS: 51700; 74176; 81001; 87086; 99284

== ENCOUNTER 2019-10-11 11:47 | Inpatient (IN) | payer MEDICARE, OTHER ==
[~2019-10-11] VITALS: Ht 188 cm; Wt 88.9 kg
--- NOTE | 2019-10-11 13:33 | NUR ---
GOLDBERG TO LEG BAG CAME IN WITH. NOTED HEMATURIA. HX OF CHRONIC HEMATURIA. PT HAD UNK PROCEDURE 2 WKS AGO BY [facility].
[2019-10-11 14:16] LABS: BASOPHILS # (AUTO) 0.1 (0.0-0.1); BASOPHILS % 0.6 % (0.0-1.0); EOSINOPHILS # (AUTO) 0.2 (0.0-0.4); EOSINOPHILS % 3.1 % (0.0-6.0); HEMATOCRIT 35.5 % (38.2-49.6); HEMOGLOBIN 11.4 g/dL (14.0-18.0); LYMPHOCYTES # (AUTO) 1.6 (1.0-3.2); MEAN CORPUSCULAR HEMOGLOBIN 30.5 pg (28-32); MEAN CORPUSCULAR HGB CONC 32.1 g/dL (31-35); MEAN CORPUSCULAR VOLUME 94.9 fL (81-99); MONOCYTES # (AUTO) 0.7 (0.2-0.8); MONOCYTES % 8.7 % (4.4-11.3); NEUTROPHILS # (AUTO) 5.2 (2.1-6.9); NEUTROPHILS % 67.1 % (38.7-80.0); PLATELET COUNT 238 x10e3/uL (140-360); RED BLOOD COUNT 3.74 x10e6/uL (4.3-5.7); RED CELL DISTRIBUTION WIDTH 13.5 % (11.7-14.4)
[2019-10-11 14:21] LABS: INR 1.03; PROTHROMBIN TIME 14.1 seconds (11.9-14.5)
[2019-10-11 14:31] LABS: ALBUMIN 3.7 g/dL (3.5-5.0); ALBUMIN/GLOBULIN RATIO 1.2 (0.8-2.0); ANION GAP 11.7 mmol/L (8-16); CALCIUM 9.7 mg/dL (8.4-10.2); CREATININE, SERUM 1.76 mg/dL (0.72-1.25); POTASSIUM 4.7 mmol/L (3.5-5.1)
--- NOTE | 2019-10-11 15:03 | NUR ---
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 Walker placed; PAST MEDICAL HISTORY: Prostate cancer, status post radiation therapy about 10 years ago, radiation cystitis with hematuria, diabetes mellitus type 2, hypertension, cigarette use, Hematuria due to radiation cystitis, acute respiratory failure, CKD3 PAST SURGICAL HISTORY: Appendectomy, hernia repair. ALLERGIES: PER ELECTRONIC MEDICAL RECORD. FAMILY HISTORY/SOCIAL HISTORY: Patient is . He has 6 children. No illicit, alcohol. Remote history of smoking. MEDICATIONS: Per electronic medical record. REVIEW OF SYSTEMS: Denies any dizziness, chest pain, shortness of breath, fever, chills, nausea, vomiting, diarrhea, leg pain, back pain, headache, blurred vision. PHYSICAL EXAMINATION VITAL SIGNS: Reviewed. GENERAL: A tired-appearing man resting in bed. HEENT: Anicteric. Pupils react to light. No oral lesions. CARDIOVASCULAR: Normal S1, S2. He has a 3/6 systolic murmur most prominent in the left chest wall. LUNGS: Moderate breath sounds. ABDOMEN: Soft, nontender. : walker with pink colored urine EXTREMITIES: No edema. SKIN: Dry. PSYCHIATRIC: Flat affect. NEUROLOGIC: Alert and oriented times 3. Moving all extremities. LABS: Reviewed. MEDICATIONS: Reviewed. ASSESSMENT AND PLAN: An 87-year-old man. Hematuria- no antiplateletes/AC; urology consult; walker for irrigation Hx Radiation cystitis Hx Right renal stone- non-obx Hx Right renal mass CKD3 due to DM2- as baseline; check hab1c/lipids Hx prostate cancer HTN- monitor BP HLD- cont statin Prop: scd; pepcid dispo: f/u urology; f/u studies and blood cts. Vidal Samson MD, PhD.
[2019-10-11] MEDS ORDERED: LIDOCAINE HCL 2% JELLY 5 ML TUBE ONE (15:07)
[2019-10-11 16:05] LABS: FERRITIN 30.04 ng/mL (21.81-274.66)
[2019-10-11] MEDS ORDERED: FAMOTIDINE 20 MG TAB PO SCH (16:30)
--- NOTE | 2019-10-11 16:40 | Emergency Department Note ---
History of Present Illnes History of Present Illness Chief Complaint: Genitourinary History of Present Illness This is a 89 year old male arrives to the ED with complaints of hematuria. Patient states he suffers from this intermittently. Chief Complaint Comment HERE FOR CHRONIC BLOOD IN URINE, WAS ADVISED BY DR. NIELSEN TO COME TO ER FOR EVALUATION. Historian: Patient Arrival Mode: Car History limited by: developmental delay Onset (how long ago): day(s) Severity: mild Onset quality: gradual Duration (how long): day(s) Timing of current episode: intermittent Progression: worsening Chronicity: recurrent Relieving factors: none Past Medical/Family History Physician Review I have reviewed the patient's past medical and family history. Any updates have been documented here. Past Medical History Recent Fever: No Clinical Suspicion of Infectio: No New/Unexplained Change in Ment: No Past Medical History: Hypertension, Diabetes, Asthma, Cancer, Kidney Stones, Anxiety, GERD, Hyperlipedemia, Osteoarthritis Other Medical History: bilateral shoulder, hernia, Past Surgical History: Appendectomy, T&A, Hernia Repair, Cataract Removal Other Surgery: kidney stone surgery Parathyroid surgery, turp, hernia removal, right shoulder surgery Social History Smoking Cessation: Unknown if ever smoked Counseling Performed: No Alcohol Use: None Any Illegal Drug Use: No TB Exposure/Symptoms: No Physically hurt or threatened: No Other Last Tetanus: UTD Last Flu: Y Last Pneumovax: Y Review of Systems Review of Systems Constitutional: Reports no symptoms EENTM: Reports no symptoms Cardiovascular: Reports no symptoms Respiratory: Reports no symptoms Gastrointestinal: Reports no symptoms Genitourinary: Reports as per HPI, Reports hematuria Musculoskeletal: Reports no symptoms Integumentary: Reports no symptoms Neurological: Reports no symptoms Psychological: Reports no symptoms Endocrine: Reports no symptoms Hematological/Lymphatic: Reports no symptoms Physical Exam Related Data Allergies: Coded Allergies: cephalexin (Verified Allergy, Unknown, 08/24/19) morphine (Verified Allergy, Unknown, 08/24/19) Triage Vital Signs Vital Signs Date Time Temp Pulse Resp B/P (MAP) Pulse Ox O2 Delivery O2 Flow Rate FiO2 10/11/19 12:09 98.4 84 18 172/93 99 Vital signs reviewed: Yes Physical Exam CONSTITUTIONAL Constitutional: Present well-developed, Present well-nourished HENT HENT: Present normocephalic, Present atraumatic, Present oropharynx clear/moist, Present nose normal HENT L/R: Present left ext ear normal, Present right ext ear normal EYES Eyes: Reports PERRL, Reports conjunctivae normal NECK Neck: Present ROM normal PULMONARY Pulmonary: Present effort normal, Present breath sounds normal CARDIOVASCULAR Cardiovascular: Present regular rhythm, Present heart sounds normal, Present capillary refill normal, Present normal rate GASTROINTESTINAL Abdominal: Present soft, Present nontender, Present bowel sounds normal GENITOURINARY Genitourinary: Present exam deferred SKIN Skin: Present warm, Present dry MUSCULOSKELETAL Musculoskeletal: Present ROM normal NEUROLOGICAL Neurological: Present alert, Present oriented x 3, Present no gross motor or sensory deficits PSYCHOLOGICAL Psychological: Present mood/affect normal, Present judgement normal Results Laboratory Result Diagram: 10/11/19 1400 10/11/19 1400 Laboratory Laboratory Tests Test 10/11/19 14:00 White Blood Count 7.79 x10e3/uL (4.8-10.8) Red Blood Count 3.74 x10e6/uL (4.3-5.7) Hemoglobin 11.4 g/dL (14.0-18.0) Hematocrit 35.5 % (38.2-49.6) Mean Corpuscular Volume 94.9 fL (81-99) Mean Corpuscular Hemoglobin 30.5 pg (28-32) Mean Corpuscular Hemoglobin Concent 32.1 g/dL (31-35) Red Cell Distribution Width 13.5 % (11.7-14.4) Platelet Count 238 x10e3/uL (140-360) Neutrophils (%) (Auto) 67.1 % (38.7-80.0) Lymphocytes (%) (Auto) 20.0 % (18.0-39.1) Monocytes (%) (Auto) 8.7 % (4.4-11.3) Eosinophils (%) (Auto) 3.1 % (0.0-6.0) Basophils (%) (Auto) 0.6 % (0.0-1.0) Neutrophils # (Auto) 5.2 (2.1-6.9) Lymphocytes # (Auto) 1.6 (1.0-3.2) Monocytes # (Auto) 0.7 (0.2-0.8) Eosinophils # (Auto) 0.2 (0.0-0.4) Basophils # (Auto) 0.1 (0.0-0.1) Absolute Immature Granulocyte (auto 0.04 x10e3/uL (0-0.1) Prothrombin Time 14.1 seconds (11.9-14.5) Prothromb Time International Ratio 1.03 Sodium Level 139 mmol/L (136-145) Potassium Level 4.7 mmol/L (3.5-5.1) Chloride Level 108 mmol/L (98-107) Carbon Dioxide Level 24 mmol/L (22-29) Anion Gap 11.7 mmol/L (8-16) Blood Urea Nitrogen 26 mg/dL (7-26) Creatinine 1.76 mg/dL (0.72-1.25) Estimat Glomerular Filtration Rate 37 ML/MIN (60-) BUN/Creatinine Ratio 15 (6-25) Glucose Level 166 mg/dL (74-118) Hemoglobin A1c Percent 7.1 % (4.0-7.0) Calcium Level 9.7 mg/dL (8.4-10.2) Iron Level 94 ug/dL (65-175) Total Iron Binding Capacity 402 ug/dL (261-478) Percent Iron Saturation 23 % (15-50) Transferrin 287 mg/dL (174-364) Ferritin 30.04 ng/mL (21.81-274.66) Total Bilirubin 0.9 mg/dL (0.2-1.2) Aspartate Amino Transf (AST/SGOT) 12 IU/L (5-34) Alanine Aminotransferase (ALT/SGPT) 9 IU/L (0-55) Alkaline Phosphatase 83 IU/L (40-150) Total Protein 6.9 g/dL (6.5-8.1) Albumin 3.7 g/dL (3.5-5.0) Globulin 3.2 g/dL (2.3-3.5) Albumin/Globulin Ratio 1.2 (0.8-2.0) Triglycerides Level 110 MG/DL (0-149) Cholesterol Level 133 MD/DL (0-199) LDL Cholesterol 78 MG/DL (60-130) HDL Cholesterol 33 MG/DL (40-60) Cholesterol/HDL Ratio 4.0 (3.9-4.7) Lab results reviewed: Yes Assessment & Plan Medical Decision Making MDM 89-year-old male arrives with complaints of hematuria, urology consult. Benitez catheter inserted and CBI initiated. Assessment & Plan Final Impression: (1) Hematuria Depart Disposition: ADMITTED Last Vital Signs Date Time Temp Pulse Resp B/P (MAP) Pulse Ox O2 Delivery O2 Flow Rate FiO2 10/11/19 13:50 62 16 100 10/11/19 12:09 98.4 172/93 Home Meds Active Scripts Famotidine (FAMOTIDINE) 20 Mg Tab, 20 MG PO BIDAC for 30 Days, TAB Prov:JOSÉ MIGUEL COWAN MD 12/23/17 Reported Medications Sertraline Hcl (SERTRALINE HCL) 50 Mg Tablet, 50 MG PO HS, #30 TAB 09/22/19 Rosuvastatin Calcium (CRESTOR) 10 Mg Tab, 10 MG PO HS THERAPEUTICALLY SUBSTITUTED WITH SIMVASTATIN 40MG 02/28/18 Tolterodine Tartrate (DETROL LA) 4 Mg Cap.er.24h, 4 MG PO DAILY, #30 CAP 12/21/17 Dutasteride (AVODART) 0.5 Mg Capsule, 0.5 MG PO DAILY, #30 CAP 12/21/17 Furosemide (FUROSEMIDE) 20 Mg Tablet, 20 MG PO BID 12/21/17 Linagliptin (TRADJENTA) 5 Mg Tablet, 5 MG PO DAILY 12/21/17 Allopurinol (ALLOPURINOL) 300 Mg Tablet, 300 MG PO DAILY, #30 TAB 12/21/17 KUSUM LOMAS DO Oct 11, 2019 16:40
[2019-10-11 17:11] VITALS: BP 153/77
[2019-10-11 17:27] VITALS: BP 153/77
--- NOTE | 2019-10-11 17:29 | NUR ---
PATIENT ARRIVED ON THE UNIT AT 1635 PER STRETCHER FROM THE ER. PATIENT IS AWAKE, ALERT, AND IN STABLE CONDITION WITH NO S/S OF RESPIRATORY DISTRESS. NO PAIN VOICED AT THIS TIME. GOLDBERG INTACT AND DRAINING; URINE IS RED, NO CLOTS NOTED. BED ALARM APPLIED. PATIENT INSTRUCTED TO CALL FOR ASSISTANCE NEEDED- CALL LIGHT IS WITHIN REACH.
[2019-10-11] MEDS: FUROSEMIDE 20 MG TAB PO SCH (17:34)
[2019-10-11] MEDS: FAMOTIDINE 20 MG/2 ML VIAL IV SCH (17:34)
[2019-10-11 19:31] VITALS: BP 125/86
--- NOTE | 2019-10-11 19:31 | NUR ---
PATIENT IS IN STABLE CONDITION WITH NO S/S OF RESPIRATORY DISTRESS. CONTINUOUS BLADDER IRRIGATION INFUSING. GOLDBERG INTACT AND DRAINING; URINE IS BRIGHT RED IN COLOR WITH SMALL CLOT NOTED. BED ALARM APPLIED. CALL LIGHT IS WITHIN REACH, PATIENT INSTRUCTED TO CALL FOR ASSISTANCE NEEDED. BEDSIDE SHIFT REPORT GIVEN TO ONCOMING NURSE.
--- NOTE | 2019-10-11 20:00 | NUR ---
RECEIVED IN BED AOX3 .PTC/O PAIN AT THE F/C SITE .IRRIGATED THE F/C WITH NS AND NOTED CLOT .PT SAID REDUCED PAIN .F/C DRAINING BLOOD COLORED URINE .CALL LIGHT WITH IN REACH .CONTINUE TO MONITOR
[2019-10-11 20:37] VITALS: BP 153/77
[2019-10-11] MEDS ORDERED: DEXTROSE 50% SYRINGE 50 ML IV PRN ×2 (20:45)
[2019-10-11] MEDS ORDERED: ACETAMINOPHEN 325 MG TAB PO PRN (20:45)
[2019-10-11] MEDS: TRAMADOL HCL 50 MG TAB PO PRN (20:55)
[2019-10-11] MEDS: SIMVASTATIN 20 MG TAB PO SCH (20:55)
[2019-10-11] MEDS: SERTRALINE HCL 50 MG TAB PO SCH (20:55)
[2019-10-11] MEDS: INSULIN REGULAR, HUMAN 100 UNIT/1 ML 3ML VIAL SQ SCH (21:00)
[2019-10-11] MEDS ORDERED: INSULIN REGULAR, HUMAN 100 UNIT/1 ML 3ML VIAL SQ SCH (21:00)
[2019-10-11] MEDS ORDERED: SIMVASTATIN 40 MG TAB PO SCH (21:00)
--- NOTE | 2019-10-11 23:11 | NUR ---
PT C/O PAIN .DR COWAN HAS SEEN THE PT AND GIVEN THE ORDERED TO GIVE TRAMADOL FOR PAIN .CONTINUE THE BLADDER IRRIGATION .CONTINUE TO MONITOR
[2019-10-11 23:40] VITALS: BP 135/85
[2019-10-12] VITALS (7 sets, daily range): BP systolic 118–139; BP diastolic 60–70
[2019-10-12] MEDS: TRAMADOL HCL 50 MG TAB PO PRN ×3 (02:55→21:47)
--- NOTE | 2019-10-12 05:54 | NUR ---
PT C/O PAIN AND GIVEN ORDERED PAIN MEDICATION .IRRIGATED F/C ,NOTED BLOOD CLOT .CALL LIGHT WITH IN REACH .CONTINUE TO MONITOR
[2019-10-12 06:07] LABS: BASOPHILS % 0.4 % (0.0-1.0); EOSINOPHILS # (AUTO) 0.4 (0.0-0.4); EOSINOPHILS % 4.2 % (0.0-6.0); HEMATOCRIT 34.1 % (38.2-49.6); HEMOGLOBIN 11.1 g/dL (14.0-18.0); LYMPHOCYTES # (AUTO) 2.2 (1.0-3.2); LYMPHOCYTES % 25.1 % (18.0-39.1); MEAN CORPUSCULAR HEMOGLOBIN 30.4 pg (28-32); MEAN CORPUSCULAR HGB CONC 32.6 g/dL (31-35); MEAN CORPUSCULAR VOLUME 93.4 fL (81-99); MONOCYTES % 11.2 % (4.4-11.3); NEUTROPHILS # (AUTO) 5.2 (2.1-6.9); NEUTROPHILS % 58.8 % (38.7-80.0); PLATELET COUNT 238 x10e3/uL (140-360); RED BLOOD COUNT 3.65 x10e6/uL (4.3-5.7); RED CELL DISTRIBUTION WIDTH 13.2 % (11.7-14.4)
[2019-10-12 06:45] LABS: ALBUMIN 3.5 g/dL (3.5-5.0); ALBUMIN/GLOBULIN RATIO 1.1 (0.8-2.0); ANION GAP 13.9 mmol/L (8-16); CALCIUM 9.3 mg/dL (8.4-10.2); CREATININE, SERUM 1.68 mg/dL (0.72-1.25); POTASSIUM 3.9 mmol/L (3.5-5.1)
[2019-10-12] MEDS ORDERED: B&O 60MG R/S 60 MG SUPP PR PRN (07:15)
--- NOTE | 2019-10-12 07:24 | NUR ---
BEDSIDE REPORT GIVEN TO THE ONCOMING NURSE
[2019-10-12] MEDS: INSULIN REGULAR, HUMAN 100 UNIT/1 ML 3ML VIAL SQ SCH ×4 (07:30→21:00)
[2019-10-12] MEDS: FUROSEMIDE 20 MG TAB PO SCH ×2 (08:15→16:00)
[2019-10-12] MEDS: FAMOTIDINE 20 MG/2 ML VIAL IV SCH ×2 (08:15→16:00)
[2019-10-12] MEDS: DUTASTERIDE 0.5 MG CAP PO SCH (08:15)
[2019-10-12] MEDS: TOLTERODINE TARTRATE 4 MG CAPCR PO SCH (08:15)
[2019-10-12] MEDS ORDERED: NON-FORMULARY MEDICATION INJ SCH (08:15)
[2019-10-12] MEDS: ALLOPURINOL 300 MG TAB PO SCH (08:15)
[2019-10-12] MEDS: SODIUM CHLORIDE 0.9% IR PRN ×2 (11:56→17:53)
[2019-10-12] MEDS: ALUM IR PRN ×2 (11:56→17:53)
--- NOTE | 2019-10-12 14:42 | NUR ---
IM- progress note O/N see below REVIEW OF SYSTEMS: Denies any dizziness, chest pain, shortness of breath, fever, chills, nausea, vomiting, diarrhea, leg pain, back pain, headache, blurred vision. PHYSICAL EXAMINATION VITAL SIGNS: Reviewed. GENERAL: A tired-appearing man resting in bed. HEENT: Anicteric. Pupils react to light. No oral lesions. CARDIOVASCULAR: Normal S1, S2. He has a 3/6 systolic murmur most prominent in the left chest wall. LUNGS: Moderate breath sounds. ABDOMEN: Soft, nontender. : walker with pink colored urine EXTREMITIES: No edema. SKIN: Dry. PSYCHIATRIC: Flat affect. NEUROLOGIC: Alert and oriented times 3. Moving all extremities. LABS: Reviewed. MEDICATIONS: Reviewed. ASSESSMENT AND PLAN: An 87-year-old man. Hematuria- no antiplateletes/AC; urology consult; walker for irrigation Hx Radiation cystitis Hx Right renal stone- non-obx Hx Right renal mass CKD3 due to DM2- as baseline; check hab1c/lipids Hx prostate cancer HTN- monitor BP HLD- cont statin Prop: scd; pepcid dispo: f/u urology; f/u studies and blood cts. 6-23 Hb stable; continue bladder irrigation; iron and vitB12 levels normal; Vidal Samson MD, PhD.
--- NOTE | 2019-10-12 19:21 | NUR ---
PATIENT IS IN STABLE CONDITION WITH NO S/S OF RESPIRATORY DISTRESS- NO PAIN VOICED. SECOND IRRIGATION BAG OF ALUM IS INFUSING AT THIS TIME. NIGHT NURSE INFORMED TO CONTINUE WITH CONTINUOUS BLADDER IRRIGATION ONCE THE SECOND BAG OF ALUM IS COMPLETED. NIGHT NURSE INFORMED CLOTS WERE REMOVED ONCE DURING DAY SHIFT. WILL BE STAYING THE NIGHT THIS EVENING (APPROVED BY COMPLIANCE REPRESENTATIVE DEALER). CALL LIGHT IS WITHIN REACH, PATIENT INSTRUCTED TO CALL FOR ASSISTANCE NEEDED. BEDSIDE SHIFT REPORT GIVEN TO ONCOMING NURSE
--- NOTE | 2019-10-12 20:13 | NUR ---
RECEIVED PT IN BED AOX2 .DENIES PAIN SECOND IRRIGATION BAG OF ALUM IS INFUSING AT THIS TIME.. WILL BE STAYING THE NIGHT THIS EVENING. CALL LIGHT IS WITHIN REACH, CALL LIGHT WITH IN REACH .CONTINUE TO MONITOR
[2019-10-12] MEDS: SIMVASTATIN 20 MG TAB PO SCH (21:46)
[2019-10-12] MEDS: SERTRALINE HCL 50 MG TAB PO SCH (21:46)
[2019-10-13] VITALS (7 sets, daily range): BP systolic 105–151; BP diastolic 52–76
[2019-10-13] MEDS: TRAMADOL HCL 50 MG TAB PO PRN (01:30)
[2019-10-13 06:24] LABS: ALBUMIN 3.4 g/dL (3.5-5.0); ALBUMIN/GLOBULIN RATIO 1.1 (0.8-2.0); CREATININE, SERUM 2.22 mg/dL (0.72-1.25); MAGNESIUM 1.7 MG/DL (1.3-2.1)
--- NOTE | 2019-10-13 06:27 | NUR ---
PT C/O PAIN AND GIVEN TRAMADOL .BLADDER IRRIGATION IS CONTINUING .FAMILY AT THE BEDSIDE .CONTINUE TO MONITOR
--- NOTE | 2019-10-13 06:45 | NUR ---
ALUM BLADDER IRRIGATION BAG IS NOT AVAILABLE AND NOW USING NS IRRIGATION BAG
[2019-10-13 07:13] LABS: BASOPHILS # (AUTO) 0.1 (0.0-0.1); BASOPHILS % 0.8 % (0.0-1.0); EOSINOPHILS # (AUTO) 0.5 (0.0-0.4); EOSINOPHILS % 6.5 % (0.0-6.0); HEMATOCRIT 32.9 % (38.2-49.6); HEMOGLOBIN 10.6 g/dL (14.0-18.0); LYMPHOCYTES # (AUTO) 2.2 (1.0-3.2); LYMPHOCYTES % 28.4 % (18.0-39.1); MEAN CORPUSCULAR HEMOGLOBIN 30.5 pg (28-32); MEAN CORPUSCULAR HGB CONC 32.2 g/dL (31-35); MEAN CORPUSCULAR VOLUME 94.5 fL (81-99); MONOCYTES # (AUTO) 0.9 (0.2-0.8); MONOCYTES % 11.8 % (4.4-11.3); PLATELET COUNT 224 x10e3/uL (140-360); RED BLOOD COUNT 3.48 x10e6/uL (4.3-5.7); RED CELL DISTRIBUTION WIDTH 13.7 % (11.7-14.4)
[2019-10-13] MEDS: INSULIN REGULAR, HUMAN 100 UNIT/1 ML 3ML VIAL SQ SCH ×4 (07:30→20:55)
--- NOTE | 2019-10-13 07:34 | NUR ---
BEDSIDE REPORT GIVEN TO THE ONCOMING NURSE.
[2019-10-13] MEDS: FAMOTIDINE 20 MG/2 ML VIAL IV SCH ×2 (10:00→16:30)
[2019-10-13] MEDS: TOLTERODINE TARTRATE 4 MG CAPCR PO SCH (10:01)
[2019-10-13] MEDS: DUTASTERIDE 0.5 MG CAP PO SCH (10:01)
[2019-10-13] MEDS: ALLOPURINOL 300 MG TAB PO SCH (10:02)
[2019-10-13] MEDS: FUROSEMIDE 20 MG TAB PO SCH ×2 (10:02→17:00)
--- NOTE | 2019-10-13 16:36 | NUR ---
Nutrition Screen Note RD Recommendation for Physician: - Continue current diet Plan of Care: RD following, monitoring for tolerance and adequacy Nutrition reason for involvement: Nutrition Risk Trigger Primary Diagnose(s): hematuria PMH: No H&P Ht: 74 in Wt: 196 lb BMI: 25.2 kg/m2 IBW: [address] Assessment: (10/12) 89 YOM admitted for hematuria, pt seen today per MST screen. 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 Pt denies wt loss. Pt and report baseline constipation, pt's reports taking Miralax and another medication for constipation. Pt and with no questions at time of visit. Chart reviewed. Labs and meds reviewed. Will continue to monitor. Current Diet: Cardiac Malnutrition Evaluation (10/13/19) The patient does not meet criteria for a specified degree of malnutrition at this time. Will re-evaluate at follow-up as appropriate. Diet Education Needs Assessment: Diet education not indicated. Diet tolerance: tolerating po Nutrition Care Level: low Signed: Angela Phillips RD, LD, [facility]
--- NOTE | 2019-10-13 19:01 | NUR ---
WALKING ROUNDS PERORMED RECEIVED PT LAYING SEMI FOWLERS IN BED, AAOX3, RR EVEN AND NON-LABORED, ON ROOM AIR. NO S/SX OF DISTRESS NOTED. 3WAY GOLDBERG CLAMPED AT THIS TIME. LEFT PT LAYING SEMI FOWLERS IN BED, BED IN LOW LOCKED POSITION, SIDE RAILS UPX2, CALL LIGHT AND PHONE WITHIN REACH.
--- NOTE | 2019-10-13 19:31 | NUR ---
walking rounds complete, pt stable at shift change.
[2019-10-13] MEDS: SIMVASTATIN 20 MG TAB PO SCH (20:45)
[2019-10-13] MEDS: SERTRALINE HCL 50 MG TAB PO SCH (20:45)
[2019-10-14] VITALS (7 sets, daily range): BP systolic 120–161; BP diastolic 62–73
[2019-10-14 04:26] LABS: CLARITY,URINE CLOUDY (CLEAR); COLOR,URINE AMBER (YELLOW); KETONES,URINE NEGATIVE (NEGATIVE); LEUKOCYTE ESTERASE ,URINE 1+ (NEGATIVE); NITRITE,URINE NEGATIVE (NEGATIVE); PROTEIN,URINE DIPSTICK 2+ (NEGATIVE)
[2019-10-14 04:27] LABS: BILIRUBIN,URINE NEGATIVE (NEGATIVE); URINE UROBILINOGEN 0.2 mg/dL (0.2 - 1)
[2019-10-14 04:51] LABS: RBC,URINE >50 /HPF (0-5); WBC,URINE (MAN) >50 /HPF (0-5)
[2019-10-14 04:52] LABS: BACTERIA,URINE MANY /HPF; EPITHELIAL CELLS,URINE MODERATE /LPF; RENAL EPITHELIAL CELLS,URINE FEW; TRANSITIONAL EPI CELLS,URINE FEW
[2019-10-14] MEDS: INSULIN REGULAR, HUMAN 100 UNIT/1 ML 3ML VIAL SQ SCH ×4 (07:30→22:53)
[2019-10-14] MEDS: DUTASTERIDE 0.5 MG CAP PO SCH (09:22)
[2019-10-14] MEDS: FAMOTIDINE 20 MG/2 ML VIAL IV SCH ×2 (09:22→18:08)
[2019-10-14] MEDS: TOLTERODINE TARTRATE 4 MG CAPCR PO SCH (09:23)
[2019-10-14] MEDS: ALLOPURINOL 300 MG TAB PO SCH (09:23)
[2019-10-14] MEDS: FUROSEMIDE 20 MG TAB PO SCH ×2 (09:23→18:08)
[2019-10-14] MEDS ORDERED: SENNA-S TABLET PO SCH (13:50)
[2019-10-14] MEDS: SENNA-S TABLET PO SCH (18:08)
--- NOTE | 2019-10-14 19:00 | NUR ---
RECEIVED PATIENT IN BEDSIDE SHIFT REPORT. PATIENT RESTING IN BED AT THIS TIME. NO PAIN REPORTED. NO S&S OF DISTRESS NOTED. CBI RUNNING SLOW AND CLEAR, YELLOW. AT BEDSIDE. BED LOCKED IN LOWEST POSITION, SIDE RAILS UPX2, CALL LIGHT IN REACH.
--- NOTE | 2019-10-14 19:21 | NUR ---
walking rounds complete, pt stable at shift change.
--- NOTE | 2019-10-14 21:00 | NUR ---
URINE NOTED TO BE PINK AGAIN, CBI RATE INCREASED. WILL CONTINUE TO MONITOR CLOSELY.
[2019-10-14] MEDS: SIMVASTATIN 20 MG TAB PO SCH (22:53)
[2019-10-14] MEDS: SERTRALINE HCL 50 MG TAB PO SCH (22:53)
--- NOTE | 2019-10-14 23:30 | NUR ---
LARGE BLOOD CLOT NOTED IN TUBING. MANUALLY IRRIGATED GOLDBERG TO ATTEMPT TO REMOVE IT, NO CLOT CAME OUT. CHANGED COLLECTION BAG TO CLEAR THE CLOT. WILL CONTINUE TO MONITOR.
[2019-10-15] VITALS (9 sets, daily range): BP systolic 122–152; BP diastolic 52–89
[2019-10-15 05:48] LABS: BASOPHILS # (AUTO) 0.1 (0.0-0.1); BASOPHILS % 0.6 % (0.0-1.0); EOSINOPHILS # (AUTO) 0.5 (0.0-0.4); EOSINOPHILS % 5.7 % (0.0-6.0); HEMATOCRIT 32.9 % (38.2-49.6); HEMOGLOBIN 10.8 g/dL (14.0-18.0); LYMPHOCYTES % 23.6 % (18.0-39.1); MEAN CORPUSCULAR HEMOGLOBIN 31.2 pg (28-32); MEAN CORPUSCULAR HGB CONC 32.8 g/dL (31-35); MEAN CORPUSCULAR VOLUME 95.1 fL (81-99); MONOCYTES # (AUTO) 1.1 (0.2-0.8); MONOCYTES % 13.1 % (4.4-11.3); NEUTROPHILS # (AUTO) 4.7 (2.1-6.9); NEUTROPHILS % 56.3 % (38.7-80.0); PLATELET COUNT 194 x10e3/uL (140-360); RED BLOOD COUNT 3.46 x10e6/uL (4.3-5.7); RED CELL DISTRIBUTION WIDTH 13.5 % (11.7-14.4)
[2019-10-15 06:05] LABS: ANION GAP 13.5 mmol/L (8-16); CALCIUM 9.2 mg/dL (8.4-10.2); CREATININE, SERUM 2.19 mg/dL (0.72-1.25); POTASSIUM 3.5 mmol/L (3.5-5.1)
[2019-10-15] MEDS: INSULIN REGULAR, HUMAN 100 UNIT/1 ML 3ML VIAL SQ SCH ×4 (08:30→21:00)
[2019-10-15] MEDS: FAMOTIDINE 20 MG/2 ML VIAL IV SCH ×2 (08:30→17:30)
[2019-10-15] MEDS: ALLOPURINOL 300 MG TAB PO SCH (09:21)
[2019-10-15] MEDS: DUTASTERIDE 0.5 MG CAP PO SCH (09:23)
[2019-10-15] MEDS: SENNA-S TABLET PO SCH ×2 (09:23→17:45)
[2019-10-15] MEDS: TOLTERODINE TARTRATE 4 MG CAPCR PO SCH (09:23)
[2019-10-15] MEDS: FUROSEMIDE 20 MG TAB PO SCH ×2 (09:23→17:45)
--- NOTE | 2019-10-15 17:15 | NUR ---
GOLDBERG REMOVED PER THE ORDER BY DR. NIELSEN. PT TOLERATED WELL. TIP INTACT. SERIAL URINE CUPS AT BEDSIDE. PT DENIED FURTHER NEEDS,
--- NOTE | 2019-10-15 18:30 | NUR ---
PT VOIDED. FIRST BOTTLE SERIAL URINE IS CLEAR.
--- NOTE | 2019-10-15 19:05 | NUR ---
BEDSIDE SHIFT REPORT GIVEN TO THE LITIGATION SPECIALIST RN. PT DENIED FURTHER NEEDS.
--- NOTE | 2019-10-15 20:23 | NUR ---
IM- progress note O/N see below REVIEW OF SYSTEMS: Denies any dizziness, chest pain, shortness of breath, fever, chills, nausea, vomiting, diarrhea, leg pain, back pain, headache, blurred vision. PHYSICAL EXAMINATION VITAL SIGNS: Reviewed. GENERAL: A tired-appearing man resting in bed. HEENT: Anicteric. Pupils react to light. No oral lesions. CARDIOVASCULAR: Normal S1, S2. He has a 3/6 systolic murmur most prominent in the left chest wall. LUNGS: Moderate breath sounds. ABDOMEN: Soft, nontender. : walker with pink colored urine EXTREMITIES: No edema. SKIN: Dry. PSYCHIATRIC: Flat affect. NEUROLOGIC: Alert and oriented times 3. Moving all extremities. LABS: Reviewed. MEDICATIONS: Reviewed. ASSESSMENT AND PLAN: An 87-year-old man. Hematuria- no antiplateletes/AC; urology consult; walker for irrigation Hx Radiation cystitis Hx Right renal stone- non-obx Hx Right renal mass CKD3 due to DM2- as baseline; check hab1c/lipids Hx prostate cancer HTN- monitor BP HLD- cont statin Prop: scd; pepcid dispo: f/u urology; f/u studies and blood cts. 6-23 Hb stable; continue bladder irrigation; iron and vitB12 levels normal; 6-24 urine clear today; cont walker; f/u urology; some sundowning overnight- assisted in reorienting patient; 6-25 Hb stable; 6-26 improving; cont care; Vidal Samson MD, PhD.
[2019-10-15] MEDS: SERTRALINE HCL 50 MG TAB PO SCH (20:53)
[2019-10-15] MEDS: SIMVASTATIN 20 MG TAB PO SCH (20:53)
[2019-10-16 00:59] VITALS: BP 134/77
[2019-10-16 05:11] VITALS: BP 122/54
--- NOTE | 2019-10-16 05:40 | NUR ---
D/C summary Principal dx: Hematuria- no antiplateletes/AC; urology consult; walker for irrigation secondary Dx: Hx Radiation cystitis Hx Right renal stone- non-obx Hx Right renal mass CKD3 due to DM2- as baseline; check hab1c/lipids Hx prostate cancer HTN- monitor BP HLD- cont statin Prop: scd; pepcid dispo: f/u urology; f/u studies and blood cts. 6-23 Hb stable; continue bladder irrigation; iron and vitB12 levels normal; 6-24 urine clear today; cont walker; f/u urology; some sundowning overnight- assisted in reorienting patient; 6-25 Hb stable; 6-26 improving; cont care; d/c home stable f/u pcp 2 days and urology 1 week d/c>35mins Vidal Samson MD, PhD.
--- NOTE | 2019-10-16 06:48 | NUR ---
RECEIVED BEDSIDE SHIFT REPORT FROM OFF GOING NURSE. PATIENT IS RESTING IN BED. NO ACUTE DISTRESS NOTED. CALL LIGHT WITHIN REACH. BED IN THE LOWEST POSITION.
--- NOTE | 2019-10-16 06:55 | NUR ---
patient endorsed to next shift for continuity of care.
--- NOTE | 2019-10-16 07:15 | NUR ---
CHARGE NURSE TO DISCHARGE PATIENT.
[2019-10-16 07:53] VITALS: BP 114/58
[2019-10-16 08:29] VITALS: BP 114/58
--- NOTE | 2019-10-16 08:50 | NUR ---
RECEIVED DC ORDER FROM . PATIENT IS IN STABLE CONDITION. IV LINE TO LEFT ANTECUBITAL DISCONTINUED WITH TIP INTACT, PRESSURE APPLIED TO SITE, NO BLEEDING NOTED. DISCHARGE TEACHING PROVIDED BY CHARGE NURSE. DISCHARGE FOLDER WITH PAPERWORK AND PRESCRIPTION ON HAND. ALL PERSONAL ITEMS ON HAND. PATIENT ACCOMPANIED TO PRIVATE AUTO VIA WHEELCHAIR BY STAFF.
== END 2019-10-16 08:50 | disposition home or self-care (01) | DRG 699 ==
LOC: ER 11:47 → ERHOLD 12:54 → MED/SURG3 16:36
PROVIDERS: ADMIT Internal Medicine; ATTEND Internal Medicine
DX: N30.41 Irradiation cystitis with hematuria (principal); F05 Delirium due to known physiological condition; C61 Malignant neoplasm of prostate; I12.9 Hypertensive chronic kidney disease with stage 1 through stage 4 chronic kidney disease, or unspecified chronic kidney disease; N18.3 Chronic kidney disease, stage 3 (moderate); E11.22 Type 2 diabetes mellitus with diabetic chronic kidney disease; E78.5 Hyperlipidemia, unspecified; N40.0 Benign prostatic hyperplasia without lower urinary tract symptoms; N28.1 Cyst of kidney, acquired; D64.9 Anemia, unspecified
CPT/HCPCS: 36415; 51700; 80048; 80053; 80061; 81001; 82108; 82607; 82728; 82948; 83036; 83540; 83735; 84466; 85025; 85610; 87635; 99284; J1817; J2001

== ENCOUNTER → 2020-01-07 | Day surgery (SDC) | payer MEDICARE, OTHER ==
[2020-01-04 09:25] LABS: BASOPHILS % 0.6 % (0.0-1.0); EOSINOPHILS # (AUTO) 0.2 (0.0-0.4); EOSINOPHILS % 3.6 % (0.0-6.0); HEMATOCRIT 36.8 % (38.2-49.6); HEMOGLOBIN 11.8 g/dL (14.0-18.0); LYMPHOCYTES # (AUTO) 2.4 (1.0-3.2); MEAN CORPUSCULAR HEMOGLOBIN 30.2 pg (28-32); MEAN CORPUSCULAR HGB CONC 32.1 g/dL (31-35); MEAN CORPUSCULAR VOLUME 94.1 fL (81-99); MONOCYTES # (AUTO) 0.7 (0.2-0.8); MONOCYTES % 10.1 % (4.4-11.3); NEUTROPHILS # (AUTO) 3.4 (2.1-6.9); PLATELET COUNT 239 x10e3/uL (140-360); RED BLOOD COUNT 3.91 x10e6/uL (4.3-5.7); RED CELL DISTRIBUTION WIDTH 13.8 % (11.7-14.4)
[~2020-01-07] MED LIST changes: +DEXILANT60 MG PO; +LIDOCAINE HCL 2% LOCAL INJ 5 ML SDV VIAL INJ ONE; +NIFEDIPINE20 MG PO; +PROPOFOL IV EMULSION 10 MG/ML 20 ML VIAL ONE
[2020-01-07 07:50] VITALS: BP 127/73
== END | disposition home or self-care (01) ==
LOC: OR 05:15
PROVIDERS: ATTEND Internal Medicine Gastroenterology
DX: K29.50 Unspecified chronic gastritis without bleeding (principal); K57.30 Diverticulosis of large intestine without perforation or abscess without bleeding; K64.8 Other hemorrhoids; Z71.3 Dietary counseling and surveillance; I10 Essential (primary) hypertension; E11.9 Type 2 diabetes mellitus without complications; E66.3 Overweight; I45.10 Unspecified right bundle-branch block; Z88.6 Allergy status to analgesic agent; Z88.1 Allergy status to other antibiotic agents; Z01.810 Encounter for preprocedural cardiovascular examination; Z01.812 Encounter for preprocedural laboratory examination; Z11.59 Encounter for screening for other viral diseases; Z68.27 Body mass index [BMI] 27.0-27.9, adult; Z85.46 Personal history of malignant neoplasm of prostate
CPT/HCPCS: 36415 ×2; 43239; 45378; 82948; 85025; 93005; J2001; J2704; U0002

== ENCOUNTER 2020-01-24 09:51 | Emergency (ER) | payer MEDICARE, OTHER ==
[~2020-01-24] VITALS: Ht 188 cm; Wt 92.1 kg
[~2020-01-24 09:51] MED LIST changes: -LIDOCAINE HCL 2% LOCAL INJ 5 ML SDV VIAL INJ ONE; -PROPOFOL IV EMULSION 10 MG/ML 20 ML VIAL ONE
--- OUTSIDE RECORDS SUMMARY | 2020-01-24 11:02 | XMS REPORT | Continuity of Care Document ---
Author Author [facility] t Organization [facility] Address [address] [place] [address] Phone Unavailable Care Team Providers Care Tailor Helper Name Role Phone MEHUL, (NON STAFF) CYNDI PCP Markos OWENS Attphys Unavailable NATALYA NIELSEN Attphys Unavailable NEFTALI FELICIANO Attphys Unavailable VIDAL COWAN Attphys Unavailable Florence WESTON Attphys Unavailable Jose OLVERA Attphys Unavailable VIDAL COWAN Admphys Unavailable Payers Payer Name Policy Type Policy Number Effective Date Expiration Date Giacomo Renee [facility] [id number] 2018 00:00:00 [facility] Problems Condition Name Condition Details Condition Category Status Onset Date Resolution Date Last Treatment Date Treating Clinician Comments Source Hematuria Hematuria Problem Active [facility] Urinary tract infection UTI (urinary tract infection) Problem Active [facility] 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 Ordering Clinician Indication Dosage Frequency Signature (SIG) Comments Components Source Levofloxacin (Levaquin) 500 Mg Tablet, 500 Mg Oral Lev ofloxacin (Levaquin) 500 Mg Tablet, 500 Mg Oral 2018-03-04 00:00:00 2018-07-09 00:00:00 Regina Cowan Md 500 Daily [facility] Bisacodyl (Dulcolax) 5 Mg Tablet.dr Rico (Dulcolax) 5 M g Tablet. 2017-12-23 00:00:00 Yes Vidal Cowan Md 10 Daily [facility] Docusate Sodium (Colace) 100 Mg Capsule Docusate Sodium (Col karen) 100 Mg Capsule 2017-12-23 00:00:00 Yes Vidal Cowan Md 100 Twice A Da y [facility] Famotidine 20 Mg Tab Famotidine 20 Mg Tab 2017-12-23 00:00:00 Yes Vidal Cowan Md 20 Twice Daily Before Meals [facility] Sennosides/Docusate Sodium (Senna S Tablet) 1 Each Tab let, 1 Ea Oral Sennosides/Docusate Sodium (Senna S Tablet) 1 Each Tablet, 1 Ea Oral 2017-12-23 00:00:00 2018-07-09 00:00:00 No Vidal Cowan Md 1 Twice A Day [facility] Allopurinol 300 Mg Tablet Allopurinol 300 Mg Tablet Yes 300 Daily [facility] Ciprofloxacin Hcl 250 Mg Tablet Ciprofloxacin Hcl 250 Mg Tablet Yes 250 Twice A Day [facility] Dutasteride (Avodart) 0.5 Mg Capsule Dutasteride (Avodart) 0.5 Mg C apsule Yes .5 Daily [facility] Finasteride 5 Mg Tablet Finasteride 5 Mg Tablet Yes 5 Daily [facility] Furosemide 20 Mg Tablet Furosemide 20 Mg Tablet Yes 20 Twice A Day [facility] Hydralazine Hcl 10 Mg Tablet Hydralazine Hcl 10 Mg Tablet Y es 10 Twice A Day [facility] Linagliptin (Tradjenta) 5 Mg Tablet Linagliptin (Tradjenta) 5 Mg Tabl et Yes 5 Daily [facility] Nifedipine (Nifedipine Er) 30 Mg Tab.er.24 Nifedipine (Nifedipine Er) 30 Mg Tab.er.24 Yes 30 Daily [facility] Polyethylene Glycol 3350 (Miralax) 17 Gm Powd.pack David yethylene Glycol 3350 (Miralax) 17 Gm Powd.pack Yes [facility] Rosuvastatin Calcium (Crestor) 10 Mg Tab Rosuvastatin Calcium (Crestor) 10 Mg Tab Yes [address] [facility] Tolterodine Tartrate (Detrol La) 4 Mg Cap.er.24h Tolte rodine Tartrate (Detrol La) 4 Mg Cap.er.24h Yes 4 Daily [facility] Lorazepam 0.5 Mg Tablet, 0.5 Mg Oral Lorazepam 0.5 Mg Tablet, 0. 5 Mg Oral 2018-07-09 00:00:00 No .5 Twice A Day [facility] Bimatoprost (Lumigan) 2.5 Ml Drops, Bimatoprost (Lumigan) 2.5 Ml Drops, 2017-12-21 00:00:00 No Dialy Gtts To Eyes [facility] Glyburide (Diabeta) 5 Mg Tablet, Glyburide (Diabeta) 5 Mg Tablet , 2017-12-21 00:00:00 No Two Tabs Twice Daily [facility] Lisinopril (Prinivil) 20 Mg Tablet, Lisinopril (Prinivil) 20 Mg Tablet, 2017-12-21 00:00:00 No Daily [facility] Lovastatin (Altoprev) 40 Mg Tab.sr.24h, Lovastatin (Altoprev ) 40 Mg Tab.sr.24h, 2017-12-21 00:00:00 No Daily [facility] Niacin (Niaspan) 500 Mg Tablet.sa, Niacin (Niaspan) 500 Mg Table t.sa, 2017-12-21 00:00:00 No Twice Daily [facility] Valsartan (Diovan) 160 Mg Tablet, Valsartan (Diovan) 160 Mg Tabl et, 2017-12-21 00:00:00 No Daily [facility] Procedures Procedure Date / Time Performed Performing Clinician Richard e CT of abdomen and pelvis without contrast 2018-07-23 00:00:00 NATALYA COPELAND [facility] X-ray of chest, two views 2018-04-12 00:00:00 RUBI WESTON [facility] X-ray of chest, two views 2018-01-01 00:00:00 TAYLOR BRENNER [facility] Magnetic resonance imaging of brain without contrast 2017-12 00:00:00 TAYLOR BRENNER [facility] Computed tomography of brain without radiopaque contrast 201 11-27-09 00:00:00 TAYLOR BRENNER [facility] Computed tomography of chest without contrast 2017-12-29 00: 00:00 TAYLOR BRENNER [facility] INSERTION OF ENDOTRACHEAL AIRWAY INTO TRACHEA, VIA OPENING 2 00:00:00 ELICEO OLVERA [facility] RESPIRATORY VENTILATION, LESS THAN 24 CONSECUTIVE HOURS 2017 00:00:00 TAYLOR BRENNER [facility] Ultrasound, renal 2017-12-24 00:00:00 VIDAL COWAN [facility] Encounters Start Date/Time End Date/Time [facility] Source 2018-10-13 12:10:00 2018-10-13 13:11:00 Departed Emergency Room [facility] [id number] [facility] 2018-10-12 12:34:00 2018-10-12 12:34:00 Registered Clinic [facility] [id number] [facility] 2018-07-23 13:07:00 2018-07-25 17:16:00 Discharged Inpatient 1 VIDAL COWAN [facility] [id number] [facility] 2018-07-10 13:32:00 2018-07-12 14:15:00 Discharged Inpatient [facility] [id number] [facility] 2018-04-12 08:42:00 2018-04-12 11:55:00 Departed Emergency Room 1 RUBI WESTON [facility] [id number] [facility] 2018-02-28 09:38:00 2018-03-04 10:46:00 Discharged Inpatient 1 ELICEO OLVERA [facility] [id number] [facility] 2017-12-21 06:22:00 2018-01-02 11:44:00 Discharged Inpatient 1 VIDAL COWAN [facility] [id number] [facility] 2017-03-24 11:43:00 2017-03-24 11:43:00 Registered Clinic NATALYA CONCEPCION [facility] [id number] [facility] Results Test Description Test Time Test Comments Results Result Comments Source CT ABDOMEN/PELVIS WO 2019-10-05 00:33:00 [place] [address] Patient Name: JOSE JUAN REYES MR #: [id number] : 1930 Age/Sex: 89/M Req #: [id number] Adm Physician: Ordered by: PAPI OWENS MD Report #: [id number] Location: ER Room/Bed: Procedure: [id number] CT/CT ABDOMEN/PELVIS WO Exam Date: 10/04/19 Exam Time: 2345 REPORT STATUS: Signed EXAM: CT Abdomen and Pelvis WITHOUT contrast INDICATION: Hematuria COMPARISON: Abdominal CT 08/24/2019, Report from Abdominal CT 03/06/2009 TECHNIQUE: Abdomen and pelvis were scanned utilizing a multidetector helical scanner from the lung base to the pubic symphysis without administration of IV contrast. Absence of intravenous contrast decreases sensitivity for detection of focal lesions and vascular pathology. Coronal and sagittal reformations were obtained. Routine protocol was performed. IV CONTRAST: None ORAL CONTRAST: None COMPLICATIONS: None RADIATION DOSE: Total DLP: 676 mGy*cm Estimated effective dose: (DLP x 0.015 x size factor) mSv CTDIvol has been reviewed. It is below the limits set by the Radiation Protocol Committee (RPC). Dose modulation, iterative reconstruction, and/or weight based adjustment of the mA/kV was utilized to reduce the radiation dose to as low as reasonably achievable. FINDINGS: LINES and TUBES: Urinary bladder Benitez catheter in place, tip in the bladder lumen. LOWER THORAX: Unremarkable HEPATOBILIARY: No focal hepatic lesions. No biliary ductal dilation. GALLBLADDER: No radio-opaque stones or sludge. No wall thickening. SPLEEN: No splenomegaly. PANCREAS: No focal masses or ductal dilatation. ADRENALS: No adrenal nodules KIDNEYS/URETERS: Multiple small bilateral renal cysts, largest is in the right renal superior pole measures 2.7 cm, similar compared to 08/24/2019. No hydronephrosis. No stones. GI TRACT: No abnormal distention, wall thickening, or evidence of bowel obstruction. Colonic diverticulosis. Appendix is normal. PELVIC ORGANS/BLADDER: Urinary bladder Benitez catheter in place, tip and retention balloon in the bladder lumen. LYMPH NODES: No lymphadenopathy. VESSELS: Arterial calcifications. PERITONEUM / RETROPERITONEUM: No free air or fluid. BONES: Degenerative changes. Osseous demineralization. SOFT TISSUES: Fat-containing left inguinal hernia. IMPRESSION: 1. Urinary bladder Benitez catheter in place, tip and retention balloon in the bladder lumen. 2. Slightly complex right renal cyst is similar compared to the description from 2009 CT report , likely benign. 3. Colonic diverticulosis without evidence of acute diverticular as. Signed by: Constantino Yost DO on 10/05/2019 12:57 AM Dictated By: CONSTANTINO YOST DO Transcribed By: JUDD on 10/05/1956 COPY TO: PAPI OWENS MD RETROGRADE PYELOGRAM 2019-09-24 15:40:00 [place] [address] Patient Name: JOSE JUAN REYES MR #: [id number] : 1930 Age/Sex: 89/M Req #: [id number] Adm Physician: Ordered by: NATALYA NIELSEN MD Report #: [id number] Location: OR Room/Bed: Procedure: DX/RETROGRADE PYELOGRAM Exam Date: 09/24/19 Exam Time: 918 REPORT STATUS: Signed OR Fluoroscopy: IMPRESSION: Fluoroscopy service provided in the OR. Interpretation not requested. Signed by: Wilder Restrepo MD on 09/24/2019 3:40 PM Dictated By: WILDER RESTREPO MD 39 Transcribed By: JUDD on 09/24/191539 COPY TO: NATALYA NIELSEN MD CHEST 2 VIEWS 2019-09-21 18:00:00 [place] [address] Patient Name: JOSE JUAN REYES MR #: [id number] : 1930 Age/Sex: 89/M Req #: [id number] Adm Physician: Ordered by: NATALYA NIELSEN MD Report #: [id number] Location: OR Room/Bed: Procedure: DX/CHEST 2 VIEWS Exam Date: 09/21/19 Exam Time: 1720 REPORT STATUS: Signed EXAMINATION: CHEST 2 VIEWS INDICATION: PREOP [id number] COMPARISON: 04/12/2018. FINDINGS: TUBES and LINES: None. LUNGS: Lungs are well inflated. Lungs are clear. There is no evidence of pneumonia or pulmonary edema. PLEURA: No pleural effusion or pneumothorax. HEART AND MEDIASTINUM: The cardiomediastinal silhouette is unremarkable. There are atherosclerotic calcifications within the aorta. Surgical clips projected on the superior mediastinum. BONES AND SOFT TISSUES: No acute osseous lesion. Degenerative changes of the right shoulder joint with elevation of the right humeral head suggestive of chronic rotator cuff pathology. Degenerative changes of the thoracic spine. UPPER ABDOMEN: No free air under the diaphragm. IMPRESSION: No acute thoracic abnormality. Signed by: Dr. Jessica Green M.D. on 09/21/2019 6:04 PM Dictated By: PERLITA GREEN MD, MD 03 Transcribed By: JUDD on 09/21/191803 COPY TO: NATALYA NIELSEN MD CT ABDOMEN/PELVIS WO 2019-08-24 10:53:00 [place] [address] Patient Name: JOSE JUAN REYES MR #: [id number] : 1930 Age/Sex: 88/M Req #: [id number] Adm Physician: Ordered by: NEFTALI FELICIANO DO Report #: [id number] Location: ER Room/Bed: Procedure: [id number] CT/CT ABDOMEN/PELVIS WO Exam Date: 08/24/19 Exam Time: 1030 REPORT STATUS: Signed CT of the abdomen and pelvis, without contrast. History: Hematuria. Comparison: Renal ultrasound from 08/16/2019, MRI from 10/21/2018, CT abdomen/pelvis without contrast from 07/23/2018. Technique: Multidetector CT scanning of the abdomen and pelvis w as performed from the level of the lung bases to the inferior pubic rami without the use of contrast. Coronal and sagittal multiplanar reformations were obtained. RADIATION DOSE: Total DLP: 703.77 mGy*cm Dose modulation, iterative reconstruction, and/or weight based adjustment of the mA/kV was utilized to reduce the radiation dose to as low as reasonably achievable. FINDINGS: The lung bases are grossly unremarkable. The liver is normal in size and attenuation with scattered granulomatous calcifications. The gallbladder is unremarkable. There is no biliary ductal dilatation. The stomach, spleen, pancreas, and right adrenal gland demonstrate an unremarkable noncontrast appearance. There is a 1.1 cm left adrenal nodule with attenuation values compatible with a benign adenoma, unchanged from prior examinations. The kidneys are normal in size and location. There are multiple hypodensities present bilaterally likely reflecting cysts and better characterized on prior ultrasound and MRI examinations. The largest measures up to 3.2 cm and is located within the left upper pole. A stable 4 mm area of calcification is identified adjacent to a cyst within the upper pole the right kidney which likely reflects a small amount peripheral calcification. No other renal stones/calcifications are identified. There is no evidence for hydronephrosis. No ureteral stone or dilatation is appreciated. There is asymmetrical wall thickening and/or debris identified along the posterior wall of the urinary bladder. The prostate is grossly unremarkable. The abdominal ureters normal in course and caliber with after cirrhotic calcifications. The IVC is normal in caliber. Please note evaluation the bowel is limited without the use of enteric contrast material. The visualized loops of small and large bowel demonstrate no evidence of obstruction or inflammation. Extensive diverticula are noted throughout the colon. There is no ascites or intraperitoneal free air. No abnormally enlarged lymph nodes are identified within the abdomen or pelvis. Tiny fat-containing umbilical hernia noted. Left greater than right sided fat -containing inguinal hernias noted. There are multilevel degenerative changes of the thoracolumbar spine. The osseous structures otherwise demonstrate no evidence for acute fracture or destructive process. IMPRESSION: 1. Wall thickening and/or debris noted along the posterior wall the urinary bladder. Findings may reflect blood products in this patient with reported hematuria. However, a bladder wall lesion cannot be entirely excluded on the basis of this examination. 2. Bilateral renal hypodensities likely reflecting cysts. Subcentimeter calcification noted within the right kidney likely reflecting a cyst with thin peripheral calcification. No evidence for nephrolithiasis, hydronephrosis, or obstructive uropathy. 3. Diverticulosis coli without evidence for acute diverticulitis. 4. Additional stable findings as above. Signed by: Dr. Royce Lawton MD on 08/24/2019 11:09 AM Dictated By: ROYCE LAWTON MD 08 Transcribed By: JUDD on 08/24/191108 COPY TO: NEFTALI FELICIANO DO US RENAL RETROPERITONEAL COMP 2019-08-16 12:44:00 [place] [address] Patient Name: JOSE JUAN REYES MR #: [id number] : 1930 Age/Sex: 88/M Req #: [id number] Adm Physician: Ordered by: NATALYA NIELSEN MD Report #: [id number] Location: Room/Bed: Procedure: [id number] US/US RENAL RETROPERITONEAL COMP Exam Date: 08/16/19 Exam Time: 1226 REPORT STATUS: Signed EXAM: Renal Ultrasound INDICATION: [id number] GROSS HEMATURIA COMPARISON: None TECHNIQUE: Transverse and longitudinal images of the kidneys and bladder were obtained. FINDINGS: Right Kidney: Length: 9.9 cm Appearance: Normal echogenicity. Collecting system: No hydronephrosis Stones: None Cyst/Mass: Upper pole 2.5 x 2.2 x 2.4 cm anechoic simple cyst. Left Kidney: Length: 10.2 cm Appearance: Normal echogenicity. Collecting system: No hydronephrosis Stones: None Cyst/Mass: Upper pole 2.6 x 2.9 x 2.6 cm anechoic simple cyst. Bladder: Empty bladder limits evaluation. The patient voided prior to the exam. IMPRESSION: No hydronephrosis or renal calculi. Bilateral simple renal cysts. Decompressed bladder limits evaluation. Signed by: Larry Rasmussen MD on 08/16/2019 12:45 PM Dictated By: LARRY RASMUSSEN MD 1245 Transcribed By: JUDD on 08/16/19 1245 COPY TO: NATALYA NIELSEN MD MRI ABDOMEN WO 2018-10-21 15:05:00 [place] [address] Patient Name: JOSE JUAN REYES MR #: [id number] : 1930 Age/Sex: 88/M Req #: [id number] Adm Physician: Ordered by: NATALYA NIELSEN MD Report #: [id number] Location: MRI Room/Bed: Procedure: [id number] MRI/MRI ABDOMEN WO Exam Date: Exam Time: REPORT STATUS: Signed EXAM: MRI of the abdomen and pelvis without contrast. INDICATION: Gross hematuria. COMPARISON: CT dated 07/23/2018. TECHNIQUE: Multiplanar and multisequence imaging was performed of the abdomen and pelvis without administration of intravenous contrast. DISCUSSION: Limited study due to motion artifact and lack of intravenous contrast. LOWER THORAX: Unremarkable. HEPATOBILIARY: No definite focal hepatic lesions visualized. No biliary ductal dilation. GALLBLADDER: No radio- opaque stones or sludge. No wall thickening. SPLEEN: No splenomegaly. PANCREAS: No focal masses or ductal dilatation. ADRENALS: No adrenal nodules KIDNEYS/URETERS: Multiple bilateral renal T2 hyperintense, T1 hypointense lesions, likely cysts, the largest in the left superior pole measuring 2.8 x 2.7 cm and in the right midpole measuring 3.3 x 2.7 cm. No definite right renal inferior pole mass visualized. No hydronephrosis. GI TRACT: Visualized bowel loops are unremarkable. No evidence of bowel obstruction. Colonic diverticulosis without evidence of diverticulitis. PELVIS: Bladder is under distended, limiting evaluation. There is a small right posterior bladder diverticulum, seen on pelvic series 15, image 14, measuring 1.1 cm. LYMPH NODES: No lymphadenopathy. VESSELS: Unremarkable. BONES: Degenerative changes of spine. 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 SOFT TISSUES: Unremarkable. IMPRESSION: Multiple bilateral renal T2 hyperintense lesions, likely cysts, measuring up to 3.3 cm. No definite right renal inferior pole mass visualized. However evaluation is very limited due to motion and without intravenous contrast. Recommend renal ultrasound for further evaluation. Colonic diverticulosis without evidence of diverticulitis. Under distended bladder, demonstrating wall thickening. A small right posterior bladder diverticulum visualized. Signed by: Dr. Ld Husain MD on 10/21/2018 3:45 PM Dictated By: LD HUSAIN MD 1545 Transcribed By: JUDD on 10/21/18 1545 COPY TO: NATALYA NIELSEN MD MRI PELVIS WO 2018-10-21 15:05:00 [place] [address] Patient Name: JOSE JUAN REYES MR #: [id number] : 1930 Age/Sex: 88/M Req #: [id number] Adm Physician: Ordered by: NATALYA NIELSEN MD Report #: [id number] Location: MRI Room/Bed: Procedure: [id number] MRI/MRI PELVIS WO Exam Date: Exam Time: REPORT STATUS: Signed EXAM: MRI of the abdomen and pelvis without contrast. INDICATION: Gross hematuria. COMPARISON: CT dated 07/23/2018. TECHNIQUE: Multiplanar and multisequence imaging was performed of the abdomen and pelvis without administration of intravenous contrast. DISCUSSION: Limited study due to motion artifact and lack of intravenous contrast. LOWER THORAX: Unremarkable. HEPATOBILIARY: No definite focal hepatic lesions visualized. No biliary ductal dilation. GALLBLADDER: No radio- opaque stones or sludge. No wall thickening. SPLEEN: No splenomegaly. PANCREAS: No focal masses or ductal dilatation. ADRENALS: No adrenal nodules KIDNEYS/URETERS: Multiple bilateral renal T2 hyperintense, T1 hypointense lesions, likely cysts, the largest in the left superior pole measuring 2.8 x 2.7 cm and in the right midpole measuring 3.3 x 2.7 cm. No definite right renal inferior pole mass visualized. No hydronephrosis. GI TRACT: Visualized bowel loops are unremarkable. No evidence of bowel obstruction. Colonic diverticulosis without evidence of diverticulitis. PELVIS: Bladder is under distended, limiting evaluation. There is a small right posterior bladder diverticulum, seen on pelvic series 15, image 14, measuring 1.1 cm. LYMPH NODES: No lymphadenopathy. VESSELS: Unremarkable. BONES: Degenerative changes of spine. 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 SOFT TISSUES: Unremarkable. IMPRESSION: Multiple bilateral renal T2 hyperintense lesions, likely cysts, measuring up to 3.3 cm. No definite right renal inferior pole mass visualized. However evaluation is very limited due to motion and without intravenous contrast. Recommend renal ultrasound for further evaluation. Colonic diverticulosis without evidence of diverticulitis. Under distended bladder, demonstrating wall thickening. A small right posterior bladder diverticulum visualized. Signed by: Dr. Ld Husain MD on 10/21/2018 3:45 PM Dictated By: LD HUSAIN MD 0242 Transcribed By: JUDD on 10/21/18 6191 COPY TO: NATALYA NIELSEN MD Blood Urea Nitrogen 2018-10-12 13:35:00 Test Item Blood Urea Nitrogen (test code = 3094-0) 33 7-26 H [facility]2019-06-24 13:35:00* Test Item Value Reference Range Interpretation Comments Creatinine (test code = 2160-0) 2.62 0.72-1.25 [facility] Uugtd3648-72-40 13:35:00* Test Item Value Reference Range Interpretation Comments BUN/Creatinine Ratio (test code = 3097-3) 13 6-25 [facility] Glomerular Filtration Rate 2018-10-12 13:35:00* Test Item Value Reference Range Interpretation Comments Estimat Glomerular Filtration Rate (test code = 303246169) 23 >60 L Ranges were taken from the National Kidney Disease Education Program and the [facility] literature.Reference ranges:60 or greater: Ntlgnx29-25 ( for 3 consecutive months): Chronic kidney disease 15 or less: [facility] failureNorth [facility] Pcqbmhe9682-62-56 18:13:00* Test Item Value Reference Range Interpretation Comments Bedside Glucose (test code = 41137-7) 148 70-120 H Meter ID: [id number] [place] Medical Center Glucose 2018-07-25 12:11:00* Test Item Value Reference Range Interpretation Comments Bedside Glucose (test code = 47642-5) 132 70-120 H Meter ID: [id number] E. DeBakey [facility] Medical Centerodium Level 2018-07-25 06:21:00* Test Item Value Reference Range Interpretation Comments Sodium Level (test code = 2951-2) 137 136-145 [facility] America[facility] Ahssu9447-61-91 06:21:00* Test Item Value Reference Range Interpretation Comments Potassium Level (test code = 2823-3) 4.7 3.5-5.1 [facility] AmericaChloride [id number] 06:21:00* Test Item Value Reference Range Interpretation Comments Chloride Level (test code = 2075-0) 109 98-107 H [facility] AmericaCarbon Dioxide Nrfgr7002-08-15 06:21:00* Test Item Value Reference Range Interpretation Comments Carbon Dioxide Level (test code = 2028-9) 23 22-29 [facility] AmericaAnion Quo8499-22-04 06:21:00* Test Item Value Reference Range Interpretation Comments Anion Gap (test code = 52436-4) 9.7 8-16 [facility] America[facility] Urea Odzsbhoe1122-59-17 06:21:00* Test Item Value Reference Range Interpretation Comments Blood Urea Nitrogen (test code = 3094-0) 19 7-26 [facility] AmericaCreatinine2019-04-06 06:21:00* Test Item Value Reference Range Interpretation Comments Creatinine (test code = 2160-0) 1.64 0.72-1.25 H [facility] AmericaBUN/Creatinine Udeuh7992-43-86 06:21:00* Test Item Value Reference Range Interpretation Comments BUN/Creatinine Ratio (test code = 3097-3) 12 - [facility] AmericaEstimat Glomerular Filtration Rate 2018-07-25 06:21:00* Test Item Value Reference Range Interpretation Comments Estimat Glomerular Filtration Rate (test code = 321368168) 40 >60 L Ranges were taken from the National Kidney Disease Education Program and the [facility] literature.Reference ranges:60 or greater: Xqopue89-62 ( for 3 consecutive months): Chronic kidney disease 15 or less: Kidney failureSurgery Specialty Hospitals of AmericaGlucose Wlhzc4281-97-63 06:21:00* Test Item Value Reference Range Interpretation Comments Glucose Level (test code = AIS8791) 104 74-118 [facility] AmericaCalcium Dqejb2978-16-70 06:21:00* Test Item Value Reference Range Interpretation Comments Calcium Level (test code = 67659-1) 9.2 8.4-10.2 [facility] Wvnnj1798-49-57 06:21:00* Test Item Value Reference Range Interpretation Comments Sodium Level (test code = 2951-2) 137 136-145 [facility] AmericaPotassium Avlov8785-13-26 06:21:00* Test Item Value Reference Range Interpretation Comments Potassium Level (test code = 2823-3) 4.7 3.5-5.1 [facility] AmericaChloride Cfwmy6232-96-81 06:21:00* Test Item Value Reference Range Interpretation Comments Chloride Level (test code = 2075-0) 109 98-107 H [facility] AmericaCarbon Dioxide Fkqvd9385-61-78 06:21:00* Test Item Value Reference Range Interpretation Comments Carbon Dioxide Level (test code = 2028-9) 23 22-29 [facility] AmericaAnion Fnb7504-97-09 06:21:00* Test Item Value Reference Range Interpretation Comments Anion Gap (test code = 21917-3) 9.7 8-16 [facility] AmericaGlucose Cauds5237-45-33 06:21:00* Test Item Value Reference Range Interpretation Comments Glucose Level (test code = NAI9280) 104 74-118 [facility] AmericaCalcium Jptsr0389-36-06 06:21:00* Test Item Value Reference Range Interpretation Comments Calcium Level (test code = 89713-8) 9.2 8.4-10.2 [facility] AmericaWhite Blood Ekqng6718-07-74 06:11:00* Test Item Value Reference Range Interpretation Comments White Blood Count (test code = 6690-2) 7.80 4.8-10.8 [facility] of AmericaRed Blood Srdsf6566-66-72 06:11:00* Test Item Value Reference Range Interpretation Comments Red Blood Count (test code = 789-8) 3.45 4.3-5.7 L [facility] AmericaHemoglobin2019-04-06 06:11:00* Test Item Value Reference Range Interpretation Comments Hemoglobin (test code = 83276-4) 10.3 14.0-18.0 L [facility] AmericaHematocrit2019-04-06 06:11:00* Test Item Value Reference Range Interpretation Comments Hematocrit (test code = 4544-3) 32.4 38.2-49.6 L [facility] AmericaMean Corpuscular Dkfprk5490-23-00 06:11:00* Test Item Value Reference Range Interpretation Comments Mean Corpuscular Volume (test code = 787-2) 93.9 81-99 [facility] AmericaMean Corpuscular Zxdwzoncsf8930-38-06 06:11:00* Test Item Value Reference Range Interpretation Comments Mean Corpuscular Hemoglobin (test code = 785-6) 29.9 28-32 [facility] AmericaMean Corpuscular Hemoglobin Concent 2018-07-25 06:11:00* Test Item Value Reference Range Interpretation Comments Mean Corpuscular Hemoglobin Concent (test code = 786-4) 31.8 31-35 [facility] AmericaRed Cell Distribution Edrij4161-91-05 06:11:00* Test Item Value Reference Range Interpretation Comments Red Cell Distribution Width (test code = 91520-1) 14.0 11.7 -14.4 [facility] AmericaPlatelet Kvfgs8447-06-75 06:11:00* Test Item Value Reference Range Interpretation Comments Platelet Count (test code = 777-3) 253 140-360 [facility] AmericaNeutrophils (%) (Auto)2018-07-25 06:11:00 * Test Item Value Reference Range Interpretation Comments Neutrophils (%) (Auto) (test code = 27768-8) 52.6 38.7-80.0 [facility] AmericaLymphocytes (%) (Auto)2018-07-25 06:11:00 * Test Item Value Reference Range Interpretation Comments Lymphocytes (%) (Auto) (test code = 736-9) 30.4 18.0-39.1 [facility] AmericaMonocytes (%) (Auto)2018-07-25 06:11:00* Test Item Value Reference Range Interpretation Comments Monocytes (%) (Auto) (test code = 5905-5) 9.4 4.4-11.3 [facility] AmericaEosinophils (%) (Auto)2018-07-25 06:11:00 * Test Item Value Reference Range Interpretation Comments Eosinophils (%) (Auto) (test code = 713-8) 6.7 0.0-6.0 H [facility] AmericaBasophils (%) (Auto)2018-07-25 06:11:00* Test Item Value Reference Range Interpretation Comments Basophils (%) (Auto) (test code = 706-2) 0.5 0.0-1.0 [facility] AmericaIM GRANULOCYTES %2018-07-25 06:11:00* Test Item Value Reference Range Interpretation Comments IM GRANULOCYTES % (test code = IM GRANULOCYTES %) 0.4 0.0- 1.0 [facility] AmericaNeutrophils # (Auto)2018-07-25 06:11:00* Test Item Value Reference Range Interpretation Comments Neutrophils # (Auto) (test code = 751-8) 4.1 2.1-6.9 [facility] AmericaLymphocytes # (Auto)2018-07-25 06:11:00* Test Item Value Reference Range Interpretation Comments Lymphocytes # (Auto) (test code = 60051-5) 2.4 1.0-3.2 [facility] AmericaMonocytes # (Auto)2018-07-25 06:11:00* Test Item Value Reference Range Interpretation Comments Monocytes # (Auto) (test code = 742-7) 0.7 0.2-0.8 [facility] AmericaEosinophils # (Auto)2018-07-25 06:11:00* Test Item Value Reference Range Interpretation Comments Eosinophils # (Auto) (test code = 711-2) 0.5 0.0-0.4 H [facility] AmericaBasophils # (Auto)2018-07-25 06:11:00* Test Item Value Reference Range Interpretation Comments Basophils # (Auto) (test code = 704-7) 0.0 0.0-0.1 [facility] AmericaAbsolute Immature Granulocyte (auto 2018-07-25 06:11:00* Test Item Value Reference Range Interpretation Comments Absolute Immature Granulocyte (auto (aaliyah t code = Absolute Immature Granulocyte (auto) 0.03 0-0.1 [facility] AmericaWhite Blood Degda4315-73-15 06:11:00* Test Item Value Reference Range Interpretation Comments White Blood Count (test code = 6690-2) 7.80 4.8-10.8 [facility] AmericaRed Blood Dshmc1905-37-57 06:11:00* Test Item Value Reference Range Interpretation Comments Red Blood Count (test code = 789-8) 3.45 4.3-5.7 L [facility] AmericaHemoglobin2019-04-06 06:11:00* Test Item Value Reference Range Interpretation Comments Hemoglobin (test code = 29695-7) 10.3 14.0-18.0 L [facility] AmericaHematocrit2019-04-06 06:11:00* Test Item Value Reference Range Interpretation Comments Hematocrit (test code = 4544-3) 32.4 38.2-49.6 L [facility] AmericaMean Corpuscular Qcauxw3571-63-27 06:11:00* Test Item Value Reference Range Interpretation Comments Mean Corpuscular Volume (test code = 787-2) 93.9 81-99 [facility] AmericaMean Corpuscular Kxodxhizjo3764-35-31 06:11:00* Test Item Value Reference Range Interpretation Comments Mean Corpuscular Hemoglobin (test code = 785-6) 29.9 28-32 [facility] AmericaMean Corpuscular Hemoglobin Concent 2018-07-25 06:11:00* Test Item Value Reference Range Interpretation Comments Mean Corpuscular Hemoglobin Concent (test code = 786-4) 31.8 31-35 [facility] AmericaRed Cell Distribution Ckbfi1531-30-13 06:11:00* Test Item Value Reference Range Interpretation Comments Red Cell Distribution Width (test code = 88019-3) 14.0 11.7 -14.4 [facility] AmericaPlatelet Lnuvm7872-23-46 06:11:00* Test Item Value Reference Range Interpretation Comments Platelet Count (test code = 777-3) 253 140-360 [facility] AmericaNeutrophils (%) (Auto)2018-07-25 06:11:00 * Test Item Value Reference Range Interpretation Comments Neutrophils (%) (Auto) (test code = 57959-2) 52.6 38.7-80.0 [facility] AmericaLymphocytes (%) (Auto)2018-07-25 06:11:00 * Test Item Value Reference Range Interpretation Comments Lymphocytes (%) (Auto) (test code = 736-9) 30.4 18.0-39.1 [facility] AmericaMonocytes (%) (Auto)2018-07-25 06:11:00* Test Item Value Reference Range Interpretation Comments Monocytes (%) (Auto) (test code = 5905-5) 9.4 4.4-11.3 [facility] AmericaEosinophils (%) (Auto)2018-07-25 06:11:00 * Test Item Value Reference Range Interpretation Comments Eosinophils (%) (Auto) (test code = 713-8) 6.7 0.0-6.0 H [facility] AmericaBasophils (%) (Auto)2018-07-25 06:11:00* Test Item Value Reference Range Interpretation Comments Basophils (%) (Auto) (test code = 706-2) 0.5 0.0-1.0 [facility] AmericaIM GRANULOCYTES %2018-07-25 06:11:00* Test Item Value Reference Range Interpretation Comments IM GRANULOCYTES % (test code = IM GRANULOCYTES %) 0.4 0.0- 1.0 [facility] AmericaNeutrophils # (Auto)2018-07-25 06:11:00* Test Item Value Reference Range Interpretation Comments Neutrophils # (Auto) (test code = 751-8) 4.1 2.1-6.9 [facility] AmericaLymphocytes # (Auto)2018-07-25 06:11:00* Test Item Value Reference Range Interpretation Comments Lymphocytes # (Auto) (test code = 41154-2) 2.4 1.0-3.2 [facility] AmericaMonocytes # (Auto)2018-07-25 06:11:00* Test Item Value Reference Range Interpretation Comments Monocytes # (Auto) (test code = 742-7) 0.7 0.2-0.8 [facility] AmericaEosinophils # (Auto)2018-07-25 06:11:00* Test Item Value Reference Range Interpretation Comments Eosinophils # (Auto) (test code = 711-2) 0.5 0.0-0.4 H [facility] AmericaBasophils # (Auto)2018-07-25 06:11:00* Test Item Value Reference Range Interpretation Comments Basophils # (Auto) (test code = 704-7) 0.0 0.0-0.1 [facility] AmericaAbsolute Immature Granulocyte (auto 2018-07-25 06:11:00* Test Item Value Reference Range Interpretation Comments Absolute Immature Granulocyte (auto (aaliyah t code = Absolute Immature Granulocyte (auto) 0.03 0-0.1 [facility] AmericaUrine Mgbthxe1069-25-68 11:53:00* Test Item Value Reference Range Interpretation Comments Urine Culture (test code = 630-4) Organism: ENTEROCOCCUS FAECALIS [facility] AmericaUrine Hfqckca4038-68-23 11:53:00* Test Item Value Reference Range Interpretation Comments Urine Culture (test code = 630-4) Organism: ENTEROCOCCUS FAECALIS [facility] of AmericaCT ABDOMEN/PELVIS MA5848-14-68 09:04:00 [place] [address] Patient Name: JOSE JUAN REYES MR #: [id number] : 1930 Age/Sex: 87/M Req #: [id number] Adm Physician: VIDAL COWAN MD Ordered by: NATALYA NIELSEN MD Report #: [id number] Location: MED/SURG Room/Bed: [facility] Procedure: [id number] CT/CT ABDOMEN/PELVIS WO Exam Date: 07/23/18 Exam Time: 083 5 REPORT STATUS: Signed EXAM: CT ABDOMEN AND PELVIS without IV CONTRAST DATE: 07/23/2018 Time stamp on Exam: 8: 44 AM INDICATION: Hematuria COMPARISON: None TECHNIQUE: The abdomen and pelvis were scanned using a multidetector helical scanner. Coronal and sagitt al reformations were obtained. Renal stone protocol was utilized. Technique mo dification was accomplished to maintain the lowest dose possible to the patien t. IV Contrast: None Oral Contrast: None Radiation Dose: Total DLP 4 88.79 mGy*cm Estimated effective dose: DLP x 0.015 x size factor FINDINGS : LOWER THORAX: No consolidations. Aortic and coronary artery calcification. LIVER: No masses with scattered granulomatous calcification. BILIARY: The gallbladder is unremarkable. No ductal dilatation. SPLEEN: No masses PINEDA CREAS: No masses ADRENALS: No nodules KIDNEYS: No hydronephrosis. Small right lower pole renal stone. Multiple hypodense lesions within the kidneys li deepa are cysts but difficult to characterize without IV contrast. Contour abno rmality with a possible right lower pole 3.1 cm solid mass. Renal mass protoco l CT is recommended for further evaluation. GI TRACT: No distention, wall th ickening or evidence of obstruction. VESSELS: Vascular calcification. PERITONEUM/RETROPERITONEUM: No free air or fluid LYMPH NODES: No lymphadenopa thy REPRODUCTIVE ORGANS: Unremarkable BLADDER: Catheter present within th e bladder. SOFT TISSUES: Fat-containing left inguinal hernia. BONES: No s uspicious bone lesions. Extensive degenerative changes of the spine.1 IMP RESSION: 1. Multiple hypodense lesions in both kidneys likely are cysts. 2. Contour abnormality of the right lower renal pole suggests a solid mass. 3. Nonobstructing small right renal stone. 4. CT scan with contrast (renal mass protocol) is recommended for further renal characterization especially in a pa tient with hematuria. 5.. Fat-containing left inguinal hernia. Signed by: Dr. Jonn Solares DO on 07/23/2018 9:20 AM Dictated By: JONN SOLARES DO 9 Transcribed By: MARLI URBANO on 07/23/18919 COPY TO: NATALYA NIELSEN MD Prothrombin Time 2018-07-22 19:58:00* Test Item Value Reference Range Interpretation Comments Prothrombin Time (test code = 5902-2) 13.3 11.9-14.5 [facility] AmericaProthromb Time International Ratio 2018-07-22 19:58:00* Test Item Value Reference Range Interpretation Comments Prothromb Time International Ratio (test code = 6301-6) 0.96 Oral Anticoagulant Therapy INR Values:1. Low Intensity Therapy 1.5 - 2.02 . Moderate Intensity Therapy 2.0 - 3.03. High Intensity Therapy(1) 2.5 - 3. 54. High Intensity Therapy(2) 3.0 - 4.05. Panic Value INR > 5.0 [facility] AmericaActivated Partial Thromboplast Time 2018-07-22 19:58:00* Test Item Value Reference Range Interpretation Comments Activated Partial Thromboplast Time (test code = 08696-6) 26.5 23.8-35.5 [facility] AmericaProthrombin Cvgk4751-10-58 19:58:00* Test Item Value Reference Range Interpretation Comments Prothrombin Time (test code = 5902-2) 13.3 11.9-14.5 [facility] AmericaProthromb Time International Ratio 2018-07-22 19:58:00* Test Item Value Reference Range Interpretation Comments Prothromb Time International Ratio (test code = 6301-6) 0.96 Oral Anticoagulant Therapy INR Values:1. Low Intensity Therapy 1.5 - 2.02 . Moderate Intensity Therapy 2.0 - 3.03. High Intensity Therapy(1) 2.5 - 3. 54. High Intensity Therapy(2) 3.0 - 4.05. Panic Value INR > 5.0 [facility] AmericaActivated Partial Thromboplast Time 2018-07-22 19:58:00* Test Item Value Reference Range Interpretation Comments Activated Partial Thromboplast Time (test code = 62609-4) 26.5 23.8-35.5 [facility] AmericaTotal Vdgdlczfu6851-03-38 16:33:00* Test Item Value Reference Range Interpretation Comments Total Bilirubin (test code = 1975-2) 0.4 0.2-1.2 [facility] AmericaAspartate Amino Transf (AST/SGOT) 2018-07-22 16:33:00* Test Item Value Reference Range Interpretation Comments Aspartate Amino Transf (AST/SGOT) (test code = Aspartate Amino Transf (AST/SGOT)) 12 5-34 [facility] AmericaAlanine Aminotransferase (ALT/SGPT) 2018-07-22 16:33:00* Test Item Value Reference Range Interpretation Comments Alanine Aminotransferase (ALT/SGPT) (test code = 1742-6) < 6 0-55 [facility] AmericaTotal Dptxiln4295-09-30 16:33:00* Test Item Value Reference Range Interpretation Comments Total Protein (test code = 2885-2) 7.7 6.5-8.1 [facility] AmericaAlbumin2019-04-03 16:33:00* Test Item Value Reference Range Interpretation Comments Albumin (test code = 1751-7) 3.7 3.5-5.0 [facility] AmericaGlobulin2019-04-03 16:33:00* Test Item Value Reference Range Interpretation Comments Globulin (test code = 14063-1) 4.0 2.3-3.5 H [facility] AmericaAlbumin/Globulin Hocdz7341-78-02 16:33:00 * Test Item Value Reference Range Interpretation Comments Albumin/Globulin Ratio (test code = 1759-0) 0.9 0.8-2.0 [facility] AmericaAlkaline Awtmkntblob3300-06-18 16:33:00* Test Item Value Reference Range Interpretation Comments Alkaline Phosphatase (test code = 6768-6) 95 40-150 [facility] AmericaTotal Bsqqzeinn2957-74-95 16:33:00* Test Item Value Reference Range Interpretation Comments Total Bilirubin (test code = 1975-2) 0.4 0.2-1.2 [facility] AmericaAspartate Amino Transf (AST/SGOT) 2018-07-22 16:33:00* Test Item Value Reference Range Interpretation Comments Aspartate Amino Transf (AST/SGOT) (test code = Aspartate Amino Transf (AST/SGOT)) 12 5-34 [facility] AmericaAlanine Aminotransferase (ALT/SGPT) 2018-07-22 16:33:00* Test Item Value Reference Range Interpretation Comments Alanine Aminotransferase (ALT/SGPT) (test code = 1742-6) < 6 0-55 [facility] Gdtuzni7750-18-07 16:33:00* Test Item Value Reference Range Interpretation Comments Total Protein (test code = 2885-2) 7.7 6.5-8.1 [facility] AmericaAlbumin2019-04-03 16:33:00* Test Item Value Reference Range Interpretation Comments Albumin (test code = 1751-7) 3.7 3.5-5.0 [facility] AmericaGlobulin2019-04-03 16:33:00* Test Item Value Reference Range Interpretation Comments Globulin (test code = 91542-3) 4.0 2.3-3.5 H [facility] AmericaAlbumin/Globulin Aaryk1805-63-59 16:33:00 * Test Item Value Reference Range Interpretation Comments Albumin/Globulin Ratio (test code = 1759-0) 0.9 0.8-2.0 [facility] AmericaAlkaline Pcvzwxppszu2889-91-89 16:33:00* Test Item Value Reference Range Interpretation Comments Alkaline Phosphatase (test code = 6768-6) 95 40-150 [facility] AmericaUrine Jubwa4765-90-76 15:08:00* Test Item Value Reference Range Interpretation Comments Urine Color (test code = 5778-6) RED YELLOW H [facility] AmericaUrine Ywivhtk0209-52-79 15:08:00* Test Item Value Reference Range Interpretation Comments Urine Clarity (test code = 72095-6) TURBID CLEAR H [facility] AmericaUrine Specific Pwjibho2801-14-72 15:08:00 * Test Item Value Reference Range Interpretation Comments Urine Specific [place] (test code = 5811-5) 1.025 1.010-1.02 5 [facility] AmericaUrine lR6385-81-30 15:08:00* Test Item Value Reference Range Interpretation Comments Urine pH (test code = 26209-8) 6 5-7 [facility] AmericaUrine Leukocyte Bqslkhul1887-46-85 15:08:00* Test Item Value Reference Range Interpretation Comments Urine Leukocyte Esterase (test code = 5799-2) TRACE NEGATIVE H [facility] AmericaUrine Yajaebi3752-87-80 15:08:00* Test Item Value Reference Range Interpretation Comments Urine Nitrite (test code = 22880-6) NEGATIVE NEGATIVE [facility] AmericaUrine Dldrevf1804-47-08 15:08:00* Test Item Value Reference Range Interpretation Comments Urine Protein (test code = 5804-0) 2+ NEGATIVE H [facility] AmericaUrine Glucose (UA)2018-07-22 15:08:00* Test Item Value Reference Range Interpretation Comments Urine Glucose (UA) (test code = 2349-9) NEGATIVE NEGATIVE [facility] AmericaUrine Rcqqxxj7742-28-22 15:08:00* Test Item Value Reference Range Interpretation Comments Urine Ketones (test code = 96048-3) NEGATIVE NEGATIVE [facility] Dhlospudsaco1725-28-29 15:08:00* Test Item Value Reference Range Interpretation Comments Urine Urobilinogen (test code = 15884-3) 0.2 0.2-1 [facility] Klybfolje4379-61-92 15:08:00* Test Item Value Reference Range Interpretation Comments Urine Bilirubin (test code = 1978-6) NEGATIVE NEGATIVE [facility] AmericaUrine Ifnlu6497-28-00 15:08:00* Test Item Value Reference Range Interpretation Comments Urine Blood (test code = 61441-7) 4+ NEGATIVE H [facility] AmericaUrine SBS1641-86-86 15:08:00* Test Item Value Reference Range Interpretation Comments Urine WBC (test code = 5821-4) 0-5 0-5 [facility] AmericaUrine MQJ2124-39-92 15:08:00* Test Item Value Reference Range Interpretation Comments Urine RBC (test code = 50564-7) >50 0-5 H [facility] AmericaUrine Vkysuqmu6989-99-91 15:08:00* Test Item Value Reference Range Interpretation Comments Urine Bacteria (test code = 97424-6) NONE NONE [facility] AmericaUrine Epithelial Aiaei6192-46-74 15:08:00 * Test Item Value Reference Range Interpretation Comments Urine Epithelial Cells (test code = 22170-7) NONE NONE [facility] AmericaUrine Zkqkd6832-77-35 15:08:00* Test Item Value Reference Range Interpretation Comments Urine Color (test code = 5778-6) RED YELLOW H [facility] AmericaUrine Juwafhe5834-04-73 15:08:00* Test Item Value Reference Range Interpretation Comments Urine Clarity (test code = 89184-9) TURBID CLEAR H [facility] AmericaUrine Specific Xbupyjq5601-50-54 15:08:00 * Test Item Value Reference Range Interpretation Comments Urine Specific [place] (test code = 5811-5) 1.025 1.010-1.02 5 [facility] AmericaUrine fM2487-14-77 15:08:00* Test Item Value Reference Range Interpretation Comments Urine pH (test code = 45446-3) 6 5-7 [facility] AmericaUrine Leukocyte Datuapjw4976-00-47 15:08:00* Test Item Value Reference Range Interpretation Comments Urine Leukocyte Esterase (test code = 5799-2) TRACE NEGATIVE H [facility] Wkmidgh2818-99-42 15:08:00* Test Item Value Reference Range Interpretation Comments Urine Nitrite (test code = 19344-6) NEGATIVE NEGATIVE [facility] AmericaUrine Yzecnnp9899-85-02 15:08:00* Test Item Value Reference Range Interpretation Comments Urine Protein (test code = 5804-0) 2+ NEGATIVE H [facility] AmericaUrine Glucose (UA)2018-07-22 15:08:00* Test Item Value Reference Range Interpretation Comments Urine Glucose (UA) (test code = 2349-9) NEGATIVE NEGATIVE [facility] AmericaUrine Caglrhn4835-24-37 15:08:00* Test Item Value Reference Range Interpretation Comments Urine Ketones (test code = 14805-6) NEGATIVE NEGATIVE [facility] AmericaUrine Ivowepuidnvg1565-34-86 15:08:00* Test Item Value Reference Range Interpretation Comments Urine Urobilinogen (test code = 80250-5) 0.2 0.2-1 [facility] AmericaUrine Ecynklczm5685-85-49 15:08:00* Test Item Value Reference Range Interpretation Comments Urine Bilirubin (test code = 1978-6) NEGATIVE NEGATIVE [facility] AmericaUrine Notrr4644-32-14 15:08:00* Test Item Value Reference Range Interpretation Comments Urine Blood (test code = 74283-5) 4+ NEGATIVE H [facility] AmericaUrine TXR0310-55-17 15:08:00* Test Item Value Reference Range Interpretation Comments Urine WBC (test code = 5821-4) 0-5 0-5 [facility] AmericaUrine VWD3341-72-25 15:08:00* Test Item Value Reference Range Interpretation Comments Urine RBC (test code = 56296-5) >50 0-5 H [facility] AmericaUrine Yvpoqczr2389-82-14 15:08:00* Test Item Value Reference Range Interpretation Comments Urine Bacteria (test code = 20343-1) NONE NONE [facility] AmericaUrine Epithelial Qjetg9096-49-42 15:08:00 * Test Item Value Reference Range Interpretation Comments Urine Epithelial Cells (test code = 40546-1) NONE NONE [facility] AmericaBedside Idyhkyr3073-58-90 11:55:00* Test Item Value Reference Range Interpretation Comments Bedside Glucose (test code = 00432-0) 130 70-120 H Meter ID: [id number] E. DeBakey [facility] of [facility] Medical Centerodium Level 2018-07-12 08:01:00* Test Item Value Reference Range Interpretation Comments Sodium Level (test code = 2951-2) 134 136-145 L [facility] AmericaPotassium Iqpjd7767-51-41 08:01:00* Test Item Value Reference Range Interpretation Comments Potassium Level (test code = 2823-3) 3.6 3.5-5.1 [facility] AmericaChloride Nfhnu4667-17-83 08:01:00* Test Item Value Reference Range Interpretation Comments Chloride Level (test code = 2075-0) 99 98-107 [facility] AmericaCarbon Dioxide Zlpns7850-88-58 08:01:00* Test Item Value Reference Range Interpretation Comments Carbon Dioxide Level (test code = 2028-9) 26 22-29 [facility] AmericaAnion Bqi4701-59-98 08:01:00* Test Item Value Reference Range Interpretation Comments Anion Gap (test code = 70494-4) 12.6 8-16 [facility] AmericaBlood Urea Gkunthew9066-26-13 08:01:00* Test Item Value Reference Range Interpretation Comments Blood Urea Nitrogen (test code = 3094-0) 30 7-26 H [facility] AmericaCreatinine2019-03-24 08:01:00* Test Item Value Reference Range Interpretation Comments Creatinine (test code = 2160-0) 2.23 0.72-1.25 H [facility] AmericaBUN/Creatinine Mdmbk8460-68-86 08:01:00* Test Item Value Reference Range Interpretation Comments BUN/Creatinine Ratio (test code = 3097-3) 13 6-25 [facility] AmericaEstimat Glomerular Filtration Rate 2018-07-12 08:01:00* Test Item Value Reference Range Interpretation Comments Estimat Glomerular Filtration Rate (test code = 567433737) 28 >60 L Ranges were taken from the National Kidney Disease Education Program and the [facility] literature.Reference ranges:60 or greater: Lxhuhv15-52 ( for 3 consecutive months): Chronic kidney disease 15 or less: Kidney failureSurgery Specialty Hospitals of AmericaGlucose Mkear5641-87-25 08:01:00* Test Item Value Reference Range Interpretation Comments Glucose Level (test code = LCI6980) 144 74-118 H [facility] AmericaCalcium Flpog5971-53-34 08:01:00* Test Item Value Reference Range Interpretation Comments Calcium Level (test code = 88026-3) 9.1 8.4-10.2 [facility] AmericaPhosphorus Hlrat4895-33-73 08:01:00* Test Item Value Reference Range Interpretation Comments Phosphorus Level (test code = GWK9381) 3.1 2.3-4.7 [facility] AmericaMagnesium Uyrjv8538-39-77 08:01:00* Test Item Value Reference Range Interpretation Comments Magnesium Level (test code = 82495-4) 2.2 1.3-2.1 H [facility] AmericaPhosphorus Udlch7453-08-98 08:01:00* Test Item Value Reference Range Interpretation Comments Phosphorus Level (test code = WSS1381) 3.1 2.3-4.7 [facility] AmericaMagnesium Wmtbp9369-80-40 08:01:00* Test Item Value Reference Range Interpretation Comments Magnesium Level (test code = 14270-3) 2.2 1.3-2.1 H [facility] AmericaPhosphorus Sataa9263-30-70 08:01:00* Test Item Value Reference Range Interpretation Comments Phosphorus Level (test code = XKP3730) 3.1 2.3-4.7 [facility] AmericaMagnesium Mghmd4245-99-68 08:01:00* Test Item Value Reference Range Interpretation Comments Magnesium Level (test code = 37697-4) 2.2 1.3-2.1 H [facility] AmericaWhite Blood Hyfdp2112-63-88 15:28:00* Test Item Value Reference Range Interpretation Comments White Blood Count (test code = 6690-2) 9.65 4.8-10.8 [facility] AmericaRed Blood Cwrlc9302-76-84 15:28:00* Test Item Value Reference Range Interpretation Comments Red Blood Count (test code = 789-8) 3.98 4.3-5.7 L [facility] AmericaHemoglobin2019-03-23 15:28:00* Test Item Value Reference Range Interpretation Comments Hemoglobin (test code = 83860-3) 12.0 14.0-18.0 L [facility] AmericaHematocrit2019-03-23 15:28:00* Test Item Value Reference Range Interpretation Comments Hematocrit (test code = 4544-3) 36.3 38.2-49.6 L [facility] AmericaMean Corpuscular Ndsjwk3315-85-13 15:28:00* Test Item Value Reference Range Interpretation Comments Mean Corpuscular Volume (test code = 787-2) 91.2 81-99 [facility] AmericaMean Corpuscular Lmxhjociwy8689-82-64 15:28:00* Test Item Value Reference Range Interpretation Comments Mean Corpuscular Hemoglobin (test code = 785-6) 30.2 28-32 [facility] AmericaMean Corpuscular Hemoglobin Concent 2018-07-11 15:28:00* Test Item Value Reference Range Interpretation Comments Mean Corpuscular Hemoglobin Concent (test code = 786-4) 33.1 31-35 [facility] AmericaRed Cell Distribution Psxlh3207-04-47 15:28:00* Test Item Value Reference Range Interpretation Comments Red Cell Distribution Width (test code = 17616-2) 14.4 11.7 -14.4 [facility] AmericaPlatelet Ihjqq6638-29-73 15:28:00* Test Item Value Reference Range Interpretation Comments Platelet Count (test code = 777-3) 238 140-360 [facility] AmericaNeutrophils (%) (Auto)2018-07-11 15:28:00 * Test Item Value Reference Range Interpretation Comments Neutrophils (%) (Auto) (test code = 89809-9) 71.0 38.7-80.0 [facility] AmericaLymphocytes (%) (Auto)2018-07-11 15:28:00 * Test Item Value Reference Range Interpretation Comments Lymphocytes (%) (Auto) (test code = 736-9) 14.4 18.0-39.1 L [facility] AmericaMonocytes (%) (Auto)2018-07-11 15:28:00* Test Item Value Reference Range Interpretation Comments Monocytes (%) (Auto) (test code = 5905-5) 12.5 4.4-11.3 H [facility] AmericaEosinophils (%) (Auto)2018-07-11 15:28:00 * Test Item Value Reference Range Interpretation Comments Eosinophils (%) (Auto) (test code = 713-8) 1.2 0.0-6.0 [facility] AmericaBasophils (%) (Auto)2018-07-11 15:28:00* Test Item Value Reference Range Interpretation Comments Basophils (%) (Auto) (test code = 706-2) 0.5 0.0-1.0 [facility] AmericaIM GRANULOCYTES %2018-07-11 15:28:00* Test Item Value Reference Range Interpretation Comments IM GRANULOCYTES % (test code = IM GRANULOCYTES %) 0.4 0.0- 1.0 [facility] AmericaNeutrophils # (Auto)2018-07-11 15:28:00* Test Item Value Reference Range Interpretation Comments Neutrophils # (Auto) (test code = 751-8) 6.8 2.1-6.9 [facility] AmericaLymphocytes # (Auto)2018-07-11 15:28:00* Test Item Value Reference Range Interpretation Comments Lymphocytes # (Auto) (test code = 47652-3) 1.4 1.0-3.2 [facility] AmericaMonocytes # (Auto)2018-07-11 15:28:00* Test Item Value Reference Range Interpretation Comments Monocytes # (Auto) (test code = 742-7) 1.2 0.2-0.8 H [facility] AmericaEosinophils # (Auto)2018-07-11 15:28:00* Test Item Value Reference Range Interpretation Comments Eosinophils # (Auto) (test code = 711-2) 0.1 0.0-0.4 [facility] AmericaBasophils # (Auto)2018-07-11 15:28:00* Test Item Value Reference Range Interpretation Comments Basophils # (Auto) (test code = 704-7) 0.1 0.0-0.1 [facility] AmericaAbsolute Immature Granulocyte (auto 2018-07-11 15:28:00* Test Item Value Reference Range Interpretation Comments Absolute Immature Granulocyte (auto (aaliyah t code = Absolute Immature Granulocyte (auto) 0.04 0-0.1 [facility] AmericaTriglycerides Xggxx1073-02-59 09:05:00* Test Item Value Reference Range Interpretation Comments Triglycerides Level (test code = 2571-8) 94 0-149 [facility] AmericaCholesterol Nqpcz5967-37-29 09:05:00* Test Item Value Reference Range Interpretation Comments Cholesterol Level (test code = 2093-3) 146 0-199 Less than 200 mg/dL Low Wfjw486 - 239 mg/dL Borderline Scrm098 m g/dl and greater High Risk [facility] of AmericaLDL Otzenidxptb4311-41-92 09:05:00* Test Item Value Reference Range Interpretation Comments LDL Cholesterol (test code = 2089-1) 76 60-130 [facility] Gpzwfojhtbk0421-04-91 09:05:00* Test Item Value Reference Range Interpretation Comments HDL Cholesterol (test code = 2085-9) 51 40-60 [facility] AmericaCholesterol/HDL Penma9352-55-97 09:05:00 * Test Item Value Reference Range Interpretation Comments Cholesterol/HDL Ratio (test code = 9830-1) 2.9 3.9-4.7 L [facility] AmericaTriglycerides Yirwf0808-40-01 09:05:00* Test Item Value Reference Range Interpretation Comments Triglycerides Level (test code = 2571-8) 94 0-149 [facility] AmericaCholesterol Ydnvw5793-03-39 09:05:00* Test Item Value Reference Range Interpretation Comments Cholesterol Level (test code = 2093-3) 146 0-199 Less than 200 mg/dL Low Qymb899 - 239 mg/dL Borderline Ljru965 m g/dl and greater High Risk [facility] AmericaLDL Iioebqwlaof6662-92-37 09:05:00* Test Item Value Reference Range Interpretation Comments LDL Cholesterol (test code = 2089-1) 76 60-130 [facility] Hmelgukxaif3156-05-98 09:05:00* Test Item Value Reference Range Interpretation Comments HDL Cholesterol (test code = 2085-9) 51 40-60 [facility] AmericaCholesterol/HDL Bqwpb0442-48-16 09:05:00 * Test Item Value Reference Range Interpretation Comments Cholesterol/HDL Ratio (test code = 9830-1) 2.9 3.9-4.7 L [facility] AmericaTriglycerides Cwlcn9032-85-82 09:05:00* Test Item Value Reference Range Interpretation Comments Triglycerides Level (test code = 2571-8) 94 0-149 [facility] AmericaCholesterol Yvypt1543-20-49 09:05:00* Test Item Value Reference Range Interpretation Comments Cholesterol Level (test code = 2093-3) 146 0-199 Less than 200 mg/dL Low Uhej831 - 239 mg/dL Borderline Nedk476 m g/dl and greater High Risk [facility] AmericaLDL Unwpnxmnann5774-66-02 09:05:00* Test Item Value Reference Range Interpretation Comments LDL Cholesterol (test code = 2089-1) 76 60-130 [facility] of AmericaHDL Buqxlvgyvuo5454-27-23 09:05:00* Test Item Value Reference Range Interpretation Comments HDL Cholesterol (test code = 2085-9) 51 40-60 [facility] AmericaCholesterol/HDL Kozws6719-48-99 09:05:00 * Test Item Value Reference Range Interpretation Comments Cholesterol/HDL Ratio (test code = 9830-1) 2.9 3.9-4.7 L [facility] AmericaHemoglobin A1c Lzxxyft7908-55-24 09:04:00 * Test Item Value Reference Range Interpretation Comments Hemoglobin A1c Percent (test code = Hemoglobin A1c Percent) 6.9 4.0-7.0 [facility] AmericaHemoglobin A1c Bdiueor5958-40-96 09:04:00 * Test Item Value Reference Range Interpretation Comments Hemoglobin A1c Percent (test code = Hemoglobin A1c Percent) 6.9 4.0-7.0 [facility] AmericaHemoglobin A1c Nbhfecl9863-85-85 09:04:00 * Test Item Value Reference Range Interpretation Comments Hemoglobin A1c Percent (test code = Hemoglobin A1c Percent) 6.9 4.0-7.0 [facility] AmericaProthrombin Cdun3935-51-11 05:33:00* Test Item Value Reference Range Interpretation Comments Prothrombin Time (test code = 5902-2) 13.8 11.9-14.5 [facility] AmericaProthromb Time International Ratio 2018-07-10 05:33:00* Test Item Value Reference Range Interpretation Comments Prothromb Time International Ratio (test code = 6301-6) 1.01 Oral Anticoagulant Therapy INR Values:1. Low Intensity Therapy 1.5 - 2.02 . Moderate Intensity Therapy 2.0 - 3.03. High Intensity Therapy(1) 2.5 - 3. 54. High Intensity Therapy(2) 3.0 - 4.05. Panic Value INR > 5.0 [facility] AmericaActivated Partial Thromboplast Time 2018-07-10 05:33:00* Test Item Value Reference Range Interpretation Comments Activated Partial Thromboplast Time (test code = 82798-3) 30.1 23.8-35.5 [facility] AmericaUrine NDZ0718-64-82 11:50:00* Test Item Value Reference Range Interpretation Comments Urine WBC (test code = 5821-4) NONE 0-5 [facility] AmericaUrine ZDS3491-49-97 11:50:00* Test Item Value Reference Range Interpretation Comments Urine RBC (test code = 34496-8) >50 0-5 H [facility] AmericaUrine Uebbczhu3057-19-54 11:50:00* Test Item Value Reference Range Interpretation Comments Urine Bacteria (test code = 67013-2) NONE NONE [facility] AmericaUrine Epithelial Gqinb4643-74-38 11:50:00 * Test Item Value Reference Range Interpretation Comments Urine Epithelial Cells (test code = 46221-4) NONE NONE [facility] AmericaUrine Pratp1745-86-05 11:39:00* Test Item Value Reference Range Interpretation Comments Urine Color (test code = 5778-6) RED YELLOW H [facility] AmericaUrine Swewzbq3014-75-47 11:39:00* Test Item Value Reference Range Interpretation Comments Urine Clarity (test code = 40241-4) TURBID CLEAR H [facility] AmericaUrine Specific Noakbur2956-75-38 11:39:00 * Test Item Value Reference Range Interpretation Comments Urine Specific [place] (test code = 5811-5) 1.020 1.010-1.02 5 [facility] AmericaUrine fG3071-38-93 11:39:00* Test Item Value Reference Range Interpretation Comments Urine pH (test code = 66889-9) 6.5 5-7 [facility] AmericaUrine Leukocyte Jipgsyol5654-71-94 11:39:00* Test Item Value Reference Range Interpretation Comments Urine Leukocyte Esterase (test code = 5799-2) NEGATIVE NEGATIVE [facility] AmericaUrine Lbwjjam8136-27-49 11:39:00* Test Item Value Reference Range Interpretation Comments Urine Nitrite (test code = 47352-9) NEGATIVE NEGATIVE [facility] AmericaUrine Xyhlhee6529-94-27 11:39:00* Test Item Value Reference Range Interpretation Comments Urine Protein (test code = 5804-0) 3+ NEGATIVE H [facility] AmericaUrine Glucose (UA)2018-07-09 11:39:00* Test Item Value Reference Range Interpretation Comments Urine Glucose (UA) (test code = 2349-9) NEGATIVE NEGATIVE [facility] AmericaUrine Jxxdhqp8576-21-38 11:39:00* Test Item Value Reference Range Interpretation Comments Urine Ketones (test code = 16460-3) NEGATIVE NEGATIVE [facility] AmericaUrine Pvztzahninat6573-42-45 11:39:00* Test Item Value Reference Range Interpretation Comments Urine Urobilinogen (test code = 45091-9) 0.2 0.2-1 [facility] AmericaUrine Zaoifatrm8163-28-90 11:39:00* Test Item Value Reference Range Interpretation Comments Urine Bilirubin (test code = 1978-6) NEGATIVE NEGATIVE [facility] AmericaUrine Gffvq4016-65-22 11:39:00* Test Item Value Reference Range Interpretation Comments Urine Blood (test code = 38014-8) 4+ NEGATIVE H [facility] of AmericaB-Type Natriuretic Wonnsza4953-93-84 11:21:00* Test Item Value Reference Range Interpretation Comments B-Type Natriuretic Peptide (test code = 17233-1) 161.6 0-100 H [facility] AmericaB-Type Natriuretic Dehasjp0556-44-71 11:21:00* Test Item Value Reference Range Interpretation Comments B-Type Natriuretic Peptide (test code = 93456-0) 161.6 0-100 H [facility] AmericaB-Type Natriuretic Xfmeuwm4612-73-19 11:21:00* Test Item Value Reference Range Interpretation Comments B-Type Natriuretic Peptide (test code = 47193-6) 161.6 0-100 H [facility] of AmericaB-Type Natriuretic Awmfwok6397-07-21 11:21:00* Test Item Value Reference Range Interpretation Comments B-Type Natriuretic Peptide (test code = 49715-0) 161.6 0-100 H [facility] Centerodium Yneaa5042-52-54 11:14:00* Test Item Value Reference Range Interpretation Comments Sodium Level (test code = 2951-2) 136 136-145 [facility] AmericaPotassium Mpgso1167-89-91 11:14:00* Test Item Value Reference Range Interpretation Comments Potassium Level (test code = 2823-3) 4.4 3.5-5.1 [facility] AmericaChloride Nbqfd6842-74-12 11:14:00* Test Item Value Reference Range Interpretation Comments Chloride Level (test code = 2075-0) 104 98-107 [facility] AmericaCarbon Dioxide Ialay6113-66-09 11:14:00* Test Item Value Reference Range Interpretation Comments Carbon Dioxide Level (test code = 2028-9) 22 22-29 [facility] AmericaAnion Hfy7334-99-37 11:14:00* Test Item Value Reference Range Interpretation Comments Anion Gap (test code = 52072-5) 14.4 8-16 [facility] AmericaBlood Urea Mrkleetk4017-47-93 11:14:00* Test Item Value Reference Range Interpretation Comments Blood Urea Nitrogen (test code = 3094-0) 25 7-26 [facility] AmericaCreatinine2018-12-23 11:14:00* Test Item Value Reference Range Interpretation Comments Creatinine (test code = 2160-0) 1.92 0.72-1.25 H [facility] AmericaBUN/Creatinine Tsjso0103-09-52 11:14:00* Test Item Value Reference Range Interpretation Comments BUN/Creatinine Ratio (test code = 3097-3) 13 6-25 [facility] AmericaEstimat Glomerular Filtration Rate 2018-04-12 11:14:00* Test Item Value Reference Range Interpretation Comments Estimat Glomerular Filtration Rate (test code = 763480389) 33 >60 L Ranges were taken from the National Kidney Disease Education Program and the [facility] literature.Reference ranges:60 or greater: Garles39-60 ( for 3 consecutive months): Chronic kidney disease 15 or less: Kidney failureSurgery Specialty Hospitals of AmericaGlucose Gwski9344-78-30 11:14:00* Test Item Value Reference Range Interpretation Comments Glucose Level (test code = QKD9805) 132 74-118 H [facility] AmericaCalcium Cpkjc6583-58-68 11:14:00* Test Item Value Reference Range Interpretation Comments Calcium Level (test code = 25305-9) 9.4 8.4-10.2 [facility] AmericaCreatine Kqwsrh7783-13-91 11:14:00* Test Item Value Reference Range Interpretation Comments Creatine Kinase (test code = 2157-6) 67 30-200 [facility] AmericaCreatine Kinase HF7751-80-29 11:14:00* Test Item Value Reference Range Interpretation Comments Creatine Kinase MB (test code = 10365-9) 1.60 0-5.0 [facility] AmericaTroponin U8114-23-29 11:14:00* Test Item Value Reference Range Interpretation Comments Troponin I (test code = LDN1932) 0.145 0-0.300 [facility] AmericaCreatine Vgwbnq9610-31-55 11:14:00* Test Item Value Reference Range Interpretation Comments Creatine Kinase (test code = 2157-6) 67 30-200 [facility] AmericaCreatine Kinase YU8845-55-93 11:14:00* Test Item Value Reference Range Interpretation Comments Creatine Kinase MB (test code = 39247-4) 1.60 0-5.0 [facility] AmericaTroponin [id number] 11:14:00* Test Item Value Reference Range Interpretation Comments Troponin I (test code = LJM4474) 0.145 0-0.300 [facility] AmericaCreatine Phetfd2966-67-21 11:14:00* Test Item Value Reference Range Interpretation Comments Creatine Kinase (test code = 2157-6) 67 30-200 [facility] AmericaCreatine Kinase DL3084-86-03 11:14:00* Test Item Value Reference Range Interpretation Comments Creatine Kinase MB (test code = 92266-6) 1.60 0-5.0 [facility] AmericaTroponin T8479-32-31 11:14:00* Test Item Value Reference Range Interpretation Comments Troponin I (test code = CZS5744) 0.145 0-0.300 [facility] AmericaCreatine Hiogmz0965-54-73 11:14:00* Test Item Value Reference Range Interpretation Comments Creatine Kinase (test code = 2157-6) 67 30-200 [facility] AmericaCreatine Kinase GB9433-69-03 11:14:00* Test Item Value Reference Range Interpretation Comments Creatine Kinase MB (test code = 72648-2) 1.60 0-5.0 [facility] AmericaTropon Q5143-71-47 11:14:00* Test Item Value Reference Range Interpretation Comments Troponin I (test code = THD7630) 0.145 0-0.300 [facility] AmericaWhite Blood Bdmyg3720-62-68 10:36:00* Test Item Value Reference Range Interpretation Comments White Blood Count (test code = 6690-2) 7.42 4.8-10.8 [facility] AmericaRed Blood Afdca3110-32-81 10:36:00* Test Item Value Reference Range Interpretation Comments Red Blood Count (test code = 789-8) 3.71 4.3-5.7 L [facility] AmericaHemoglobin2018-12-23 10:36:00* Test Item Value Reference Range Interpretation Comments Hemoglobin (test code = 07998-4) 11.1 14.0-18.0 L [facility] AmericaHematocrit2018-12-23 10:36:00* Test Item Value Reference Range Interpretation Comments Hematocrit (test code = 4544-3) 34.1 38.2-49.6 L [facility] AmericaMean Corpuscular Jqpxae2915-69-03 10:36:00* Test Item Value Reference Range Interpretation Comments Mean Corpuscular Volume (test code = 787-2) 91.9 81-99 [facility] AmericaMean Corpuscular Rdcpurnylh4254-65-70 10:36:00* Test Item Value Reference Range Interpretation Comments Mean Corpuscular Hemoglobin (test code = 785-6) 29.9 28-32 [facility] AmericaMean Corpuscular Hemoglobin Concent 2018-04-12 10:36:00* Test Item Value Reference Range Interpretation Comments Mean Corpuscular Hemoglobin Concent (test code = 786-4) 32.6 31-35 [facility] AmericaRed Cell Distribution Drqkz1327-76-11 10:36:00* Test Item Value Reference Range Interpretation Comments Red Cell Distribution Width (test code = 82280-7) 13.4 11.7 -14.4 [facility] AmericaPlatelet Kgaxw3083-87-04 10:36:00* Test Item Value Reference Range Interpretation Comments Platelet Count (test code = 777-3) 247 140-360 [facility] AmericaNeutrophils (%) (Auto)2018-04-12 10:36:00 * Test Item Value Reference Range Interpretation Comments Neutrophils (%) (Auto) (test code = 57558-4) 64.5 38.7-80.0 [facility] AmericaLymphocytes (%) (Auto)2018-04-12 10:36:00 * Test Item Value Reference Range Interpretation Comments Lymphocytes (%) (Auto) (test code = 736-9) 23.9 18.0-39.1 [facility] AmericaMonocytes (%) (Auto)2018-04-12 10:36:00* Test Item Value Reference Range Interpretation Comments Monocytes (%) (Auto) (test code = 5905-5) 8.2 4.4-11.3 [facility] AmericaEosinophils (%) (Auto)2018-04-12 10:36:00 * Test Item Value Reference Range Interpretation Comments Eosinophils (%) (Auto) (test code = 713-8) 2.6 0.0-6.0 [facility] AmericaBasophils (%) (Auto)2018-04-12 10:36:00* Test Item Value Reference Range Interpretation Comments Basophils (%) (Auto) (test code = 706-2) 0.5 0.0-1.0 [facility] AmericaIM GRANULOCYTES %2018-04-12 10:36:00* Test Item Value Reference Range Interpretation Comments IM GRANULOCYTES % (test code = IM GRANULOCYTES %) 0.3 0.0- 1.0 [facility] AmericaNeutrophils # (Auto)2018-04-12 10:36:00* Test Item Value Reference Range Interpretation Comments Neutrophils # (Auto) (test code = 751-8) 4.8 2.1-6.9 [facility] AmericaLymphocytes # (Auto)2018-04-12 10:36:00* Test Item Value Reference Range Interpretation Comments Lymphocytes # (Auto) (test code = 88852-5) 1.8 1.0-3.2 [facility] AmericaMonocytes # (Auto)2018-04-12 10:36:00* Test Item Value Reference Range Interpretation Comments Monocytes # (Auto) (test code = 742-7) 0.6 0.2-0.8 [facility] AmericaEosinophils # (Auto)2018-04-12 10:36:00* Test Item Value Reference Range Interpretation Comments Eosinophils # (Auto) (test code = 711-2) 0.2 0.0-0.4 [facility] AmericaBasophils # (Auto)2018-04-12 10:36:00* Test Item Value Reference Range Interpretation Comments Basophils # (Auto) (test code = 704-7) 0.0 0.0-0.1 [facility] AmericaAbsolute Immature Granulocyte (auto 2018-04-12 10:36:00* Test Item Value Reference Range Interpretation Comments Absolute Immature Granulocyte (auto (aaliyah t code = Absolute Immature Granulocyte (auto) 0.02 0-0.1 [facility] AmericaCHEST 2 [id number] 09:37:00 [facility] [address] [place] [address] Patient Name: JOSE JUAN REYES MR #: [id number] : 1930 Age/Sex: 87/M Req #: [id number] Adm Physician: Ordered by: RUBI WESTON MD Report #: [id number] Location: ER Room/Bed: Procedure: [id number] DX/CHEST 2 VIEWS Exam Date: 04/12/18 Exam Time: 919 REPORT STATUS: Signed EXAMINAT ION: CHEST 2 VIEWS INDICATION: SOB [id number] OMPARISON: 02/28/2018 FINDINGS: PA and lateral views TUBES and LINES: None. LUNGS: Lungs are well inflated. Mild left basilar hazy opac ification. PLEURA: No pleural effusion or pneumothorax. HEART A ND MEDIASTINUM: The cardiomediastinal silhouette is unremarkable. BONE S AND SOFT TISSUES: No acute osseous lesion. Degenerative changes of thoracic spine and right glenohumeral joint. Soft tissues are unremarkable. UPPER A BDOMEN: No free air under the diaphragm. IMPRESSION: Mild left basil ar hazy opacification, likely subsegmental atelectasis. Otherwise, unremarkabl e. Signed by: Dr. Ld Husain MD on 04/12/2018 9:39 AM Dictate d By: LD HUSAIN MD 0 939 Transcribed By: JUDD on 04/12/18 0939 COPY TO: RUBI WESTON Bedside Rekncxp2824-46-27 20:55:00* Test Item Value Reference Range Interpretation Comments Bedside Glucose (test code = 90934-1) 203 70-120 H Meter ID: [id number] Specialty Hospitals of AmericaTriglycerides Level 2018-03-02 15:33:00* Test Item Value Reference Range Interpretation Comments Triglycerides Level (test code = 2571-8) 103 0-149 [facility] AmericaCholesterol Kmjrk1602-95-90 15:33:00* Test Item Value Reference Range Interpretation Comments Cholesterol Level (test code = 2093-3) 130 0-199 Less than 200 mg/dL Low Luuz694 - 239 mg/dL Borderline Zmks465 m g/dl and greater High Risk [facility]als of AmericaLDL Ooiohjokgva6672-97-38 15:33:00* Test Item Value Reference Range Interpretation Comments LDL Cholesterol (test code = 2089-1) 67 60-130 [facility] of AmericaHDL Zyrvwieuzdi8811-18-98 15:33:00* Test Item Value Reference Range Interpretation Comments HDL Cholesterol (test code = 2085-9) 42 40-60 [facility] AmericaCholesterol/HDL Dyeps4726-88-81 15:33:00 * Test Item Value Reference Range Interpretation Comments Cholesterol/HDL Ratio (test code = 9830-1) 3.1 3.9-4.7 L [facility] AmericaHemoglobin A1c Anurvat2751-16-76 15:19:00 * Test Item Value Reference Range Interpretation Comments Hemoglobin A1c Percent (test code = Hemoglobin A1c Percent) 6.6 4.0-7.0 [facility] of AmericaTotal Kuivbvray3658-36-67 06:43:00* Test Item Value Reference Range Interpretation Comments Total Bilirubin (test code = 1975-2) 0.6 0.2-1.2 [facility] of AmericaAspartate Amino Transf (AST/SGOT) 2018-03-01 06:43:00* Test Item Value Reference Range Interpretation Comments Aspartate Amino Transf (AST/SGOT) (test code = Aspartate Amino Transf (AST/SGOT)) 14 5-34 [facility] AmericaAlanine Aminotransferase (ALT/SGPT) 2018-03-01 06:43:00* Test Item Value Reference Range Interpretation Comments Alanine Aminotransferase (ALT/SGPT) (test code = 1742-6) < 6 0-55 [facility] of AmericaTotal Raizees1780-22-88 06:43:00* Test Item Value Reference Range Interpretation Comments Total Protein (test code = 2885-2) 6.3 6.5-8.1 L [facility] AmericaAlbumin2018-11-11 06:43:00* Test Item Value Reference Range Interpretation Comments Albumin (test code = 1751-7) 3.2 3.5-5.0 L [facility] AmericaGlobulin2018-11-11 06:43:00* Test Item Value Reference Range Interpretation Comments Globulin (test code = 30540-9) 3.1 2.3-3.5 [facility] AmericaAlbumin/Globulin Fsulw8177-50-92 06:43:00 * Test Item Value Reference Range Interpretation Comments Albumin/Globulin Ratio (test code = 1759-0) 1.0 0.8-2.0 [facility] of AmericaAlkaline Spbgcprbomz2632-46-10 06:43:00* Test Item Value Reference Range Interpretation Comments Alkaline Phosphatase (test code = 6768-6) 59 40-150 [facility] of AmericaTotal Vjidohakh3311-34-36 06:43:00* Test Item Value Reference Range Interpretation Comments Total Bilirubin (test code = 1975-2) 0.6 0.2-1.2 [facility]als of AmericaAspartate Amino Transf (AST/SGOT) 2018-03-01 06:43:00* Test Item Value Reference Range Interpretation Comments Aspartate Amino Transf (AST/SGOT) (test code = Aspartate Amino Transf (AST/SGOT)) 14 5-34 [facility]als of AmericaAlanine Aminotransferase (ALT/SGPT) 2018-03-01 06:43:00* Test Item Value Reference Range Interpretation Comments Alanine Aminotransferase (ALT/SGPT) (test code = 1742-6) < 6 0-55 [facility] of AmericaTotal Wwcbuzd2096-94-83 06:43:00* Test Item Value Reference Range Interpretation Comments Total Protein (test code = 2885-2) 6.3 6.5-8.1 L [facility] AmericaAlbumin2018-11-11 06:43:00* Test Item Value Reference Range Interpretation Comments Albumin (test code = 1751-7) 3.2 3.5-5.0 L [facility] AmericaGlobulin2018-11-11 06:43:00* Test Item Value Reference Range Interpretation Comments Globulin (test code = 54053-5) 3.1 2.3-3.5 [facility] AmericaAlbumin/Globulin Wgysx9003-90-38 06:43:00 * Test Item Value Reference Range Interpretation Comments Albumin/Globulin Ratio (test code = 1759-0) 1.0 0.8-2.0 [facility] AmericaAlkaline Unhdbcsyitc8213-31-26 06:43:00* Test Item Value Reference Range Interpretation Comments Alkaline Phosphatase (test code = 6768-6) 59 40-150 [facility] AmericaMagnesium Zpmui0407-12-16 09:46:00* Test Item Value Reference Range Interpretation Comments Magnesium Level (test code = 72068-9) 2.9 1.3-2.1 H [facility] of AmericaProthrombin Tges9431-81-97 09:39:00* Test Item Value Reference Range Interpretation Comments Prothrombin Time (test code = 5902-2) 14.8 11.9-14.5 H [facility]als of AmericaProthromb Time International Ratio 2018-02-28 09:39:00* Test Item Value Reference Range Interpretation Comments Prothromb Time International Ratio (test code = 6301-6) 1.06 Oral Anticoagulant Therapy INR Values:1. Low Intensity Therapy 1.5 - 2.02 . Moderate Intensity Therapy 2.0 - 3.03. High Intensity Therapy(1) 2.5 - 3. 54. High Intensity Therapy(2) 3.0 - 4.05. Panic Value INR > 5.0 [facility] AmericaActivated Partial Thromboplast Time 2018-02-28 09:39:00* Test Item Value Reference Range Interpretation Comments Activated Partial Thromboplast Time (test code = 14357-0) 30.3 23.8-35.5 [facility] AmericaUrine DEG2479-21-65 09:30:00* Test Item Value Reference Range Interpretation Comments Urine WBC (test code = 5821-4) 11-20 0-5 H [facility] of AmericaUrine NKD7413-20-50 09:30:00* Test Item Value Reference Range Interpretation Comments Urine RBC (test code = 08146-0) >50 0-5 H [facility] of AmericaUrine Fbfpaiwz6428-18-39 09:30:00* Test Item Value Reference Range Interpretation Comments Urine Bacteria (test code = 19385-3) FEW NONE [facility] AmericaUrine Epithelial Iukzn4667-97-64 09:30:00 * Test Item Value Reference Range Interpretation Comments Urine Epithelial Cells (test code = 65868-1) FEW NONE [facility] Owezw3697-18-45 09:30:00* Test Item Value Reference Range Interpretation Comments Urine Mucus (test code = 8247-9) FEW RARE [facility] Brmfi6137-25-57 09:30:00* Test Item Value Reference Range Interpretation Comments Urine Mucus (test code = 8247-9) FEW [facility] Kgvwf2419-90-39 09:30:00* Test Item Value Reference Range Interpretation Comments Urine Mucus (test code = 8247-9) FEW [facility] Jjhag6546-60-60 09:30:00* Test Item Value Reference Range Interpretation Comments Urine Mucus (test code = 8247-9) FEW [facility] Dffgu6098-58-95 09:25:00* Test Item Value Reference Range Interpretation Comments Urine Color (test code = 5778-6) RED YELLOW [facility] Xnrysml0424-06-33 09:25:00* Test Item Value Reference Range Interpretation Comments Urine Clarity (test code = 96936-0) CLOUDY CLEAR [facility] Fxbxzra5378-76-93 09:25:00 * Test Item Value Reference Range Interpretation Comments Urine Specific [place] (test code = 5811-5) 1.020 1.010-1.02 5 [facility] bQ1952-17-64 09:25:00* Test Item Value Reference Range Interpretation Comments Urine pH (test code = 95540-8) 7 5-7 [facility] Leukocyte Jhppyaqi5241-53-60 09:25:00* Test Item Value Reference Range Interpretation Comments Urine Leukocyte Esterase (test code = 5799-2) 2+ NEGATIVE [facility] Gtnttcr6259-06-65 09:25:00* Test Item Value Reference Range Interpretation Comments Urine Nitrite (test code = 37903-8) POSITIVE NEGATIVE H [facility] AmericaUrine Pfnjpsl5542-69-36 09:25:00* Test Item Value Reference Range Interpretation Comments Urine Protein (test code = 5804-0) 3+ NEGATIVE H [facility] AmericaUrine Glucose (UA)2018-02-28 09:25:00* Test Item Value Reference Range Interpretation Comments Urine Glucose (UA) (test code = 2349-9) 1+ NEGATIVE H [facility] AmericaUrine Bkggtwv7899-60-33 09:25:00* Test Item Value Reference Range Interpretation Comments Urine Ketones (test code = 92010-5) 1+ NEGATIVE H [facility] AmericaUrine Fxdcckajepot5632-53-40 09:25:00* Test Item Value Reference Range Interpretation Comments Urine Urobilinogen (test code = 69327-5) 4 0.2-1 H [facility] AmericaUrine Puyczebaq0962-52-47 09:25:00* Test Item Value Reference Range Interpretation Comments Urine Bilirubin (test code = 1978-6) NEGATIVE NEGATIVE [facility] AmericaUrine Cewgi3693-69-02 09:25:00* Test Item Value Reference Range Interpretation Comments Urine Blood (test code = 25887-3) 4+ NEGATIVE H [facility] AmericaCHEST SINGLE (PORTABLE)2018-02-28 09:21:00 [place] [address] Patient Name: JOSE JUAN REYES MR #: [id number] : 1930 Age/Sex: 87/M Req #: [id number] Adm Physician: Ordered by: ELICEO OLVERA MD Report #: [id number] Location: ER Room/Bed: Procedure: [id number] D X/CHEST SINGLE (PORTABLE) Exam Date: 02/28/18 Exam T parmjit: 0910 REPORT STATUS: Signed EXAM: XR CHEST 1 VIEW DATE: 02/28/2018 8:32 AM INDICATION: Pain COMPARISON: 01/01/2018 radiograph and 12/29/2017 CT, no report available FIND INGS: Lines and Tubes: None Heart and Mediastinum: The heart is mildly enlarged. Mild aortic vascular calcifications are present. Prominence of the mediastinum and right peritracheal soft tissues correspond with confluent vasc ular structures. Pulmonary arteries dilated. Lungs and Pleura: Patchy bas ilar opacities. Bones and Soft Tissues: No acute findings. IMPRESSION: 1. Basilar opacities could represent atelectasis or pneumonia. Component of mild edema possible. 2. Dilated pulmonary arteries suggesting pulmonary hypertension. Signed by: Dr. Amairani Lee MD on 02/28/2018 9:22 AM Dictated By: AMAIRANI LEE MD 1 Transcribed By: JUDD on 02/28/18921 COPY TO: Markos OLVERA MD Blood Srxnrfe5273-76-52 16:37:00* Test Item Value Reference Range Interpretation Comments Blood Culture (test code = 65527812) NO GROWTH AFTER 5 DAYS, FINAL REPORT [facility] Wqthily8800-16-39 16:37:00* Test Item Value Reference Range Interpretation Comments Blood Culture (test code = 06022487) NO GROWTH AFTER 5 DAYS, FINAL REPORT [facility] Bvdshco7268-44-88 16:37:00* Test Item Value Reference Range Interpretation Comments Blood Culture (test code = 77003862) NO GROWTH AFTER 5 DAYS, FINAL REPORT [facility] Vgjeexs5790-46-87 16:37:00* Test Item Value Reference Range Interpretation Comments Blood Culture (test code = 91197483) NO GROWTH AFTER 5 DAYS, FINAL REPORT [facility] AmericaBedside Gerhwpp9332-57-93 08:13:00* Test Item Value Reference Range Interpretation Comments Bedside Glucose (test code = 26591-0) 141 70-120 H Meter ID: [id number] [facility]WS 2018-01-01 21:39:00 [facility] [address] [place] [address] Patient Name: JOSE JUAN REYES MR #: [id number] : 1930 Age/Sex: 87/M Req #: [id number] Adm Physician: VIDAL COWAN MD Ordered by: TAYLOR BRENNER MD Report #: [id number] Location: [facility] Room/Bed: [place] [address] Procedure: [id number] DX /CHEST 2 VIEWS Exam Date: 01/01/18 Exam Time: 2113 REPORT STATUS: Signed EXAMINATION: CHEST 2 VIEWS INDICATION: Pneumonia COMPARISON: 12/30/2017 FINDINGS: TUBES and LINES: Endotracheal tube has been removed. LUNGS: Lungs are not well infl ated. Persistent, relatively unchanged predominantly right lower lobe airspac e disease with air bronchogram. There is mild prominence of the central pulm onary vasculature, consistent with pulmonary venous congestion. PLEURA: No pleural effusion or pneumothorax. HEART AND MEDIASTINUM: Cardiac size i s mildly enlarged. The aorta is ectatic with atherosclerotic calcifications. BONES AND SOFT TISSUES: No acute osseous lesion. Soft tissues are unrema rkable. UPPER ABDOMEN: No free air under the diaphragm. IMPRESSION : Stable confluence predominantly involving the right lower lobe suggestive o f persistent infection. Signed by: Dr. Jose Juan George M.D. on 01/01/2018 9:41 PM Dictated By: JOSE JUAN KINSEY MD 40 Transcribed By: JUDD on 01/01/18 214 1 COPY TO: TAYLOR BRENNER MD Blood Yhshyvs8034-62-14 16:37:00* Test Item Value Reference Range Interpretation Comments Blood Culture (test code = 75706701) NO GROWTH AFTER 72 HOURS [facility] Mwzuc0681-33-04 05:16:00* Test Item Value Reference Range Interpretation Comments Sodium Level (test code = 2951-2) 138 136-145 [facility] AmericaPotassium Vecck6907-57-22 05:16:00* Test Item Value Reference Range Interpretation Comments Potassium Level (test code = 2823-3) 3.6 3.5-5.1 [facility] of AmericaChloride Dhatx9436-30-43 05:16:00* Test Item Value Reference Range Interpretation Comments Chloride Level (test code = 2075-0) 108 98-107 H [facility] Hospitals of AmericaCarbon Dioxide Cuqvt6073-97-12 05:16:00* Test Item Value Reference Range Interpretation Comments Carbon Dioxide Level (test code = 2028-9) 19 22-29 L [facility] of AmericaAnion Eku5226-01-77 05:16:00* Test Item Value Reference Range Interpretation Comments Anion Gap (test code = 35810-0) 14.6 8-16 [facility] of AmericaBlood Urea Psmludkq2100-25-03 05:16:00* Test Item Value Reference Range Interpretation Comments Blood Urea Nitrogen (test code = 3094-0) 14 7-26 [facility] of AmericaCreatinine2018-09-13 05:16:00* Test Item Value Reference Range Interpretation Comments Creatinine (test code = 2160-0) 1.37 0.72-1.25 H [facility] Hospitals of AmericaBUN/Creatinine Eqmgt7470-71-82 05:16:00* Test Item Value Reference Range Interpretation Comments BUN/Creatinine Ratio (test code = 3097-3) 10 6-25 [facility] of AmericaEstimat Glomerular Filtration Rate 2018-01-01 05:16:00* Test Item Value Reference Range Interpretation Comments Estimat Glomerular Filtration Rate (test code = 23124-6) 49 >60 L Ranges were taken from the National Kidney Disease Education Program and the [facility] [employer] literature.Reference ranges:60 or greater: Caohij71-12 ( for 3 consecutive months): Chronic kidney disease 15 or less: Kidney failureSurgery Specialty Hospitals of AmericaGlucose Nyfmt3583-61-84 05:16:00* Test Item Value Reference Range Interpretation Comments Glucose Level (test code = LRK2651) 124 74-118 H [facility]als of AmericaCalcium Wgnqf7239-46-14 05:16:00* Test Item Value Reference Range Interpretation Comments Calcium Level (test code = 73566-6) 8.8 8.4-10.2 [facility] of AmericaWhite Blood Fwrnv4087-97-87 04:55:00* Test Item Value Reference Range Interpretation Comments White Blood Count (test code = 6690-2) 10.51 4.8-10.8 [facility] of AmericaRed Blood Pitpw1396-50-09 04:55:00* Test Item Value Reference Range Interpretation Comments Red Blood Count (test code = 789-8) 2.94 4.3-5.7 L [facility] of AmericaHemoglobin2018-09-13 04:55:00* Test Item Value Reference Range Interpretation Comments Hemoglobin (test code = 30057-1) 9.5 14.0-18.0 L [facility] of AmericaHematocrit2018-09-13 04:55:00* Test Item Value Reference Range Interpretation Comments Hematocrit (test code = 4544-3) 28.6 38.2-49.6 L [facility]als of AmericaMean Corpuscular Iqhecv3889-19-47 04:55:00* Test Item Value Reference Range Interpretation Comments Mean Corpuscular Volume (test code = 787-2) 97.3 81-99 [facility]als of AmericaMean Corpuscular Euaiwyopbi3773-61-70 04:55:00* Test Item Value Reference Range Interpretation Comments Mean Corpuscular Hemoglobin (test code = 785-6) 32.3 28-[address] [facility] Center[facility] Corpuscular Hemoglobin Concent 2018-01-01 04:55:00* Test Item Value Reference Range Interpretation Comments Mean Corpuscular Hemoglobin Concent (test code = 786-4) 33.2 31-35 [facility] AmericaRed Cell Distribution Qhyxy1563-23-94 04:55:00* Test Item Value Reference Range Interpretation Comments Red Cell Distribution Width (test code = 74631-1) 13.6 11.7 -14.4 [facility]als of AmericaPlatelet Tcatx4956-59-52 04:55:00* Test Item Value Reference Range Interpretation Comments Platelet Count (test code = 777-3) 345 140-360 [facility] of AmericaMRI BRAIN EP5394-67-22 13:04:00 [facility] [address] [place] [address] Patient Name: JOSE JUAN REYES MR #: [id number] : 1930 Age/Sex: 87/M Req #: [id number] Adm Physician: VIDAL COWAN MD Ordered by: TAYLOR BRENNER MD Report #: [id number] Location: ICU Room/Bed: ICU [facility] Procedure: [id number] MRI/ MRI BRAIN WO Exam Date: Exam Time: REPORT ST ATUS: Signed Examination: MRI BRAIN WITHOUT CONTRAST History: Left-sided we akness. Comparison studies: Head CT performed March 30, 2018 Technique : Sagittal T2; axial DWI, FLAIR, GRE or SWI, T1, Coronal FLAIR. Intravenous contrast: None Findings: Scalp: No abnormal signal. No masses. Bone marrow: Normal in signal intensity. Brain volume: Mild volume loss. Adan tricles: Ex vacuo dilatation. No hydrocephalus. Extra-axial spaces: No a bnormalities. Parenchyma: There are patchy and confluent areas of T2/FLAI R hyperintensity in the periventricular and subcortical white matter, nonspeci fic. No masses, hemorrhage, or acute vascular insults. Suprasellar and s ellar region: No abnormalities. Craniocervical junction: No abnormalities. The foramen magnum is patent. No Chiari malformations. Vessels: Normal flow-voi ds in the arteries and sinuses. Additional findings:Opacified right mastoid air cells. Mild T2 signal in the left mastoid air cells. Partially visualiz ed grade I anterolisthesis of C3 on C4. IMPRESSION: 1. No acute intra cranial abnormality, specifically, no acute infarct. 2. Unchanged mild chr onic microvascular ischemic change. 3. Unchanged moderate volume loss. Signed by: Dr. Nanci Brock M.D. on 12/31/2017 1:07 PM Dictated By: NANCI ORR MD 1307 Transcribed By: JUDD on 12/31/17 1307 COPY TO: TAYLOR BRENNER MD Neutrophils (%) (Auto)2017-12-31 04:57:00* Test Item Value Reference Range Interpretation Comments Neutrophils (%) (Auto) (test code = 42611-4) 71.6 38.7-80.0 [facility] AmericaLymphocytes (%) (Auto)2017-12-31 04:57:00 * Test Item Value Reference Range Interpretation Comments Lymphocytes (%) (Auto) (test code = 736-9) 12.8 18.0-39.1 L [facility] AmericaMonocytes (%) (Auto)2017-12-31 04:57:00* Test Item Value Reference Range Interpretation Comments Monocytes (%) (Auto) (test code = 5905-5) 13.8 4.4-11.3 H [facility] AmericaEosinophils (%) (Auto)2017-12-31 04:57:00 * Test Item Value Reference Range Interpretation Comments Eosinophils (%) (Auto) (test code = 713-8) 0.9 0.0-6.0 [facility] AmericaBasophils (%) (Auto)2017-12-31 04:57:00* Test Item Value Reference Range Interpretation Comments Basophils (%) (Auto) (test code = 706-2) 0.3 0.0-1.0 [facility] of AmericaIM GRANULOCYTES %2017-12-31 04:57:00* Test Item Value Reference Range Interpretation Comments IM GRANULOCYTES % (test code = IM GRANULOCYTES %) 0.6 0.0- 1.0 [facility] of AmericaNeutrophils # (Auto)2017-12-31 04:57:00* Test Item Value Reference Range Interpretation Comments Neutrophils # (Auto) (test code = 751-8) 8.2 2.1-6.9 H [facility] of AmericaLymphocytes # (Auto)2017-12-31 04:57:00* Test Item Value Reference Range Interpretation Comments Lymphocytes # (Auto) (test code = 14664-2) 1.5 1.0-3.2 [facility] AmericaMonocytes # (Auto)2017-12-31 04:57:00* Test Item Value Reference Range Interpretation Comments Monocytes # (Auto) (test code = 742-7) 1.6 0.2-0.8 H [facility] of AmericaEosinophils # (Auto)2017-12-31 04:57:00* Test Item Value Reference Range Interpretation Comments Eosinophils # (Auto) (test code = 711-2) 0.1 0.0-0.4 [facility] AmericaBasophils # (Auto)2017-12-31 04:57:00* Test Item Value Reference Range Interpretation Comments Basophils # (Auto) (test code = 704-7) 0.0 0.0-0.1 [facility] of AmericaAbsolute Immature Granulocyte (auto 2017-12-31 04:57:00* Test Item Value Reference Range Interpretation Comments Absolute Immature Granulocyte (auto (aaliyah t code = Absolute Immature Granulocyte (auto) 0.07 0-0.1 [facility] of AmericaCreatine Yfrapa0765-23-15 23:40:00* Test Item Value Reference Range Interpretation Comments Creatine Kinase (test code = 2157-6) 92 30-200 [facility] AmericaCreatine Kinase OB2142-13-21 23:40:00* Test Item Value Reference Range Interpretation Comments Creatine Kinase MB (test code = 29992-1) 1.70 0-5.0 [facility] of AmericaTroponin Z0174-89-02 23:40:00* Test Item Value Reference Range Interpretation Comments Troponin I (test code = CNM8090) 0.023 0-0.300 [facility] of AmericaArterial Blood kX1364-87-54 16:51:00* Test Item Value Reference Range Interpretation Comments Arterial Blood pH (test code = 2744-1) 7.44 7.31-7.41 H [facility]als of AmericaArterial Blood Partial Pressure CO2 2017-12-30 16:51:00* Test Item Value Reference Range Interpretation Comments Arterial Blood Partial Pressure CO2 (test code = 2018-) 29 41-51 L [facility] of AmericaArterial Blood Partial Pressure O2 2017-12-30 16:51:00* Test Item Value Reference Range Interpretation Comments Arterial Blood Partial Pressure O2 (test code = 2018-8) 86 80-105 [facility] of AmericaArterial Blood RVW49309-39-10 16:51:00* Test Item Value Reference Range Interpretation Comments Arterial Blood HCO3 (test code = 1960-4) 20 23-28 L [facility] of AmericaArterial Blood Base Kjdeei5038-53-57 16:51:00* Test Item Value Reference Range Interpretation Comments Arterial Blood Base Excess (test code = 1925-7) -4.0 -2-3 L [facility]als of AmericaArterial Blood Oxygen Saturation 2017-12-30 16:51:00* Test Item Value Reference Range Interpretation Comments Arterial Blood Oxygen Saturation (test code = 2708-6) 97.0 95-98 [facility]als of AmericaFiO22018-09-11 16:51:00* Test Item Value Reference Range Interpretation Comments FiO2 (test code = FiO2) 28 Pt on 28% Aerosol T pieceSurgery Specialty Hospitals of AmericaArterial Blood mC3177-46-94 16:51:00* Test Item Value Reference Range Interpretation Comments Arterial Blood pH (test code = 2744-1) 7.44 7.31-7.41 H [facility] AmericaArterial Blood Partial Pressure CO2 2017-12-30 16:51:00* Test Item Value Reference Range Interpretation Comments Arterial Blood Partial Pressure CO2 (test code = 2018-11) 29 41-51 L [facility] AmericaArterial Blood Partial Pressure O2 2017-12-30 16:51:00* Test Item Value Reference Range Interpretation Comments Arterial Blood Partial Pressure O2 (test code = 2018-11) 86 80-105 [facility] AmericaArterial Blood [id number] 16:51:00* Test Item Value Reference Range Interpretation Comments Arterial Blood HCO3 (test code = 1960-4) 20 23-28 L [facility] AmericaArterial Blood Base [id number] 16:51:00* Test Item Value Reference Range Interpretation Comments Arterial Blood Base Excess (test code = 1925-7) -4.0 -2-3 L [facility] AmericaArterial Blood Oxygen Saturation 2017-12-30 16:51:00* Test Item Value Reference Range Interpretation Comments Arterial Blood Oxygen Saturation (test code = 2708-6) 97.0 95-98 [facility] AmericaFiO22018-09-11 16:51:00* Test Item Value Reference Range Interpretation Comments FiO2 (test code = FiO2) 28 Pt on 28% Aerosol T [facility] Blood [id number] 16:51:00* Test Item Value Reference Range Interpretation Comments Arterial Blood pH (test code = 2744-1) 7.44 7.31-7.41 H [facility] AmericaArterial Blood Partial Pressure CO2 2017-12-30 16:51:00* Test Item Value Reference Range Interpretation Comments Arterial Blood Partial Pressure CO2 (test code = 2018-11) 29 41-51 L [facility] AmericaArterial Blood Partial Pressure O2 2017-12-30 16:51:00* Test Item Value Reference Range Interpretation Comments Arterial Blood Partial Pressure O2 (test code = 2018-11) 86 80-105 [facility] AmericaAr[facility] Blood [id number] 16:51:00* Test Item Value Reference Range Interpretation Comments Arterial Blood HCO3 (test code = 1960-4) 20 23-28 L [facility] AmericaArterial Blood Base Jwpfzp3391-20-53 16:51:00* Test Item Value Reference Range Interpretation Comments Arterial Blood Base Excess (test code = 1925-7) -4.0 -2-3 L [facility] AmericaArterial Blood Oxygen Saturation 2017-12-30 16:51:00* Test Item Value Reference Range Interpretation Comments Arterial Blood Oxygen Saturation (test code = 2708-6) 97.0 95-98 [facility] AmericaFiO22018-09-11 16:51:00* Test Item Value Reference Range Interpretation Comments FiO2 (test code = FiO2) 28 Pt on 28% [facility] [id number] 16:51:00* Test Item Value Reference Range Interpretation Comments Arterial Blood pH (test code = 2744-1) 7.44 7.31-7.41 H [facility] AmericaArterial Blood Partial Pressure CO2 2017-12-30 16:51:00* Test Item Value Reference Range Interpretation Comments Arterial Blood Partial Pressure CO2 (test code = 2018-8) 29 41-51 L [facility] AmericaArterial Blood Partial Pressure O2 2017-12-30 16:51:00* Test Item Value Reference Range Interpretation Comments Arterial Blood Partial Pressure O2 (test code = 2019-8) 86 80-105 [facility] AmericaArterial Blood [id number] 16:51:00* Test Item Value Reference Range Interpretation Comments Arterial Blood HCO3 (test code = 1960-4) 20 23-28 L [facility] AmericaArterial Blood Base [id number] 16:51:00* Test Item Value Reference Range Interpretation Comments Arterial Blood Base Excess (test code = 1925-7) -4.0 -2-3 L [facility] AmericaAr[facility] Blood Oxygen Saturation 2017-12-30 16:51:00* Test Item Value Reference Range Interpretation Comments Arterial Blood Oxygen Saturation (test code = 2708-6) 97.0 95-98 [facility] AmericaFiO22018-09-11 16:51:00* Test Item Value Reference Range Interpretation Comments FiO2 (test code = FiO2) 28 [facility] 28[facility] [id number] 16:51:00* Test Item Value Reference Range Interpretation Comments Arterial Blood pH (test code = 2744-1) 7.44 7.31-7.41 H [facility] AmericaArterial Blood Partial Pressure CO2 2017-12-30 16:51:00* Test Item Value Reference Range Interpretation Comments Arterial Blood Partial Pressure CO2 (test code = 2018-) 29 41-51 L [facility] AmericaArterial Blood Partial Pressure O2 2017-12-30 16:51:00* Test Item Value Reference Range Interpretation Comments Arterial Blood Partial Pressure O2 (test code = 2018-11) 86 80-105 [facility] AmericaArter[facility] Blood [id number] 16:51:00* Test Item Value Reference Range Interpretation Comments Arterial Blood HCO3 (test code = 1960-4) 20 23-28 L [facility] AmericaArterial Blood Base [id number] 16:51:00* Test Item Value Reference Range Interpretation Comments Arterial Blood Base Excess (test code = 1925-7) -4.0 -2-3 L [facility] AmericaAr[facility] Blood Oxygen Saturation 2017-12-30 16:51:00* Test Item Value Reference Range Interpretation Comments Arterial Blood Oxygen Saturation (test code = 2708-6) 97.0 95-98 [facility] AmericaFiO22018-09-11 16:51:00* Test Item Value Reference Range Interpretation Comments FiO2 (test code = FiO2) 28 Pt on 28% [facility]2017-12-30 06:24:00 [place] [address] Patient Name: JOSE JUAN REYES MR #: [id number] : 1930 Age/Sex: 87/M Req #: [id number] Adm Physician: VIDAL COWAN MD Ordered by: TAYLOR BRENNER MD Report #: [id number] Location: ICU Room/Bed: ICU 1961 Procedure: [id number] DX/C HEST SINGLE (PORTABLE) Exam Date: 12/30/17 Exam Time : 0545 REPORT STATUS: Signed EXAMINATION: CHEST SINGLE (PORTABLE) INDICATION: Respiratory failure COMPARISON: 12/29/2017 FINDINGS: AP view TUBES and LINES: Endotracheal tube in place with tip terminating 6.2 cm above candy. LUNGS: Lungs are well inflated. Inter luz elena improvement in bibasilar predominantly right consolidation. There is mild prominence of the central pulmonary vasculature, consistent with pulmonary adan ous congestion. PLEURA: No significant pleural effusion or pneumothorax. HEART AND MEDIASTINUM: Cardiac size is moderately enlarged. The aorta is ectatic with atherosclerotic calcifications. BONES AND SOFT TISSUES: No ac [place] osseous lesion. Soft tissues are unremarkable. UPPER ABDOMEN: No yolanda e air under the diaphragm. IMPRESSION: 1. Improving lower lung fiel d consolidations, representing atelectasis and/or pneumonia. 2. Stable card iomediastinal silhouette on this AP view. Signed by: Dr. Jose Juan George M.D. on 12/30/2017 6:26 AM Dictated By: JOSE JUAN KINSEY MD 5 Transcribed By: JUDD on 12/30/17625 COPY TO: TAYLOR BRENNER MD B-Type Natriuretic [id number] 05:41:00* Test Item Value Reference Range Interpretation Comments B-Type Natriuretic Peptide (test code = 06709-0) 177.5 0-100 H [facility] SINGLE (PORTABLE)2017-12-29 18:16:00 [address] [place], [place] [address] Patient Name: JOSE JUAN REYES MR #: [id number] : 1930 Age/Sex: 87/M Req #: [id number] Adm Physician: VIDAL COWAN MD Ordered by: VIDAL COWAN MD Report #: [id number] Location: ICU Room/Bed: ICU [facility] Procedure: [id number] DX/YULIYA ST SINGLE (PORTABLE) Exam Date: 12/29/17 Exam Time: 1415 REPORT STATUS: Signed EXAMINATION: CHEST SINGLE (PORTABLE) INDICATION: COMPARISON: None FINDINGS: AP view TUBES and LINES: Endotracheal tube in place with tip terminating 4.9 cm above candy. LUNGS: Lungs are well inflated. Bilateral lower lung f ield consolidation. Mild vascular congestion. PLEURA: No significant ple ural effusion or pneumothorax. HEART AND MEDIASTINUM: The cardiomediastina l silhouette is enlarged on this AP view. BONES AND SOFT TISSUES: No acute osseous lesion. Soft tissues are unremarkable. UPPER ABDOMEN: No free air under the diaphragm. IMPRESSION: Bilateral lower lung field consolidations, representing atelectasis and/or pneumonia. Enlarged cardiom ediastinal silhouette on this AP view. Signed by: Dr. Ld Husain MD on 12/29/2017 6:19 PM Dictated By: LD HUSAIN MD 18 Transcribed By: JUDD on 12/29/171818 COPY TO: VIDAL COWAN MD CT BRAIN [id number] 18:01:00 [facility] [address] [place], [place] [address] Patient Name: JOSE JUAN REYES MR #: [id number] : 1930 Age/Sex: 87/M Req #: [id number] Adm Physician: VIDAL COWAN MD Ordered by: TAYLOR BRENNER MD Report #: [id number] Location: ICU Room/Bed: ICU [facility] Procedure: [id number] CT/C T BRAIN WO Exam Date: 12/29/17 Exam Time: 1720 REPORT STATUS: Signed History: Unresponsive, CODE BLUE Comparison studi es: None Technique: Axial images were obtained from the skull base to the vertex. Coronal and sagittal reconstructions obtained from the axial da ta. Dose modulation, iterative reconstruction, and/or weight based adjustment of the mA/kV was utilized to reduce the radiation dose to as low as reasonably achievable. Findings: Scalp/skull: No abnormalities. No fractu res, blastic or lytic lesions. Extra-axial spaces: No masses. No fluid collections. Brain sulci: Mildly prominent. Ventricles: Mild compensatory dilatation. No hydrocephalus. Parenchyma: Ill defined confluent hypode nsities in the supratentorial white matter are small vessel ischemic changes. No masses, hemorrhage, acute or chronic cortical vascular insults. Sella r/suprasellar region: No abnormalities Craniocervical junction: Patent foramen magnum. No Chiari one malformation. Incidental findings: Focal nonspeci fic inflammatory changes in the right mastoid cavity and in multiple mastoid a ir cells. Atherosclerotic calcifications in the carotid siphons. IMPRESSI ON: No acute abnormalities. Chronic findings: 1. Mild generalized v olume loss. 2. Moderate supratentorial white matter small vessel ischemic abhilash nges. Signed by: Dr. Eben Angel M.D. on 12/29/2017 6:02 PM Dictated By: EBEN ANGEL MD, MD 01 Transcribed By: JUDD on 12/29/171801 COPY TO: TAYLOR BRENNER MD CT CHEST [id number] 17:55:00 [facility] [address] [place] [address] Patient Name: JOSE JUAN REYES MR #: [id number] : 1930 Age/Sex: 87/M Req #: [id number] Adm Physician: VIDAL COWAN MD Ordered by: TAYLOR BRENNER MD Report #: [id number] Location: ICU Room/Bed: ICU [facility] Procedure: [id number] CT/C T CHEST WO Exam Date: 12/29/17 Exam Time: 1720 REPORT STATUS: Signed EXAM: CT Chest WITHOUT contrast INDICATION: COMPARISON: Chest x-ray of the same day TECHNIQUE: Chest was sca nned utilizing a multidetector helical scanner from the lung apex through the level of the adrenal glands without administration of IV contrast. Absence of intravenous contrast decreases sensitivity for detection of lymphadenopathy an d vascular pathology. Coronal and sagittal reformations were obtained. Routine protocol was performed. IV CONTRAST: None COMPLICATIONS: None RADIATION DOSE: Total DLP: 1606.4 mGy*cm Estimated effective d ose: (DLP x 0.014 x size factor) mSv CTDIvol has been reviewed. It is bel ow the limits set by the Radiation Protocol Committee (RPC). F INDINGS: Limited ascites and streak artifacts. LINES/ TUBES: Endotracheal tu be in place with tip terminating in mid trachea. LUNGS AND AIRWAYS: Bilate ral lower lobe consolidations with air bronchograms. There is also mild bibasi lar scarring. 4 mm left apical nodule (series 3, image 22). 4 mm lingular nodu le (). Airways are normal. PLEURA: No significant pleural effusion or e vidence of pneumothorax. Possible trace bilateral pleural effusions. Evaluatio n is limited due to streak artifacts. HEART AND MEDIASTINUM: The thyroid gland is normal. No mediastinal, hilar or axillary lymphadenopathy. Nonspecif ic scattered subcentimeter mediastinal lymph nodes. The heart is normal in siz e.. There is no pericardial effusion. Main pulmonary artery measures 3.8 cm, suggestive of pulmonary hypertension. Moderate atherosclerotic calcification o f aortic arch and mild coronary artery calcification. Calcification aortic jyoti ulus. UPPER ABDOMEN: Right hepatic lobe calcified granuloma. Partially imag ed 3 cm left renal superior pole hypodensity, likely a cyst. Partially imaged 1.2 cm left adrenal base nodule with internal density of 3 Hounsfield units, representing an adenoma. BONES: Degenerative changes of thoracic spine and shoulder joints. SOFT TISSUES: Unremarkable. IMPRESSION: 1. Bilate ral lower lobe consolidations with air bronchograms, representing atelectasis and/or aspiration/pneumonia. 2. Enlarged main pulmonary artery, suggestive of pulmonary hypertension. 3. Nonspecific left lung nodules. Without risk facto rs, no follow-up is necessary. With risk factors, follow-up with low-dose ches t CT in one year is recommended. Signed by: Dr. Ld Husain MD on 12/29 6:12 PM Dictated By: LD HUSAIN MD 11 Transcribed By: JUDD on 12/29/171811 COPY TO: TAYLOR BRENNER MD Total [id number] 15:19:00* Test Item Value Reference Range Interpretation Comments Total Bilirubin (test code = 1975-2) 1.5 0.2-1.2 H [facility] AmericaAspartate Amino Transf (AST/SGOT) 2017-12-29 15:19:00* Test Item Value Reference Range Interpretation Comments Aspartate Amino Transf (AST/SGOT) (test code = Aspartate Amino Transf (AST/SGOT)) 36 5-34 H [facility] AmericaAlanine Aminotransferase (ALT/SGPT) 2017-12-29 15:19:00* Test Item Value Reference Range Interpretation Comments Alanine Aminotransferase (ALT/SGPT) (test code = 1742-6) 18 0-55 [facility] AmericaTotal [id number] 15:19:00* Test Item Value Reference Range Interpretation Comments Total Protein (test code = 2885-2) 6.7 6.5-8.1 [facility] AmericaAlbumin2018-09-10 15:19:00* Test Item Value Reference Range Interpretation Comments Albumin (test code = 1751-7) 3.0 3.5-5.0 L [facility] AmericaGlobulin2018-09-10 15:19:00* Test Item Value Reference Range Interpretation Comments Globulin (test code = 55624-0) 3.7 2.3-3.5 H [facility] AmericaAlbumin/Globulin [id number] 15:19:00 * Test Item Value Reference Range Interpretation Comments Albumin/Globulin Ratio (test code = 1759-0) 0.8 0.8-2.0 [facility] AmericaAlkaline Nnejclwlahb2623-10-30 15:19:00* Test Item Value Reference Range Interpretation Comments Alkaline Phosphatase (test code = 6768-6) 80 40-150 [facility] AmericaProthrombin Brub1231-01-04 15:12:00* Test Item Value Reference Range Interpretation Comments Prothrombin Time (test code = 5902-2) 15.5 11.9-14.5 H [facility] AmericaProthromb Time International Ratio 2017-12-29 15:12:00* Test Item Value Reference Range Interpretation Comments Prothromb Time International Ratio (test code = 6301-6) 1.33 Oral Anticoagulant Therapy INR Values:1. Low Intensity Therapy 1.5 - 2.02 . Moderate Intensity Therapy 2.0 - 3.03. High Intensity Therapy(1) 2.5 - 3. 54. High Intensity Therapy(2) 3.0 - 4.05. Panic Value INR > 5.0 [facility] AmericaUS RENAL RETROPERITONEAL [id number] 17:47:00 [place] [address] Patient Name: JOSE JUAN REYES MR #: [id number] : 1930 Age/Sex: 87/M Req #: [id number] [facility] Physician: VIDAL COWAN MD Ordered by: VIDAL COWAN MD Report #: [id number] Location: MED/SURG2 Room/Bed: [facility] Procedure: US/U S RENAL RETROPERITONEAL COMP Exam Date: 12/24/17 Exa m Time: 1635 REPORT STATUS: Signed EXAMINATION: Renal ultrasound. CLINICAL HISTORY :Hematuria, bladder irrigation COMPARISON: <None available.> TECHNIQUE: Grayscale and color Doppler evaluation of the kidneys and bladder was performed in transverse and longitudinal planes. DISCUSSION: RIGHT KIDNEY: The right kidney measures 9.9 cm in length and shows increased echogenicity. No hydronephrosis, shadowing calculi or solid mass lesions. 2 cm and 1.8 cm renal cyst. LEFT KIDNEY: The left kidney measures 10.2 cm in length and shows increased echogenicity. No hydronephrosis, shadowing calculi or solid mass lesions. 2.4 cm renal cyst. BLADDER: Unremarkable. IMPRESSION: Mildly increased renal cortical echogenicity can be seen in medical renal disease. No obstruction. Simple renal cysts. Signed by: Dr. Jenni Nichols M.D. on 12/24/2017 5:50 PM Dictated By: JENNI NICHOLS MD 49 Transcribed By: JUDD on 12/24/171749 COPY TO: VIDAL COWAN MD Hemoglobin A1c [id number] 19:43:00* Test Item Value Reference Range Interpretation Comments Hemoglobin A1c Percent (test code = Hemoglobin A1c Percent) 6.7 4.0-7.0 [facility] AmericaTriglycerides [id number] 19:16:00* Test Item Value Reference Range Interpretation Comments Triglycerides Level (test code = 2571-8) 124 0-149 [facility] AmericaCholesterol Gmjrv9116-35-23 19:16:00* Test Item Value Reference Range Interpretation Comments Cholesterol Level (test code = 2093-3) 165 0-199 Less than 200 mg/dL Low Vhla010 - 239 mg/dL Borderline Pivn449 m g/dl and greater High Risk [facility] AmericaLDL Noqbyawlmli0777-94-62 19:16:00* Test Item Value Reference Range Interpretation Comments LDL Cholesterol (test code = 2089-1) 107 60-130 [facility] AmericaHDL Qbdcxtwuezz4495-38-69 19:16:00* Test Item Value Reference Range Interpretation Comments HDL Cholesterol (test code = 2085-9) 33 40-60 L [facility] AmericaCholesterol/HDL Jgznr3988-55-63 19:16:00 * Test Item Value Reference Range Interpretation Comments Cholesterol/HDL Ratio (test code = 9830-1) 5.0 3.9-4.7 H [facility] AmericaUrine Mjxns3886-27-26 05:30:00* Test Item Value Reference Range Interpretation Comments Urine Color (test code = 5778-6) RED YELLOW H [facility] AmericaUrine Cxddflb6683-67-34 05:30:00* Test Item Value Reference Range Interpretation Comments Urine Clarity (test code = 08055-2) TURBID CLEAR H [facility] AmericaUrine Specific Ullsuqv5259-94-82 05:30:00 * Test Item Value Reference Range Interpretation Comments Urine Specific [place] (test code = 5811-5) 1.000 1.010-1.02 5 L [facility] AmericaUrine [id number] 05:30:00* Test Item Value Reference Range Interpretation Comments Urine pH (test code = 67872-7) 7 5-7 [facility] AmericaUrine Leukocyte Rfawzgnf1899-78-96 05:30:00* Test Item Value Reference Range Interpretation Comments Urine Leukocyte Esterase (test code = 5799-2) 1+ NEGATIVE H [facility] AmericaUrine Ckcrmps5149-47-11 05:30:00* Test Item Value Reference Range Interpretation Comments Urine Nitrite (test code = 22086-3) POSITIVE NEGATIVE H [facility] AmericaUrine Ynbuxge5431-22-79 05:30:00* Test Item Value Reference Range Interpretation Comments Urine Protein (test code = 5804-0) 3+ NEGATIVE H [facility] Glucose (UA)2017-12-21 05:30:00* Test Item Value Reference Range Interpretation Comments Urine Glucose (UA) (test code = 2349-9) 1+ NEGATIVE H [facility] Baqnnxg8078-00-06 05:30:00* Test Item Value Reference Range Interpretation Comments Urine Ketones (test code = 97836-5) TRACE NEGATIVE H [facility] Fkuhuetjhfej5916-84-68 05:30:00* Test Item Value Reference Range Interpretation Comments Urine Urobilinogen (test code = 63182-6) 1 0.2-1 [facility] Gwmqtuccn0288-56-01 05:30:00* Test Item Value Reference Range Interpretation Comments Urine Bilirubin (test code = 1978-6) NEGATIVE NEGATIVE [facility] Luwdg4045-13-07 05:30:00* Test Item Value Reference Range Interpretation Comments Urine Blood (test code = 70348-2) 4+ NEGATIVE H [facility] IHT4935-10-92 05:30:00* Test Item Value Reference Range Interpretation Comments Urine WBC (test code = 5821-4) 11-20 0-5 H [facility] AmericaUrine BVU4298-92-67 05:30:00* Test Item Value Reference Range Interpretation Comments Urine RBC (test code = 19550-5) 50- 0-5 H [facility] Gpfyhcqe1637-05-59 05:30:00* Test Item Value Reference Range Interpretation Comments Urine Bacteria (test code = 77486-5) FEW NONE [facility] Epithelial Ecqoi8024-92-15 05:30:00 * Test Item Value Reference Range Interpretation Comments Urine Epithelial Cells (test code = 83969-4) NONE NONE [facility] AmericaActivated Partial Thromboplast Time 2017-12-21 04:33:00* Test Item Value Reference Range Interpretation Comments Activated Partial Thromboplast Time (test code = 44325-4) 32.1 23.8-35.5 [facility] AmericaCT PELVIS W [facility] [address] [place] [address] Patient Name: JOSE JUAN REYES MR #: [id number] : 1930 Age/Sex: 86/M Req #: [id number] Adm Physician: Ordered by: NATALYA NIELSEN MD Report #: [id number] Location: CT Room/Bed: Procedure: [id number] CT/CT PELVIS W Exam Date: 08/05 Exam Time: 1345 REPORT STATUS: Signed P ROCEDURE: CT PELVIS WITH CONTRAST COMPARISON: CT abdomen and pelvis . INDICATIONS: GROSS HEMATURIA TECHNIQUE: After obtainin g the patient's consent, CT images were obtained with non-ionic intravenous c ontrast material. 100 cc of Isovue 370 was infused in a retrograde fashion th rough the existing Benitez catheter into the urinary bladder. FINDINGS: Benitez catheter is present in the urinary bladder. Minimal amount of air is noted within the lumen of the urinary bladder. The bladder contour is norm al. A small bladder diverticulum is present in the right lateral aspect of th e urinary bladder, series 2 image 33. No extravasation of contrast. The semin al vesicles are prominent. Minimal contrast is noted within the left seminal vesicle. The visualized portions of the bowel are unremarkable. Moderate amou nt of retained feces limits intraluminal evaluation of the colon. Scattered d iverticuli are present, without adjacent soft tissue inflammatory changes. No retroperitoneal or pelvic mass or lymphadenopathy. CONCLUSION: No ev idence of extravasation. Small bladder diverticulum. Dictated by: Camryn Joshi M.D. on 03/24/2017 at 15:52 Electronically approved by: Camryn mcginnis M.D. on 03/24/2017 at 15:52 Dictated By: CAMRYN JOSHI MD 51 Transcribed By: SAJI on 03/24/171551 COPY TO: NATALYA NIELSEN MD
--- NOTE | 2020-01-24 11:20 | Diagnostic Imaging Report ---
Exam: Head CT without contrast History: Trauma, fall Comparison studies: Brain MRI 12/31/2017 Technique: Axial images were obtained from the skull base to the vertex. Coronal and sagittal images reconstructed from the axial data. Dose modulation, iterative reconstruction, and/or weight based adjustment of the mA/kV was utilized to reduce the radiation dose to as low as reasonably achievable. Radiation dose: Total DLP: 969 mGy*cm. Estimated effective dose: DLP x 0.015 Intravenous contrast: None Findings: Soft tissues: Right periorbital soft tissue hematoma. No retained hyperdense foreign body Bones: Mildly comminuted and displaced right orbital floor fracture involves the canal for the right infraorbital nerve. Minimal right inferior extraconal as well as associated small hemorrhage in the partially imaged right maxillary sinus. Right globe and lens are otherwise intact. No retrobulbar hematoma. Brain sulci: Moderately prominent. Ventricles: Moderate compensatory dilatation. No hydrocephalus. Extra-axial spaces: No masses, no fluid collection. Parenchyma: No mass, acute hemorrhage or acute cortical vascular insults. A few scattered ill-defined and confluent hypodensities in the supratentorial white matter are nonspecific but most compatible with chronic small vessel ischemic changes. Sellar/suprasellar region: No abnormalities. Craniocervical junction: Patent foramen magnum. No Chiari one malformation. Incidental findings: * Atherosclerotic calcifications in the carotid siphons. * Chronic right middle ear and mastoid opacification. * Punctate senile dystrophic calcification along the anterior left globe. * Prior left intraocular lens replacement. * Small chronically eroded/remodeled right mandible condyle. Similar findings can be seen as sequela of inflammatory arthritis such as rheumatoid arthritis in the appropriate clinic setting. IMPRESSION: 1. Mildly comminuted and displaced right orbital floor fracture with overlying right periorbital soft tissue hematoma. No extraocular muscle herniation. 2. No acute intracranial abnormalities. 3. Unchanged moderate generalized parenchyma volume loss. 4. Unchanged moderate chronic microvascular ischemic changes. Signed by: Dr. Clif Arcos M.D. on 01/24/2020 11:17 AM
--- NOTE | 2020-01-24 11:26 | Emergency Department Note ---
History of Present Illnes History of Present Illness Chief Complaint: General Medicine Complaints History of Present Illness This is an 89 year old male, with a history of NIDDM, hypertension, hyperlipidemia, GERD, and gout, who was getting out of bed while wearing socks only on his feet, when the slippery sock caused him to slip and fall out of the bed, hitting the right periorbital area on the nightstand. His head then, also, hit the tile floor. Patient's witnessed the fall, and he had no loss of consciousness. He complains of a mild headache, but denies any nausea, vomiting, visual changes, or focal neurologic symptoms. Patient and deny that he has had any recent head injuries. Patient does not take any blood thinners including no aspirin. periorbital area on the nightstand, and he then hit his head on the tile floor. Patient's witnessed the fall, and he had no loss of consciousness. The fall occurred approximately 40 minutes prior to arrival. Patient has a small laceration on the right lateral upper eyelid. He has a mild headache, but denies any nausea, vomiting, visual changes, or focal neurologic changes. The patient and deny that he has had any recent head injury. Patient does not take any blood thinners, including no aspirin. Patient denies any recent sick symptoms including no fever, dysuria, chest pain, shortness of breath. Patient's last tetanus, was less than 5 years ago. Historian: Patient, Family Member () Arrival Mode: Car Mechanical Car Checker Required: No Onset (how long ago): minute(s) (40) Location: right lateral periorbiral area. Quality: laceration Radiation: Reports non-radiation Severity: mild Onset quality: sudden Duration (how long): hour(s) (40 min) Timing of current episode: constant Progression: unchanged Chronicity: new Context: Reports trauma/injury (see HPI); Denies recent illness, Denies recent surgery Relieving factors: none Exacerbating factors: none Associated symptoms: Reports denies other symptoms Treatments prior to arrival: none Risk factors: elderly male with balance issues Past Medical/Family History Physician Review I have reviewed the patient's past medical and family history. Any updates have been documented here. Past Medical History Recent Fever: No Clinical Suspicion of Infectio: No New/Unexplained Change in Ment: No Past Medical History: Hypertension, Diabetes (NIDDM), Cancer, Depression, GERD, Hyperlipedemia Other Medical History: Prostate Cancer Gout Past Surgical History: Hernia Repair Other Surgery: Prostate surgery Inguinal hernia surgery Parathyroidectomy Left Cataract Social History Smoking Cessation: Never Smoker Counseling Performed: No Alcohol Use: None Any Illegal Drug Use: No TB Exposure/Symptoms: No Physically hurt or threatened: No Family History Family history of heart diseas: No Other Last Tetanus: UTD Any Pre-Existing Lines (PICC,: No Is patient up to date on immun: Yes Review of Systems Review of Systems Constitutional: Denies chills, Denies fever EENTM: Denies blurred vision, Denies double vision Cardiovascular: Denies chest pain, Denies edema Respiratory: Denies cough, Denies dyspnea Gastrointestinal: Denies nausea, Denies vomiting Genitourinary: Denies dysuria, Denies frequency Musculoskeletal: Reports no symptoms Integumentary: Reports other (laceration of right lateral, periorbital area;) Neurological: Denies headache, Denies numbness, Denies paresthesia, Denies pre-existing deficit, Denies tingling, Denies tremors, Denies weakness Psychological: Reports no symptoms Hematological/Lymphatic: Reports no symptoms Review of other systems: All other systems negative Physical Exam Related Data Allergies: Coded Allergies: morphine (Verified Allergy, Severe, cardiac arrest, 01/24/20) cephalexin (Verified Allergy, Mild, hives/rash, 01/24/20) Vital signs reviewed: Yes Physical Exam CONSTITUTIONAL Constitutional: Present well-developed, Present well-nourished; Absent distressed, Absent ill appearing HENT HENT: Present normocephalic, Present oropharynx clear/moist, Present nose normal; Absent atraumatic (swelling, ecchymosis and hematoma of the right infraorbital and zygomatic region), Absent rhinorrhea HENT L/R: Present left TM normal (no hemotympanum on Right or Left), Present right TM normal, Present left ext ear normal, Present right ext ear normal EYES Eyes: Reports PERRL, Reports conjunctivae normal NECK Neck: Present ROM normal; Absent cervical adenopathy PULMONARY Pulmonary: Present effort normal, Present breath sounds normal CARDIOVASCULAR Cardiovascular: Present regular rhythm, Present heart sounds normal, Present capillary refill normal, Present normal rate, Present murmur (II/ holosystolic murmur LUSB) GASTROINTESTINAL Abdominal: Present soft, Present nontender, Present bowel sounds normal GENITOURINARY SKIN Skin: Present warm, Present dry, Present other (1.5 cm superficial lac of the right lateral, upper eyelid) MUSCULOSKELETAL Musculoskeletal: Present ROM normal, Present tenderness (right patella - ttp, no bruising, abrasions or significant edema; mild crepitus on flexion and extension) NEUROLOGICAL Neurological: Present alert, Present oriented x 3 PSYCHOLOGICAL Psychological: Present mood/affect normal, Present judgement normal Results Imaging Imaging results reviewed: Yes Impressions [place] [address] Patient Name: YG REYES MR #: [id number] : 1930 Age/Sex: 89/M Req #: [id number] Adm Physician: Ordered by: PAXTON REID MD Report #: [id number] Location: [facility] Room/Bed: Procedure: [id number] HOPD/CT BRAIN WO-HOPD Exam Date: 01/24/20 Exam Time: 1054 REPORT STATUS: Signed Exam: Head CT without contrast History: Trauma, fall Comparison studies: Brain MRI 12/31/2017 Technique: Axial images were obtained from the skull base to the vertex. Coronal and sagittal images reconstructed from the axial data. Dose modulation, iterative reconstruction, and/or weight based adjustment of the mA/kV was utilized to reduce the radiation dose to as low as reasonably achievable. Radiation dose: Total DLP: 969 mGy*cm. Estimated effective dose: DLP x 0.015 Intravenous contrast: None Findings: Soft tissues: Right periorbital soft tissue hematoma. No retained hyperdense foreign body Bones: Mildly comminuted and displaced right orbital floor fracture involves the canal for the right infraorbital nerve. Minimal right inferior extraconal as well as associated small hemorrhage in the partially imaged right maxillary sinus. Right globe and lens are otherwise intact. No retrobulbar hematoma. Brain sulci: Moderately prominent. Ventricles: Moderate compensatory dilatation. No hydrocephalus. Extra-axial spaces: No masses, no fluid collection. Parenchyma: No mass, acute hemorrhage or acute cortical vascular insults. A few scattered ill-defined and confluent hypodensities in the supratentorial white matter are nonspecific but most compatible with chronic small vessel ischemic changes. Sellar/suprasellar region: No abnormalities. Craniocervical junction: Patent foramen magnum. No Chiari one malformation. Incidental findings: * Atherosclerotic calcifications in the carotid siphons. * Chronic right middle ear and mastoid opacification. * Punctate senile dystrophic calcification along the anterior left globe. * Prior left intraocular lens replacement. * Small chronically eroded/remodeled right mandible condyle. Similar findings can be seen as sequela of inflammatory arthritis such as rheumatoid arthritis in the appropriate clinic setting. IMPRESSION: 1. Mildly comminuted and displaced right orbital floor fracture with overlying right periorbital soft tissue hematoma. No extraocular muscle herniation. 2. No acute intracranial abnormalities. 3. Unchanged moderate generalized parenchyma volume loss. 4. Unchanged moderate chronic microvascular ischemic changes. Signed by: Dr. Cyndi Arcos M.D. on 01/24/2020 11:17 AM Dictated By: CYNDI ARCOS MD 16 Transcribed By: JUDD on 01/24/201116 COPY TO: PAXTON REID MD~ [place] [address] Patient Name: YG REYES MR #: [id number] : 1930 Age/Sex: 89/M Req #: [id number] Adm Physician: Ordered by: PAXTON REID MD Report #: [id number] Location: [facility] Room/Bed: Procedure: [id number] HOPD/CT MAX/[facility] Exam Date: 01/24/20 Exam Time: 1203 REPORT STATUS: Signed History: Trauma, fall Comparison studies: Same-day head CT 01/24/2020. Technique: Axial images were obtained through the maxillofacial region. Coronal and sagittal images reconstructed from the axial data. Dose modulation, iterative reconstruction, and/or weight based adjustment of the mA/kV was utilized to reduce the radiation dose to as low as reasonably achievable. Radiation dose: Total DLP: 310 mGy*cm. Estimated effective dose: DLP x 0.015 Intravenous contrast: None Findings: Soft tissues: Right periorbital soft tissue hematoma extends into the right premaxillary soft tissues. Bones: Acute mildly comminuted and displaced right orbital floor fracture involves the canal for the right infraorbital nerve. No other acute fractures. No destructive lytic or blastic lesions. Orbits: Right preseptal soft tissue hematoma, as above. Trace right inferior extraconal hematoma adjacent to the right orbital for fracture. Globes and lenses appear intact. No extraocular muscle herniation. Prior left intraocular lens replacement. Incidental senile calcification present along the anterior right medial globe adjacent to the right lens detachment Paranasal sinuses: Small hemorrhage in the right maxillary sinus secondary to right orbital floor fracture. Remaining sinuses are clear. Incidental findings: * Multiple absent teeth and dental fillings with periapical lucency at a remaining left medial mandibular incisor. * Nonspecific chronic right middle ear mastoid opacification. * Advanced to degenerative changes in the partially imaged cervical spine. * Degenerative changes at the right temporomandibular joint. The right mandible condyle is small in size and has been chronically remodeled/eroded. Similar findings can be seen as sequela of inflammatory arthritis such as rheumatoid arthritis in the appropriate clinical setting. IMPRESSION: 1. Acute mildly comminuted and displaced right orbital floor fracture with overlying right periorbital and premaxillary soft tissue hematoma. 2. No associated extraocular muscle herniation or other acute fractures. Signed by: Dr. Cyndi Arcos M.D. on 01/24/2020 2:12 PM Dictated By: CYNDI ARCOS MD 11 Transcribed By: JUDD on 01/24/201411 COPY TO: PAXTON REID MD~ Procedures Laceration Laceration: Laceration 1 Site: face (right, lateral upper eyelid) Side: right Size (cm): 1.5 Description: linear Depth: simple, single layer Pre-repair: wound exposed (gently cleaned with Hibiclens soap) Size (cm): other (Tissue glue/Dermabond) Additional comments Pt tolerated procedure well. Assessment & Plan Medical Decision Making [facility] 11:45 am - Pt with "mildly comminuted and displaced right orbital floor fracture involving the canal for the right infraorbital nerve. Pt does not appear clinically to have entrapment of EOM or nerve, and he denies any double vision or other visual changes, with EOM are tested. We do not have OMFS at [facility]. [facility] is closest trauma center. Will contact for potential transfer. Updated patient and and they are agreeable with the plan. - Pt is a diabetic and has not yet eaten anything today. Accucheck at bedside is now 147 mg/dl. Will keep NPO, and monitor blood sugars closely. Pt is having no symptoms now. Visual Acuity: OD - 20/40 OS - 20/30 OU - 20/25 12:02 - case discussed with Trauma Surgeon integration software engineer at [facility], Dr. Morley, and he recommended that I speak with plastics integration software engineer, Dr. Craig, to see if pt needs to be transferred or if he can f/u as an outpatient. 12:05 - Dr. Craig is apparently in with a patient, and the transfer center will call, when she is available for phone consultation. 12:48 - Case discussed with Dr. Craig, who stated that she will see the patient in clinic on 01/27/2020, for further evaluation. She did not recommend that patient be transferred to [facility] for furhter evaluation emergently. She recommended that he be placed on antibiotics and to f/u with Ophthalmology. Dr. Chery, Optho, conferenced into the call, and did not see an indication for patient to be placed on steroids, which is good since patient is a diabetic. Pt is having no visual changes. He has had a Left cataract removal. 13:00 - follow-up appointments made for patient's Human Resources Operations Director and with Dr. Craig. 14:15 - still awaiting reading on CT max face. Radiologist has been contacted, and still no reading. Commercial Housekeeper, Dominique, is checking into why it has not been read. Patient and spouse updated. - Follow-up with Dr. Langston, Ophthalmology, tomorrow, 01/25/2020 at 9:30 am, at the [place] Office location. [phone]. - Follow-up with Dr. Marlee rCaig M.D., Plastic Surgeon, on , 01/27/2020 at 1:00 pm. PLEASE BRING THE DISC/CD WITH YOU TO THE APPOINTMENT - Office Location: [address] [place] [address], [id number] - Office , Danae is the office person that scheduled the appointment. Take ALL antibiotics Keep the wound on the Right EYE, clean and dry x 24 hours. You may shower tomorrow. The glue should come off in 2-5 days. Return to the ED for severe headache, vomiting 2 or more times, sleeping more than usual, or any neurologic changes. Assessment & Plan Final Impression: (1) Orbital floor (blow-out) closed fracture (2) Simple laceration of periorbital region (3) Facial hematoma (4) Contusion of right knee, initial encounter (5) Fall (6) Hypertension (7) Diabetes Home Meds Active Scripts Clindamycin Hcl (CLINDAMYCIN HCL) 150 Mg Capsule, 300 MG PO TID for infection for 10 Days, #30 TAB-CAP 0 Refills 2 TABS PO TID Prov:PAXTON REID MD 01/24/20 Famotidine (FAMOTIDINE) 20 Mg Tab, 20 MG PO BIDAC for 30 Days, TAB Prov:JOSÉ MIGUEL COWAN MD 12/23/17 Reported Medications Nifedipine (NIFEDIPINE) 20 Mg Capsule, 60 MG PO DAILY 01/03/20 Dexlansoprazole (DEXILANT) 60 Mg Cap., 60 MG PO DAILY THERAPEUTIC INTERCHANGE WITH PROTONIX PER [facility] 01/03/20 Sertraline Hcl (SERTRALINE HCL) 50 Mg Tablet, 50 MG PO HS, #30 TAB 09/22/19 Rosuvastatin Calcium (CRESTOR) 10 Mg Tab, 10 MG PO HS THERAPEUTICALLY SUBSTITUTED WITH SIMVASTATIN 40MG 02/28/18 Tolterodine Tartrate (DETROL LA) 4 Mg Cap.er.24h, 4 MG PO DAILY, #30 CAP 12/21/17 Dutasteride (AVODART) 0.5 Mg Capsule, 0.5 MG PO DAILY, #30 CAP 12/21/17 Furosemide (FUROSEMIDE) 20 Mg Tablet, 20 MG PO BID 12/21/17 Linagliptin (TRADJENTA) 5 Mg Tablet, 5 MG PO DAILY 12/21/17 Allopurinol (ALLOPURINOL) 300 Mg Tablet, 300 MG PO DAILY, #30 TAB 12/21/17 PAXTON REID MD Jan 24, 2020 11:26
--- NOTE | 2020-01-24 11:35 | NUR ---
Called housekeeping coordinator Scotty for approval to transfer pt to trauma hospital
[2020-01-24] MEDS ORDERED: CLINDAMYCIN HC150 MG PO (13:48)
--- NOTE | 2020-01-24 14:15 | Diagnostic Imaging Report ---
History: Trauma, fall Comparison studies: Same-day head CT 01/24/2020. Technique: Axial images were obtained through the maxillofacial region. Coronal and sagittal images reconstructed from the axial data. Dose modulation, iterative reconstruction, and/or weight based adjustment of the mA/kV was utilized to reduce the radiation dose to as low as reasonably achievable. Radiation dose: Total DLP: 310 mGy*cm. Estimated effective dose: DLP x 0.015 Intravenous contrast: None Findings: Soft tissues: Right periorbital soft tissue hematoma extends into the right premaxillary soft tissues. Bones: Acute mildly comminuted and displaced right orbital floor fracture involves the canal for the right infraorbital nerve. No other acute fractures. No destructive lytic or blastic lesions. Orbits: Right preseptal soft tissue hematoma, as above. Trace right inferior extraconal hematoma adjacent to the right orbital for fracture. Globes and lenses appear intact. No extraocular muscle herniation. Prior left intraocular lens replacement. Incidental senile calcification present along the anterior right medial globe adjacent to the right lens detachment Paranasal sinuses: Small hemorrhage in the right maxillary sinus secondary to right orbital floor fracture. Remaining sinuses are clear. Incidental findings: * Multiple absent teeth and dental fillings with periapical lucency at a remaining left medial mandibular incisor. * Nonspecific chronic right middle ear mastoid opacification. * Advanced to degenerative changes in the partially imaged cervical spine. * Degenerative changes at the right temporomandibular joint. The right mandible condyle is small in size and has been chronically remodeled/eroded. Similar findings can be seen as sequela of inflammatory arthritis such as rheumatoid arthritis in the appropriate clinical setting. IMPRESSION: 1. Acute mildly comminuted and displaced right orbital floor fracture with overlying right periorbital and premaxillary soft tissue hematoma. 2. No associated extraocular muscle herniation or other acute fractures. Signed by: Dr. Clif Arcos M.D. on 01/24/2020 2:12 PM
[2020-01-24 14:43] VITALS: BP 155/72
== END 2020-01-24 14:33 | disposition home or self-care (01) ==
LOC: FSED 10:47
DX: S02.31XA Fracture of orbital floor, right side, initial encounter for closed fracture (principal); S01.111A Laceration without foreign body of right eyelid and periocular area, initial encounter; S80.01XA Contusion of right knee, initial encounter; W18.09XA Striking against other object with subsequent fall, initial encounter; Y93.84 Activity, sleeping; Y92.003 Bedroom of unspecified non-institutional (private) residence as the place of occurrence of the external cause; I10 Essential (primary) hypertension; E11.65 Type 2 diabetes mellitus with hyperglycemia
CPT/HCPCS: 36415; 70450; 70486; 82948; 99283

== ENCOUNTER 2020-02-17 09:00 | Emergency (ER) | payer MEDICARE, OTHER ==
[~2020-02-17] VITALS: Ht 188 cm; Wt 95.3 kg
[~2020-02-17 09:00] MED LIST changes: +CLINDAMYCIN HC150 MG PO
[2020-02-17] MEDS ORDERED: CLONIDINE HCL 0.1 MG TAB PO ONE (09:30)
--- NOTE | 2020-02-17 10:14 | Emergency Department Note ---
History of Present Illnes History of Present Illness Chief Complaint: General Medicine Complaints History of Present Illness This is a 89 year old male MY BP IS UP Onset (how long ago): day(s) (1) Location: GENERAL Radiation: Denies non-radiation, Denies back, Denies neck, Denies extremity, Denies abdomen, Denies periumbilical, Denies flank, Denies proximal, Denies distal, Denies other Severity: mild Onset quality: gradual Duration (how long): day(s) (1) Timing of current episode: intermittent Progression: resolved Context: Denies recent illness, Denies recent surgery, Denies recent immobilization, Denies recent travel, Denies trauma/injury, Denies new medications, Denies hx of DVT/PE, Denies non-compliance w/ medications, Denies other Relieving factors: none Exacerbating factors: none Associated symptoms: Denies denies other symptoms, Denies confusion, Denies chest pain, Denies cough, Denies diaphoresis, Denies fever/chills, Denies headaches, Denies loss of appetite, Denies malaise, Denies nausea/vomiting, Denies rash, Denies seizure, Denies shortness of breath, Denies syncope, Denies weakness, Denies other Past Medical/Family History Physician Review I have reviewed the patient's past medical and family history. Any updates have been documented here. Past Medical History Past Medical History: Hypertension, Diabetes, Cancer, Depression, GERD, Hyperlipedemia Other Medical History: Prostate Cancer Gout Past Surgical History: Hernia Repair Other Surgery: Prostate surgery Inguinal hernia surgery Parathyroidectomy Left Cataract Social History Smoking Cessation: Never Smoker Alcohol Use: None Other Last Tetanus: UTD Review of Systems Review of Systems Constitutional: Reports no symptoms EENTM: Reports no symptoms Cardiovascular: Reports no symptoms Respiratory: Reports no symptoms Gastrointestinal: Reports no symptoms Genitourinary: Reports no symptoms Musculoskeletal: Reports no symptoms Integumentary: Reports no symptoms Neurological: Reports no symptoms Psychological: Reports no symptoms Endocrine: Reports no symptoms Hematological/Lymphatic: Reports no symptoms Physical Exam Related Data Allergies: Coded Allergies: morphine (Verified Allergy, Severe, cardiac arrest, 01/24/20) cephalexin (Verified Allergy, Mild, hives/rash, 01/24/20) Triage Vital Signs Vital Signs Date Time Temp Pulse Resp B/P (MAP) Pulse Ox O2 Delivery O2 Flow Rate FiO2 02/17/20 10:03 62 16 163/70 96 Room Air Vital signs reviewed: Yes Physical Exam CONSTITUTIONAL Constitutional: Present well-developed, Present well-nourished HENT HENT: Present normocephalic, Present atraumatic, Present oropharynx clear/mo ist, Present nose normal HENT L/R: Present left ext ear normal, Present right ext ear normal EYES Eyes: Reports PERRL, Reports conjunctivae normal NECK Neck: Present ROM normal PULMONARY Pulmonary: Present effort normal, Present breath sounds normal CARDIOVASCULAR Cardiovascular: Present regular rhythm, Present heart sounds normal, Present capillary refill normal, Present normal rate GASTROINTESTINAL Abdominal: Present soft, Present nontender, Present bowel sounds normal GENITOURINARY Genitourinary: Present exam deferred SKIN Skin: Present warm, Present dry MUSCULOSKELETAL Musculoskeletal: Present ROM normal NEUROLOGICAL Neurological: Present alert, Present oriented x 3, Present no gross motor or sensory deficits PSYCHOLOGICAL Psychological: Present mood/affect normal, Present judgement normal Assessment & Plan Medical Decision Making MDM UNCONTROLLED HTN Reassessment Reassessment BETTER Assessment & Plan Final Impression: (1) Uncontrolled hypertension Last Vital Signs Date Time Temp Pulse Resp B/P (MAP) Pulse Ox O2 Delivery O2 Flow Rate FiO2 02/17/20 10:06 163/70 02/17/20 10:03 62 16 96 Room Air Home Meds Active Scripts Clindamycin Hcl (CLINDAMYCIN HCL) 150 Mg Capsule, 300 MG PO TID for infection for 10 Days, #30 TAB-CAP 0 Refills 2 TABS PO TID Prov:PAXTON REID MD 01/24/20 Famotidine (FAMOTIDINE) 20 Mg Tab, 20 MG PO BIDAC for 30 Days, TAB Prov:JOSÉ MIGUEL COWAN MD 12/23/17 Reported Medications Nifedipine (NIFEDIPINE) 20 Mg Capsule, 60 MG PO DAILY 01/03/20 Dexlansoprazole (DEXILANT) 60 Mg Cap., 60 MG PO DAILY THERAPEUTIC INTERCHANGE WITH PROTONIX PER [facility] 01/03/20 Sertraline Hcl (SERTRALINE HCL) 50 Mg Tablet, 50 MG PO HS, #30 TAB 09/22/19 Rosuvastatin Calcium (CRESTOR) 10 Mg Tab, 10 MG PO HS THERAPEUTICALLY SUBSTITUTED WITH SIMVASTATIN 40MG 02/28/18 Tolterodine Tartrate (DETROL LA) 4 Mg Cap.er.24h, 4 MG PO DAILY, #30 CAP 12/21/17 Dutasteride (AVODART) 0.5 Mg Capsule, 0.5 MG PO DAILY, #30 CAP 12/21/17 Furosemide (FUROSEMIDE) 20 Mg Tablet, 20 MG PO BID 12/21/17 Linagliptin (TRADJENTA) 5 Mg Tablet, 5 MG PO DAILY 12/21/17 Allopurinol (ALLOPURINOL) 300 Mg Tablet, 300 MG PO DAILY, #30 TAB 12/21/17 Medications in the ED Clonidine HCl 0.1 mg ONCE ONCE PO ; Start 02/17/20 at 09:30; Stop 02/17/20 at 09:34; Status DC JUAN ANTONIO SINGH MD Feb 17, 2020 10:14
== END 2020-02-17 10:25 | disposition home or self-care (01) ==
LOC: FSED 09:30
DX: I10 Essential (primary) hypertension (principal); E11.9 Type 2 diabetes mellitus without complications; E78.5 Hyperlipidemia, unspecified; K21.9 Gastro-esophageal reflux disease without esophagitis; M10.9 Gout, unspecified; Z85.46 Personal history of malignant neoplasm of prostate
CPT/HCPCS: 99283

== ENCOUNTER 2020-06-04 16:27 | Observation (INO) | payer MEDICARE ==
[~2020-06-04] VITALS: Ht 188 cm; Wt 93.9 kg
[2020-06-04] MEDS ORDERED: CEFTRIAXONE SOD 1 GM 50 ML IV ONE (18:45)
[2020-06-04] MEDS ORDERED: SODIUM CHLORIDE 0.9% 1000ML 1,000 ML IV SCH (18:45)
[2020-06-04] MEDS ORDERED: ASPIRIN 81 MG CHEW TAB PO ONE (19:00)
[2020-06-04] MEDS ORDERED: ONDANSETRON HCL INJ 2MG/ML 2ML 2 MG/ML VIAL IV PRN (19:00)
[2020-06-04] MEDS ORDERED: SODIUM CHLORIDE FLUSH 10 ML SYR INJ PRN (19:00)
[2020-06-04] MEDS ORDERED: SODIUM CHLORIDE 0.9% 1000ML 1,000 ML ONE (19:34)
[2020-06-04 22:42] VITALS: BP 151/68
[2020-06-04 23:17] VITALS: BP 151/68
[2020-06-05] VITALS (8 sets, daily range): BP systolic 140–159; BP diastolic 68–80
[2020-06-05 01:05] LABS: CREATINE KINASE MB 1.6 ng/mL (0-5.0)
[2020-06-05 06:56] LABS: BASOPHILS # (AUTO) 0.1 (0.0-0.1); BASOPHILS % 0.8 % (0.0-1.0); EOSINOPHILS # (AUTO) 0.3 (0.0-0.4); EOSINOPHILS % 4.2 % (0.0-6.0); HEMATOCRIT 36.2 % (38.2-49.6); LYMPHOCYTES # (AUTO) 2.3 (1.0-3.2); LYMPHOCYTES % 37.4 % (18.0-39.1); MEAN CORPUSCULAR HEMOGLOBIN 31.4 pg (28-32); MEAN CORPUSCULAR HGB CONC 33.1 g/dL (31-35); MEAN CORPUSCULAR VOLUME 94.8 fL (81-99); MONOCYTES # (AUTO) 0.8 (0.2-0.8); MONOCYTES % 12.7 % (4.4-11.3); NEUTROPHILS # (AUTO) 2.8 (2.1-6.9); NEUTROPHILS % 44.4 % (38.7-80.0); PLATELET COUNT 183 x10e3/uL (140-360); RED BLOOD COUNT 3.82 x10e6/uL (4.3-5.7); RED CELL DISTRIBUTION WIDTH 13.2 % (11.7-14.4)
[2020-06-05 07:19] LABS: ANION GAP 9.1 mmol/L (8-16); CALCIUM 8.7 mg/dL (8.4-10.2); CREATININE, SERUM 1.56 mg/dL (0.72-1.25); POTASSIUM 4.1 mmol/L (3.5-5.1)
[2020-06-05 07:28] LABS: CREATINE KINASE MB 1.7 ng/mL (0-5.0)
[2020-06-05] MEDS: DUTASTERIDE 0.5 MG CAP PO SCH (08:52)
[2020-06-05] MEDS: NIFEDIPINE CR 30 MG TAB PO SCH (08:52)
[2020-06-05] MEDS: ALLOPURINOL 300 MG TAB PO SCH (08:54)
[2020-06-05] MEDS: PANTOPRAZOLE SOD 40 MG TABEC PO SCH (08:54)
[2020-06-05 13:54] LABS: CREATINE KINASE MB 1.7 ng/mL (0-5.0)
[2020-06-05] MEDS ORDERED: FAMOTIDINE 20 MG TAB PO SCH (16:30)
[2020-06-05] MEDS ORDERED: CONSTULOSE10 GM/15 M PO (19:06)
[2020-06-05] MEDS: LACTULOSE SYRUP 20 GM/30 ML UDC PO SCH (20:08)
[2020-06-05] MEDS ORDERED: SERTRALINE HCL 50 MG TAB PO SCH (21:00)
[2020-06-05] MEDS ORDERED: SIMVASTATIN 40 MG TAB PO SCH (21:00)
[2020-06-06 00:53] VITALS: BP 129/74
[2020-06-06 05:27] VITALS: BP 129/73
[2020-06-06] MEDS: LACTULOSE SYRUP 20 GM/30 ML UDC PO SCH (08:31)
[2020-06-06] MEDS: ALLOPURINOL 300 MG TAB PO SCH (08:31)
[2020-06-06] MEDS: DUTASTERIDE 0.5 MG CAP PO SCH (08:31)
[2020-06-06] MEDS: PANTOPRAZOLE SOD 40 MG TABEC PO SCH (08:31)
[2020-06-06] MEDS: NIFEDIPINE CR 30 MG TAB PO SCH (08:32)
[2020-06-06] MEDS ORDERED: ZOFRAN4 MG PO (08:59)
[2020-06-06 09:01] VITALS: BP 143/66
[2020-06-06 09:34] VITALS: BP 143/66
[2020-06-06 09:38] LABS: HEMOGLOBIN 13.3 g/dL (14.0-18.0)
[2020-06-06 09:58] LABS: ANION GAP 15.6 mmol/L (8-16); CALCIUM 9.4 mg/dL (8.4-10.2); CREATININE, SERUM 1.94 mg/dL (0.72-1.25); POTASSIUM 4.6 mmol/L (3.5-5.1)
== END 2020-06-06 11:40 | disposition home or self-care (01) ==
LOC: FSED 16:40 → INTOOBSV 18:51 → ERHOLD 18:51 → MED/SURG3 22:02
PROVIDERS: ADMIT Internal Medicine; ATTEND Internal Medicine
DX: R53.1 Weakness (principal); Z85.46 Personal history of malignant neoplasm of prostate; I10 Essential (primary) hypertension; E78.5 Hyperlipidemia, unspecified; E11.22 Type 2 diabetes mellitus with diabetic chronic kidney disease; I12.9 Hypertensive chronic kidney disease with stage 1 through stage 4 chronic kidney disease, or unspecified chronic kidney disease; N18.30 Chronic kidney disease, stage 3 unspecified
CPT/HCPCS: 36415 ×2; 70450; 71046; 80048 ×2; 80053; 81003; 82550; 82553 ×2; 82948; 83605; 84484 ×2; 85014; 85018; 85025 ×2; 93005; 99284; G0378 ×3; J7030; S0164 ×2